=== PATIENT | female | born 1970 | race Caucasian/White ===

== ENCOUNTER 2024-01-09 14:56 | Outpatient (OUT) | payer OTHER, SELFPAY ==
--- NOTE | 2024-01-09 15:02 | US_ITS ---
[address] [address] Patient Name: JACEK LAROSE MRN: [id number] date: 1970 Sex: F Assigned Patient Location: US Current Patient Location: Accession/Order Number: [id number] Exam Date: 01/09/2024 15:03 Report Date: 01/10/2024 06:30 At the request of: SHENG TREJO Procedure: US pelvis w/ transvaginal EXAMINATION: US pelvis w/ transvaginal HISTORY: postmenopausal bleeding N95.0 COMPARISON: No relevant comparison available. TECHNIQUE: Transabdominal and/or transvaginal sonographic examination was performed as indicated by examination type. FINDINGS: UTERUS: Normal size and appearance. Uterus size: 7.0 x 3.8 x 4.7 cm ENDOMETRIUM: Slightly heterogeneous. Endometrial thickness: 8 mm RIGHT OVARY: Normal size and appearance. Duplex Doppler demonstrates normal waveform and flow; resistive index [0.4. Ovary size: 1.9 x 1.7 x 1.9 cm LEFT OVARY: Not seen. No suspicious adnexal findings. CUL-DE-SAC: Unremarkable. No significant free fluid. BLADDER: Unremarkable. OTHER: None. US/US pelvis w/ transvaginal IMPRESSION: 1. Slightly heterogeneous endometrium which is mildly thickened for a postmenopausal patient, 8 mm. Endometrial hyperplasia? Electronically authenticated by: LA NENA LEYVA Date: 01/10/2024 06:30
== END 2024-01-09 14:57 | disposition home or self-care (01) ==
LOC: US 14:56
PROVIDERS: Family Provider Family Medicine; PCP Family Medicine; Visit Provider Obstetrics & Gynecology
DX: N95.0 Postmenopausal bleeding (principal)
CPT/HCPCS: 76830; 76856

== ENCOUNTER 2024-01-27 12:24 | Outpatient (OUT) | payer OTHER, SELFPAY ==
--- OUTSIDE RECORDS SUMMARY | 2024-01-27 12:31 | XMS_ITS | CCD ---
Author Name Unknown Address [address] [place] [address] Organization [facility] Care Team Providers Care Player Piano Technician Name Role Phone Chad Anderson Primary Care Provider [phone] CHONG LAYNE Referring Unavailable HEMEYER, CHAD J Primary Care Unavailable HEMEYER, EDAYAAN J Primary Care Unavailable CHONG LAYNE Referring Unavailable HEMEYER, EDAYAAN J Primary Care Unavailable CHONG LAYNE Referring Unavailable CHONG LAYNE Referring Unavailable HEMEYER, EDAYAAN J Primary Care Unavailable HEMEYER, EDWARD J Primary Care Unavailable CHONG LAYNE Referring Unavailable HEMEYER, EDAYAAN Hoang Primary Care Unavailable HEMEYER, EDWARD J Referring Unavailable CHONG LAYNE Referring Unavailable HEMEYER, EDAYAAN J Primary Care Unavailable CHONG LAYNE Admitting Unavailable CHONG LAYNE Attending Unavailable HEMEYER, EDWARD J Primary Care Unavailable CHONG LAYNE Referring Unavailable CHONG LAYNE Referring Unavailable HEMEYER, EDAYAAN J Primary Care Unavailable HEMEYER, EDAYAAN J Primary Care Unavailable BARBARA GUARDADO Referring Unavailable HEMEYER, EDAYAAN J Primary Care Unavailable CHONG LAYNE Referring Unavailable HEMEYER, EDWARD J Primary Care Unavailable CHONG LAYNE Referring Unavailable HEMEYER, EDAYAAN J Primary Care Unavailable CHONG LAYNE Referring Unavailable HEMEYER, EDAYAAN J Primary Care Unavailable CHONG LAYNE Referring Unavailable HEMEYER, EDAYAAN J Primary Care Unavailable CHONG LAYNE Referring Unavailable HEMEYER, EDWARD J Primary Care Unavailable CHONG LAYNE Referring Unavailable HEMEYER, EDAYAAN J Primary Care Unavailable CHONG LAYNE Referring Unavailable CHONG LAYNE Referring Unavailable HEMEYER, EDWARD J Primary Care Unavailable CHONG LAYNE Referring Unavailable HEMEYER, EDWARD J Primary Care Unavailable CHAD ANDERSON Primary Care Unavailable CHONG LAYNE Referring Unavailable CHAD ANDERSON Primary Care Unavailable CHONG LAYNE Referring Unavailable CHAD ANDERSON Primary Care Unavailable CHONG LAYNE Referring Unavailable Chad Anderson Primary Care Provider [phone] Chad Anderson MD Primary Care Provider Chad Anderson MD Primary Care Provider SHENG VIDALES Attending Unavailable SHENG VIDALES Attending Unavailable Allergies Allergy Classification Reported Allergen(s) Allergy Type Date of Onset Reaction(s) Facility (20 sources) Amoxicillin Drug Allergy 6 Rash [facility] [employer] [facility] Phone: (20 sources) Meperidine Drug Allergy 6 Nausea And Vomiting [facility] [employer] Phone: (2 sources) [place] Drug Allergy 4 [facility] (2 sources) Glycerin Drug Allergy 4 [facility] (2 sources) Meperidine Drug Allergy 4 Nausea Only [facility] (2 sources) WHEAT DEXTRIN Drug Allergy 4 [facility] Medications Current Medications Medication Drug Class(es) Dates Sig (Normalized) Sig (Original) acetaminophen 325 mg / HYDROcodone bitartrate 5 mg oral tablet (1 source) Opioid Agonist Start: 12-05-2020 End: 12-08-2020 take 1 tablet by mouth every six hours as needed for pain and pain, then take 1-2 tablets by mouth every four to six hours as needed for pain and pain HYDROcodone-aceta minophen (NORCO) 5-325 MG per tablet Indications: Right carpal tunnel syndrome Take 1 tablet by mouth every 6 hours as needed for Pain for up to 3 days. 1-2 tabs by mouth every 4-6 hours as needed for pain. 6 tablet 0 12/05/2020 12/08/2020 Active Ascorbic Acid (1 source) Vitamin C Ascorbic Acid (VITAMIN C PO) Take by mouth 0 Active calcium chloride 0.0014 meq/ml / potassium chloride 0.004 meq/ml / sodium chloride 0.103 meq/ml / sodium lactate 0.028 meq/ml injectable solution (1 source) Start: 12-05-2020 lactated ringers infusion 2 ml fentaNYL 0.05 mg/ml injection (2 sources) Opioid Agonist Start: 12-05-2020 fentaNYL (SUBLIMAZE) injection 50 mcg Start: 12-05-2020 fentaNYL (SUBL IMAZE) injection 25 mcg ketorolac tromethamine 10 mg oral tablet (2 sources) Nonsteroidal Anti-inflammatory Drug, Cyclooxygenase Inhibitor Start: 11-11-2017 take 1 tablet by mouth three times daily, then take 1 tablet by mouth three times daily ketorolac (TORADOL) 10 MG tablet Take 1 tablet by mouth 3 times daily for 5 days 1 tab by mouth 3 times daily 15 tablet 0 11/11/2017 Active 2 ml metoclopramide 5 mg/ml prefilled syringe (1 source) Dopamine-2 Receptor Antagonist Start: 12-05-2020 End: 12-05-2020 metoclopramide (REGLAN) injection 10 mg Multiple Vitamins-Minerals (MULTIVITAMIN ADULT PO) (1 source) Multiple Vitamins-Minerals (MULTIVITAMIN ADULT PO) Take by mouth 0 Active 2 ml ondansetron 2 mg/ml injection (1 source) Serotonin-3 Receptor Antagonist Start: 12-05-2020 End: 12-05-2020 ondansetron (ZOFRAN) injection 4 mg oxyCODONE hydrochloride 5 mg oral tablet (1 source) Opioid Agonist Start: 12-05-2020 End: 12-05-2020 oxyCODONE (ROXICODONE) immediate release tablet 5 mg progesterone 200 mg oral capsule (2 sources) Progesterone Start: 12-20-2023 take 1 capsule by mouth once daily at bedtime progesterone 200 MG capsule TAKE 1 CAPSULE BY MOUTH ONCE DAILY AT BEDTIME 0 12/20/2023 Active VITAMIN D PO (1 source) VITAMIN D PO Hector e by mouth 0 Active Zinc (1 source) ZINC PO Take by mouth 0 Active Completed/Discontinued Medications Medication Drug Class(es) Dates Sig (Normalized) Sig (Original) ceFAZolin 2000 mg injection (1 source) Cephalosporin Antibacterial Start: 12-05-2020 End: 12-05-2020 ceFAZolin (ANCEF) 2 g in dextrose 3 % 50 mL IVPB (duplex) ethinyl estradiol 0.035 mg / norethindrone acetate 1 mg oral tablet (20 sources) Estrogen Start: 12-26-2017 End: 11-27-2020 take 1 tablet by mouth once daily NORTREL 1/35, 28, 1-35 MG-MCG per tablet TAKE ONE TABLET BY MOUTH ONCE DAILY 84 tablet 4 12/26/2017 11/27/2020 Discontinued (Therapy completed) liothyronine sodium 0.005 mg oral tablet (20 sources) l-Triiodothyronine End: 11-27-2020 take 1 tablet by mouth twice daily liothyronine (CYTOMEL) 5 MCG tablet Take 5 mcg by mouth 2 times daily 0 11/27/2020 Discontinued (Therapy completed) metoprolol tartrate 25 mg oral tablet (20 sources) beta-Adrenergic Alexia End: 11-27-2020 take 1 tablet by mouth twice daily metoprolol tartrate (LOPRESSOR) 25 MG tablet Take 25 mg by mouth 2 times daily 0 11/27/2020 Discontinued (Therapy completed) Problems Problem Classification Problem Date Documented Da te Episodic/Chronic Menopausal disorders (2 sources) Postmenopausal bleeding; Translations: [Postmenopausal bleeding] 12-27-2023 Chronic Other nervous system disorders (1 source) Carpal tunnel syndrome of right wrist; Translations: [Right carpal tunnel syndrome] Unclassified (2 sources) Patient encounter status; Translations: [Preoperative testing] Results Test Name Value Interpretation Reference Range Facility Screening Mammogram, Chetan singh 07-01-2022 Screening Mammogram, Bilateral COMPARISON: Dating back to January 16, 2020 and July 21, 2018 TECHNIQUE: 2D and 3D Tomosynthesis of the right and left breasts was performed. FINDINGS: Breast composition demonstrates heterogeneously dense parenchyma. Overall appearance stable. No suspicious microcalcifications, dominant mass lesions, or distortion is present. IMPRESSION: BI-RADS 1- Negative Mammogram Board Certified Radiologist. Accredited by the ACR and FDA. MAMMOGRAPHY IS VERY IMPORTANT TO YOUR HEALTH. THE CURRENT CITIZEN OF [place] [employer] GUIDELINES RECOMMENDS ANNUAL MAMMOGRAPHY BEGINNING AT AGE 40 THIS FACILITY USES A REMINDER SYSTEM TO ENSURE ALL PATIENTS RECEIVE REMINDER NOTIFICATIONS AT THE APPROPRIATE TIME BASED ON THE RECOMMENDATIONS OF THIS EXAM. Report reported and signed by Keyshawn Enciso on 07/07/2022 1404 Normal [facility] Is/It Project Manager XR Bone Density (DEXA)on XR Bone Density (DEXA) RegionBMDYoung-AdultA ge-Matched Total(g/cm2)(%)T-Scor e(%)Z-Score [id number]+0.2116+ 1.1 Impression: The mean BMD and corresponding T-score indicated above indicate Normal Bone Mass and places the patient at no significant risk for fracture. This information can serve as a baseline with which to compare future studies. Recommend follow-up exam in 2 years, sooner as clinically necessary. RegionBMDYoung-AdultA ge-Matched Total(g/cm2)(%)T-Scor e(%)Z-Score L1-[id number]+1.6128+ 2.5 Impression: The mean BMD and corresponding T-score indicated above indicate Normal Bone Mass and places the patient no significant risk for fracture. This information can serve as a baseline with which to compare future studies. Recommend follow-up exam in 2 years, sooner as clinically necessary. Comment: The T-score is the primary focus of the interpretation of a patient???s bone mineral density measurement. The T-score is the number of standard deviations an individual is above or below the mean value for a young female having normal bone mass. The WHO defines osteoporosis based on the T-score value??? +1.0 to ???0.9 : Normal bone mass -1.0 to -2.5 : Osteopenia and thus may be at future risk of fracture -2.6 to ???5 : Osteoporosis and ???at significantly increased risk of fracture??? A Z-Score of -2.0 or lower is defined as ???below the expected range for age??? and a Z-Score above -2.0 is ???within the expected range for age.??? Osteoporosis cannot be diagnosed in men under the age of 50 on the basis of BMD alone. Per 2019 ISCD guidelines, Z-Scores (not T-Scores) are preferred when reporting data in premenopausal females and males less than 50 years of age. Report reported and signed by Keyshawn Enciso on 07/05/2022 0822 Normal [facility] Is/It Project Manager COVID-19on 11-30-2020 Source .NASOPHARYNGEAL SWAB [place] [id number] 11-30-2020 SARS-CoV-2 Normal [place], [place] Comment on above: Performed By: #### C OVID #### [employer] [address] [place] [address] Plate Drying Machine Tender: Miguelangel Mora MD [address] [place] [address] Plate Drying Machine Tender: Roger Carmen MD SARS-CoV-2 Not Detected Normal [place], [place] Comment on above: Result Comment: The specimen is NEGATIVE for SARS-CoV-2, the novel coronavirus associated with COVID-19. A negative result does not rule out COVID-19. Anil SARS-CoV-2 for use on the Anil [employer] Systems is a real-time RT-PCR test intended for the qualitative detection of nucleic acids from SARS-CoV-2 in clinician-collected nasal, nasopharyngeal, and oropharyngeal swab specimens from individuals who meet COVID-19 clinical and/or epidemiological criteria. Anil SARS-CoV-2 is for use only under Emergency Use Authorization (EUA) in laboratories certified under Clinical Laboratory Improvement Amendments of 1988 (CLIA), 42 U.S.C. ?263a, that meet requirements to perform high or moderate complexity tests. An individual without symptoms of COVID-19 and who is not shedding SARS-CoV-2 virus would expect to have a negative (not detected) result in this assay. Fact sheet for Healthcare Providers: https://www.fda.gov/media/564022/download Fact sheet for Patients: https://www.fda.gov/media/833946/download METHODOLOGY: RT-PCR Performed By: #### C OVID #### [facility] [address] [place] [address] Plate Drying Machine Tender: Miguelangel Mora MD [facility] [address] [place] [address] [place] [address] Plate Drying Machine Tender: Roger Carmen MD The specimen is NEGATIVE for SARS-CoV-2, the novel coronavirus associated with COVID-19. A negative result does not rule out COVID-19. Anil SARS-CoV-2 for use on the Anil [employer] Systems is a real-time RT-PCR test intended for the qualitative detection of nucleic acids from SARS-CoV-2 in clinician-collected nasal, nasopharyngeal, and oropharyngeal swab specimens from individuals who meet COVID-19 clinical and/or epidemiological criteria. Anil SARS-CoV-2 is for use only under Emergency Use Authorization (EUA) in laboratories certified under Clinical Laboratory Improvement Amendments of 1988 (CLIA), 42 U.S.C. 263a, that meet requirements to perform high or moderate complexity tests. An individual without symptoms of COVID-19 and who is not shedding SARS-CoV-2 virus would expect to have a negative (not detected) result in this assay. Fact sheet for Healthcare Providers: https://www.fda.gov/media/984678/download Fact sheet for Patients: https://www.fda.gov/media/481736/download METHODOLOGY: RT-PCR SARS-CoV-2, Rapid Normal [place], [place] Comment on above: Performed By: #### C OVID #### [address] [id number] Plate Drying Machine Tender: Miguelangel Mora MD [address] [place] [address] Plate Drying Machine Tender: Roger Carmen MD [id number] 11-28-2020 SARS-CoV-2 Source .NASOPHARYNGEAL SWAB Normal [facility] Comment on above: Performed By: #### C OVID #### [address] [id number] Plate Drying Machine Tender: Miguelangel Mora MD [address] [place] [address] Plate Drying Machine Tender: Roger Carmen MD Basic Metabolic Panelon 12-1 Anion gap [Moles/Vol] 7 mmol/L Low 9 - 17 mmol/L [place] Bun/Cre Ratio 34 High [place], [place] Calcium [Mass/Vol] 10.5 mg/dL High 8.6 - 10. 4 mg/dL [place] Chloride [Moles/Vol] 101 mmol/L 98 - 10 7 mmol/L [place] CO2 [Moles/Vol] 28 mmol/L 20 - 31 mmol/L [place] Creatinine [Mass/Vol] 0.64 mg/dL 0.5 - 0.9 mg/dL [place] GFR >60 >60 mL/min [place] GFR Non- >60 >60 mL/min [place] Glucose [Mass/Vol] 106 mg/dL High 70 - 99 mg/dL [place], [place] Interpretation and review of laboratory results Abnormal [place] Potassium [Moles/Vol] 4.9 mmol/L 3.7 - 5.3 mmol/L [place] Sodium [Moles/Vol] 136 mmol/L 135 - 144 mmol/L [place] Urea nitrogen [Mass/Vol] 22 mg/dL High 6 - 20 mg/dL [place] Basic Metabolic Profon 11-06 Calcium [Mass/Vol] 10.5 mg/dL High 8.6-10.4 [facility] Comment on above: Performed By: #### C DP, BMP #### [facility] [address] [place] [address] [place] [address] Plate Drying Machine Tender: Roger Carmen MD (cont.) [facility] Comment on above: Result Comment: Aver age GFR for 50-59 years old: 93 mL/min/1.73sq m Chronic Kidney Disease: <60 mL/min/1.73sq m Kidney failure: <15 mL/min/1.73sq m eGFR calculated using average adult body mass. Additional eGFR calculator available at: http://www.[employer]/multiple_crcl_2012.htm Performed By: #### C DP, BMP #### [facility] [address] [place] [address] Plate Drying Machine Tender: Roger Carmen MD Anion gap [Moles/Vol] 7 mmol/L Low 08-07 [facility] Comment on above: Performed By: #### C DP, BMP #### [facility] [address] [place] [address] Plate Drying Machine Tender: Roger Carmen MD BUN/CRE Ratio 34 High 9-[address] [facility] Comment on above: Performed By: #### C DP, BMP #### [facility] [address] [place], [place] [id number] Plate Drying Machine Tender: Roger Carmen MD Chloride [Moles/Vol] 101 mmol/L Normal 98-107 [facility] Comment on above: Performed By: #### C DP, BMP #### [facility] [address] [place], [place] [id number] Plate Drying Machine Tender: Roger Carmen MD CO2 [Moles/Vol] 28 mmol/L Normal 20-31 [facility] Comment on above: Performed By: #### C DP, BMP #### [facility] [address] [place], [place] [id number] Plate Drying Machine Tender: Roger Carmen MD Creatinine [Mass/Vol] 0.64 mg/dL Normal 0.50-0.90 [facility] Comment on above: Performed By: #### C DP, BMP #### [facility] [address] [place], [place] [id number] Plate Drying Machine Tender: Roger Carmen MD GFR, Amer >60 Normal >60 [facility] Comment on above: Performed By: #### C DP, BMP #### [facility] [address] [place], [place] [id number] Plate Drying Machine Tender: Roger Carmen MD GFR,non Amer >60 Normal >60 [facility] Comment on above: Performed By: #### C DP, BMP #### [facility] [address] [place], [place] [id number] Plate Drying Machine Tender: Roegr Carmen MD Glucose [Mass/Vol] 106 mg/dL High 70-99 [facility] Comment on above: Performed By: #### C DP, BMP #### [facility] [address] [place], [place] [id number] Plate Drying Machine Tender: Roger Carmen MD Potassium [Moles/Vol] 4.9 mmol/L Normal 3.7-5.3 [facility] Comment on above: Performed By: #### C DP, BMP #### [facility] [address] [place] [address] Plate Drying Machine Tender: Roger Carmen MD Sodium [Moles/Vol] 136 mmol/L Normal 135-144 [facility] Comment on above: Performed By: #### C DP, BMP #### [facility] [address] [place] [address] Plate Drying Machine Tender: Roger Carmen MD Staging: Normal [facility] Comment on above: Result Comment: Stag e 1: Some kidney damage normal GFR Stage 2: Mild kidney damage GFR 60-89 Stage 3: Moderate kidney damage GFR 30-59 Stage 4: Severe kidney damage GFR 15-29 Stage 5: Severe kidney damage GFR <15 ESRD - chronic treatment by dialysis or transplant Performed By: #### C DP, BMP #### [facility] [address] [place] [address] Plate Drying Machine Tender: Roger Carmen MD Urea nitrogen [Mass/Vol] 22 mg/dL High 6-20 [facility] Comment on above: Performed By: #### C DP, BMP #### [facility] [address] [place] [address] Plate Drying Machine Tender: Roger Carmen MD CBC Auto Differentialon 10-21 Basophils (Bld) [#/Vol] 0.06 10*3/uL [place] Basophils/100 WBC (Bld) 1 % 0 - 2 % [place] Differential Type NOT REPORTED [place] Eosinophils (Bld) [#/Vol] 0.11 10*3/uL [place] Eosinophils/100 WBC (Bld) 2 % 1 - 4 % [place] Erythrocyte distribution width (RBC) [Ratio] 12.5 % 11.8 - 14.4 % [place] Hematocrit (Bld) [Volume fraction] 43.1 % 36.3 - 47.1 % [place] Hemoglobin (Bld) [Mass/Vol] 14.1 g/dL 11.9 - 15.1 g/dL [place] Immature granulocytes (Bld) [#/Vol] 0 % 0 [place] Immature granulocytes (Bld) [#/Vol] 10*3/uL [place] Lymphocytes (Bld) [#/Vol] 2.87 10*3/uL [place] Lymphocytes/100 WBC (Bld) 40 % 24 - 43 % [place] MCH (RBC) [Entitic mass] 29.4 pg 25.2 - 33.5 pg [place] MCHC (RBC) [Mass/Vol] 32.7 g/dL 28.4 - 34.8 g/dL [place] MCV (RBC) [Entitic vol] 89.8 fL 82.6 - 102.9 fL [place] Monocytes (Bld) [#/Vol] 0.58 10*3/uL [place] Monocytes/100 WBC (Bld) 8 % 3 - 12 % [place] Platelet mean volume (Bld) [Entitic vol] 10.2 fL 8.1 - 13.5 fL [place], [place] Platelets (Bld) [#/Vol] 290 10*3/uL [place] Platelets (Bld) [#/Vol] NOT REPORTED [place] RBC (Bld) [#/Vol] 4.80 10*6/uL 3.95 - 5.1 1 m/uL [place] RBC morphology finding Nom (Bld) NOT REPORTED [place] Segmented neutrophils/100 WBC (Bld) 49 % 36 - 65 % [place] Segs Absolute 3.58 [place] WBC (Bld) [#/Vol] 0.0 10*3/uL 0.0 per 10 0 WBC [place] WBC (Bld) [#/Vol] 7.2 10*3/uL [facility] CBC with Diffon 11-06-2020 Abs. Basophil 0.06 k/uL Normal 0.00-0.[address] [facility] Comment on above: Performed By: #### C DP, BMP #### [address] [place] [id number] Plate Drying Machine Tender: Roger Carmen MD Abs.Imm.Granulocyte <0.03 Normal 0.00-0.30 [facility] Comment on above: Performed By: #### C DP, BMP #### [address] [place] [address] Plate Drying Machine Tender: Roger Carmen MD Abs.Neutrophil (Seg) 3.58 k/uL Normal 1.50-8.10 [facility] Comment on above: Performed By: #### C DP, BMP #### [address] [place] [address] Plate Drying Machine Tender: Roger Carmen MD Basophils/100 WBC (Bld) 1 % Normal 0-2 [facility] Comment on above: Performed By: #### C DP, BMP #### [address] [place] [id number] Plate Drying Machine Tender: Roger Carmen MD Eosinophils (Bld) [#/Vol] 0.11 10*3/uL Normal 0.00-0.44 [facility] Comment on above: Performed By: #### C DP, BMP #### [address] [place] [id number] Plate Drying Machine Tender: Roger Carmen MD Eosinophils/100 WBC (Bld) 2 % Normal 1-4 [facility] Comment on above: Performed By: #### C DP, BMP #### [address] [place] [id number] Plate Drying Machine Tender: Roger Carmen MD Erythrocyte distribution width (RBC) [Ratio] 12.5 % Normal 11.8-14.4 [facility] Comment on above: Performed By: #### C DP, BMP #### [facility] [address] [place], [place] [id number] Plate Drying Machine Tender: Roger Carmen MD Hematocrit (Bld) [Volume fraction] 43.1 % Normal 36.3-47.1 [facility] Comment on above: Performed By: #### C DP, BMP #### [facility] [address] [place], [place] [id number] Plate Drying Machine Tender: Roger Carmen MD Hemoglobin (Bld) [Mass/Vol] 14.1 g/dL Normal 11.9-15.1 [facility] Comment on above: Performed By: #### C DP, BMP #### [address] [place], [facility]83 Plate Drying Machine Tender: Roger Carmen MD Immature granulocytes (Bld) [#/Vol] 0 % Normal 0 [facility] Comment on above: Performed By: #### C DP, BMP #### [facility] [address] [place], [place] [phone] Plate Drying Machine Tender: Roger Carmen MD Lymphocytes (Bld) [#/Vol] 2.87 10*3/uL Normal 1.10-3.70 [facility] Comment on above: Performed By: #### C DP, BMP #### [facility] [address] [place], [facility]83 Plate Drying Machine Tender: Roger Carmen MD Lymphocytes/100 WBC (Bld) 40 % Normal 24-43 [facility] Comment on above: Performed By: #### C DP, BMP #### [facility] [address] [place] [address] Plate Drying Machine Tender: Roger Carmen MD MCH (RBC) [Entitic mass] 29.4 pg Normal 25.2-33.5 [facility] Comment on above: Performed By: #### C DP, BMP #### [facility] [address] [place], [place] [id number] Plate Drying Machine Tender: Roger Carmen MD MCHC (RBC) [Mass/Vol] 32.7 g/dL Normal 28.4-34.8 [facility] Comment on above: Performed By: #### C DP, BMP #### [facility] [address] [place], [facility] Plate Drying Machine Tender: Roger Carmen MD MCV (RBC) [Entitic vol] 89.8 fL Normal 82.6-102.9 [facility] Comment on above: Performed By: #### C DP, BMP #### [address] [place], [facility]83 Plate Drying Machine Tender: Roger Carmen MD Monocytes (Bld) [#/Vol] 0.58 10*3/uL Normal 0.10-1.20 [facility] Comment on above: Performed By: #### C DP, BMP #### [facility] [address] [place], [facility] Plate Drying Machine Tender: Roger Carmen MD Monocytes/100 WBC (Bld) 8 % Normal 3-12 [facility] Comment on above: Performed By: #### C DP, BMP #### [facility] [address] [place], [place] [address] Plate Drying Machine Tender: Roger Carmen MD Neutrophil (Seg) 49 % Normal 36-65 [facility] Comment on above: Performed By: #### C DP, BMP #### [facility] [address] [place], [place] [address] Plate Drying Machine Tender: Roger Carmen MD NRBC Automated 0.0 per 100 WBC Normal 0.0 [facility] Comment on above: Performed By: #### C DP, BMP #### [facility] [address] [place] [id number] Plate Drying Machine Tender: Roger Carmen MD Platelet mean volume (Bld) [Entitic vol] 10.2 fL Normal 8.1-13.5 [facility] Comment on above: Performed By: #### C DP, BMP #### [address] [place] [address] Plate Drying Machine Tender: Roger Carmen MD Platelets (Bld) [#/Vol] 290 10*3/uL Normal 138-453 [facility] Comment on above: Performed By: #### C DP, BMP #### [address] [place], [place] [id number] Plate Drying Machine Tender: Roger Carmen MD RBC (Bld) [#/Vol] 4.80 10*6/uL Normal 3.95-5.11 [facility] Comment on above: Performed By: #### C DP, BMP #### [address] [place], [facility] Plate Drying Machine Tender: Roger Carmen MD WBC (Bld) [#/Vol] 7.2 10*3/uL Normal 3.5-11.3 [facility] Comment on above: Performed By: #### C DP, BMP #### [address] [place], [facility] Plate Drying Machine Tender: Roger Carmen MD Auto Diff Performed NOT REPORTED Normal [facility] Comment on above: Performed By: #### C DP, BMP #### [address] [place], [facility] Plate Drying Machine Tender: Roger Carmen MD Platelets (Bld) [#/Vol] NOT REPORTED Normal [facility] Comment on above: Performed By: #### C DP, BMP #### [address] [place] [address] Plate Drying Machine Tender: Roger Carmen MD RBC morphology finding Nom (Bld) NOT REPORTED Normal [facility] Comment on above: Performed By: #### C DP, BMP #### [facility] [address] [place] [address] Plate Drying Machine Tender: Roger Carmen MD WBC Morphology NOT REPORTED Normal [facility] Comment on above: Performed By: #### C DP, BMP #### [facility] [address] [place] [address] Plate Drying Machine Tender: Roger Carmen MD EKG 12 Leadon 11-06-2020 Atrial Rate 58 BPM [facility], [place] P [place] 56 degrees [facility], [place] P-R Interval 144 ms [facility], [place] Q-T Interval 408 ms [facility] QRS Duration 80 ms [place], [place] QTc Calculation (Bazett) 400 ms [place], [place] R [place] -27 degrees [facility], [place] T [place] 24 degrees [facility], [place] Ventricular Rate 58 BPM [facility], [place] Sinus bradycardia Otherwise normal ECG When compared with ECG of 01-NOV-2017 11:08, No significant change was found Confirmed by YEN LAM ([id number]) on 11/06/2020 1:11:01 PM [place], [place] [facility] Incoming [place] [facility] [place]/06/[place] 1:11 PM EST Sinus bradycardia Otherwise normal ECG When compared with ECG of 01-NOV-2017 11:08, No significant change was found Confirmed by YEN LAM ([id number]) on 11/06/2020 1:11:01 PM [place] Metabolic Panelon 11-06-2020 GFR/1.73 sq M predicted among non-blacks MDRD (S/P/Bld) [Vol rate/Area] [place] Comment on above: Average GFR for 50-5 9 years old: 93 mL/min/1.73sq m Chronic Kidney Disease: <60 mL/min/1.73sq m Kidney failure: <15 mL/min/1.73sq m eGFR calculated using average adult body mass. Additional eGFR calculator available at: http://[email or web address]_[email or web address].htm Stage 1: Some kidney damage normal GFR Stage 2: Mild kidney damage GFR 60-89 Stage 3: Moderate kidney damage GFR 30-59 Stage 4: Severe kidney damage GFR 15-29 Stage 5: Severe kidney damage GFR <15 ESRD - chronic treatment by dialysis or transplant Physical Rehabilitation Offi ce/Clinic Noon 11-03-2020 Physical Rehabilitation Office/Clinic No EMG/NCS of the RUE completed today. Please see report. Electronically signed by Livier Simon MD 11/03/20 11:17 EST Normal [facility] SYLVIA DIGITAL SCREEN W OR WO C AD BILATERALon 01-16-2020 SYLVIA DIGITAL SCREEN W OR WO CAD BILATERAL EXAMINATION: BILATERAL DIGITAL SCREENING MAMMOGRAM, 01/16/2020 TECHNIQUE: CC and MLO views of the left and right breasts were obtained. Computer aided detection was utilized in the interpretation of this exam. 3D tomosynthesis images were obtained. COMPARISON: 21 July 2018; 10 November 2015 HISTORY: Screening. Positive family history of breast cancer; patient's mother at age 48. Oral contraceptive usage times 12 years. Negative history of hormonal replacement therapy. No prior breast interventions. FINDINGS: Breasts are heterogeneously dense which can obscure small masses. No skin thickening, nipple contour changes, malignant type microcalcifications, areas of architectural distortion, or significant interval changes are noted. IMPRESSION: No evidence of malignancy. Advise annual screening mammography. BREAST DENSITY SUMMARY C: The breasts are heterogeneously dense which may obscure small masses. BI-RADS 1 BIRADS: BIRADS - CATEGORY 1 Negative, no evidence of malignancy in either breast. OVERALL ASSESSMENT - NEGATIVE A letter of notification will be sent to the patient regarding the results. RECOMMENDATION: Routine bilateral annual screening mammography is recommended. Follow-up screening mammogram in 1 year is advised. Interpreted by: Frances Granados MD Signed by: Frances Granados MD 01/16/20 Final result Normal [facility] No evidence of malignancy. Advise annual screening mammography. BREAST DENSITY SUMMARY C: The breasts are heterogeneously dense which may obscure small masses. BI-RADS 1 BIRADS: BIRADS - CATEGORY 1 Negative, no evidence of malignancy in either breast. OVERALL ASSESSMENT - NEGATIVE A letter of notification will be sent to the patient regarding the results. RECOMMENDATION: Routine bilateral annual screening mammography is recommended. Follow-up screening mammogram in 1 year is advised. [place] EXAMINATION: BILATERAL DIGITAL SCREENING MAMMOGRAM, 01/16/2020 TECHNIQUE: CC and MLO views of the left and right breasts were obtained. Computer aided detection was utilized in the interpretation of this exam. 3D tomosynthesis images were obtained. COMPARISON: 21 July 2018; 10 November 2015 HISTORY: Screening. Positive family history of breast cancer; patient's mother at age 48. Oral contraceptive usage times 12 years. Negative history of hormonal replacement therapy. No prior breast interventions. FINDINGS: Breasts are heterogeneously dense which can obscure small masses. No skin thickening, nipple contour changes, malignant type microcalcifications, areas of architectural distortion, or significant interval changes are noted. [place], [place] [facility], [facility] Incoming Radiant Results From [facility] - 01/16/2020 10:04 AM EST EXAMINATION: BILATERAL DIGITAL SCREENING MAMMOGRAM, 01/16/2020 TECHNIQUE: CC and MLO views of the left and right breasts were obtained. Computer aided detection was utilized in the interpretation of this exam. 3D tomosynthesis images were obtained. COMPARISON: 21 July 2018; 10 November 2015 HISTORY: Screening. Positive family history of breast cancer; patient's mother at age 48. Oral contraceptive usage times 12 years. Negative history of hormonal replacement therapy. No prior breast interventions. FINDINGS: Breasts are heterogeneously dense which can obscure small masses. No skin thickening, nipple contour changes, malignant type microcalcifications, areas of architectural distortion, or significant interval changes are noted. IMPRESSION: No evidence of malignancy. Advise annual screening mammography. BREAST DENSITY SUMMARY C: The breasts are heterogeneously dense which may obscure small masses. BI-RADS 1 BIRADS: BIRADS - CATEGORY 1 Negative, no evidence of malignancy in either breast. OVERALL ASSESSMENT - NEGATIVE A letter of notification will be sent to the patient regarding the results. RECOMMENDATION: Routine bilateral annual screening mammography is recommended. Follow-up screening mammogram in 1 year is advised. [place] Vital Signs Date Time Vital Sign Value Performing Clinician Facility 01-04-2024 13:43-0500 Body mass index (BMI) [Ratio] 28.13 kg/m2 Sheng Flash DO Work Phone: [facility] 01-04-2024 13:43-0500 Body weight 69.76 kg Sheng Flash DO Work Phone: [facility] 01-04-2024 13:43-0500 Diastolic blood pressure 84 mm[Hg] Sheng Flash DO Work Phone: [facility] 01-04-2024 13:43-0500 Systolic blood pressure 134 mm[Hg] Sheng Flash DO Work Phone: [facility] 12-05-2020 12:30-0500 BP Diastolic 66 mm[Hg] [facility] , [place] 12-05-2020 12:30-0500 BP Systolic 140 mm[Hg] [place], [place] 12-05-2020 12:30-0500 Pulse (Heart Rate) 66 /min [place], [place] 12-05-2020 12:30-0500 Pulse Oximetry 97 % [place], [place] 12-05-2020 12:30-0500 Respiratory Rate 16 /min [facility], [place] 12-05-2020 11:56-0500 Body Temperature 97.7 [degF] [facility], [place] 12-05-2020 09:18-0500 BMI (Body Mass Index) 24.8 kg/m2 [place], [place] 12-05-2020 09:18-0500 Body weight 63.5 kg [place], [place] 12-05-2020 09:18-0500 Height 160 cm [place] Encounters Encounter Date Encounter Type Care Provider Facility Start: 01-18-2024 End: 01-18-2024 ambulatory SHENG FLASH Not Available Start: 01-04-2024 End: 01-04-2024 ambulatory SHENG FLASH Not Available Start: 01-04-2024 End: 01-04-2024 Office outpatient new 20 minutes Sheng Flash DO Work Phone: [facility] Comment on above: Postmenopausal bleed ing Start: 12-05-2020 End: 12-05-2020 Patient encounter procedure [facility] Start: 12-05-2020 End: 12-05-2020 Subsequent hospital visit by physician Chong Layne Work Phone: [facility] Comment on above: Right carpal tunnel syndrome (Primary Dx) Start: 11-28-2020 End: 12-03-2020 Patient encounter procedure [facility] Start: 11-28-2020 End: 12-02-2020 Subsequent hospital visit by physician Kalli Carrollid19 Pat Screening Schedule [facility] ADMIT Comment on above: Preoperative testing Start: 11-06-2020 End: 11-07-2020 Patient encounter procedure [facility] Start: 11-06-2020 End: 11-06-2020 Subsequent hospital visit by physician Chad CISSE EKG Start: 01-24-2020 End: 01-25-2020 Patient encounter procedure [facility] Start: 01-24-2020 End: 01-24-2020 Subsequent hospital visit by physician Manoj CISSE Physical Therapy Comment on above: Arrived Start: 01-22-2020 End: 01-23-2020 Patient encounter procedure [facility] Start: 01-22-2020 End: 01-22-2020 Subsequent hospital visit by physician Harrison [facility] Comment on above: Arrived Start: 01-21-2020 End: 01-22-2020 Patient encounter procedure [facility] Start: 01-21-2020 End: 01-21-2020 Subsequent hospital visit by physician Harrison [facility] Comment on above: Arrived Start: 01-17-2020 End: 01-18-2020 Patient encounter procedure [facility] Start: 01-17-2020 End: 01-17-2020 Subsequent hospital visit by physician Harrison [facility] Therapy Comment on above: Arrived Start: 01-16-2020 End: 01-19-2020 Patient encounter procedure [facility] Start: 01-16-2020 End: 01-18-2020 Subsequent hospital visit by physician [facility] Mamm[facility] Mammography Comment on above: Breast cancer screen ing by mammogram Start: 01-15-2020 End: 01-16-2020 Patient encounter procedure CHAD [facility] Start: 01-15-2020 End: 01-15-2020 Subsequent [facility] Comment on above: Arrived Start: 01-08-2020 End: 01-09-2020 Patient encounter procedure CHAD Hoang [facility] Start: 01-08-2020 End: 01-08-2020 Subsequent hospital visit by physician [facility] Comment on above: Arrived Start: 01-07-2020 End: 01-08-2020 Patient encounter procedure CHAD Hoang [facility] Start: 01-07-2020 End: 01-07-2020 Subsequent hospital visit by physician Harrison MACIEL Physical Therapy Comment on above: Arrived Start: 01-03-2020 End: 01-04-2020 Patient encounter procedure CHAD Hoang [facility] Start: 01-03-2020 End: 01-03-2020 Subsequent hospital visit by physician [facility] Comment on above: Arrived Start: 01-01-2020 End: 01-02-2020 Patient encounter procedure CHAD Hoang [facility] Start: 01-01-2020 End: 01-01-2020 Subsequent hospital visit by physician Harrison Allan [facility] Physical Therapy Comment on above: Arrived Start: 12-31-2019 End: 01-01-2020 Patient encounter procedure CHAD Hoang [facility] Start: 12-31-2019 End: 12-31-2019 Subsequent hospital visit by physician Manoj CISSE Physical Therapy Comment on above: Arrived Start: 12-27-2019 End: 12-28-2019 Patient encounter procedure CHAD Hoang [facility] Start: 12-27-2019 End: 12-27-2019 Subsequent hospital visit by physician Harrison [facility] Comment on above: Arrived Start: 12-25-2019 End: 12-26-2019 Patient encounter procedure CHONG [facility] Start: 12-25-2019 End: 12-25-2019 Subsequent hospital visit by physician [facility] Comment on above: Arrived Start: 12-24-2019 End: 12-25-2019 [facility] Start: 12-24-2019 End: 12-24-2019 Subsequent hospital visit by physician [facility] Comment on above: Arrived Start: 12-20-2019 End: 12-21-2019 Patient encounter procedure CHAD Hoang [facility] Start: 12-20-2019 End: 12-20-2019 Subsequent hospital visit by physician Harrison [facility] Comment on above: Arrived Start: 12-18-2019 End: 12-19-2019 Patient encounter procedure CHAD Hoang [facility] Start: 12-18-2019 End: 12-18-2019 Subsequent hospital visit by physician Harrison [facility] Comment on above: Arrived Start: 12-13-2019 End: 12-14-2019 Patient encounter procedure CHONG [facility] Start: 12-13-2019 End: 12-13-2019 Subsequent hospital visit by physician Harrison [facility] Comment on above: Arrived Start: 12-11-2019 End: 12-12-2019 Patient encounter procedure CHONG [facility] Start: 12-11-2019 End: 12-11-2019 Subsequent hospital visit by physician Manoj Singleton PT [facility] Physical Therapy Comment on above: Arrived Procedures Date Procedure Procedure Detail Performing Clinician Start: 07-01-2022 Mammography Sheng Fazi o DO Work Phone: Start: 11-28-2020 COVID-19 Sami Jau regui Work Phone: Start: 11-06-2020 Ecg routine ecg w/le ast 12 lds w/i&r [facility] Start: 11-06-2020 EKG REPORT [facility] Start: 11-06-2020 Basic metabolic pane l calcium total [facility] Start: 11-06-2020 Blood count complete auto&auto difrntl wbc [facility] Start: 11-06-2020 Ecg routine ecg w/le ast 12 lds w/i&r Chong Layne Work Phone: Start: 11-06-2020 EKG REPORT [facility]pf Scanni ng Start: 11-06-2020 Basic metabolic pane l calcium total Chong Layne Work Phone: Start: 11-06-2020 Blood count complete auto&auto difrntl wbc Chong Layne Work Phone: Start: 01-16-2020 Screening mammograph y bi 2-view breast inc cad CHONG LAYNE Start: 01-16-2020 Screening digital br east tomosynthesis bi Chad Anderson Other Phone: Plan of Treatment Date Care Activity Detail Author Start: 06-15-2027 Screening for malignant neoplasm of cervix [facility] Start: 01-18-2024 End: 01-18-2024 Patient encounter procedure 01/18/2024 2:40 PM EST Consult [facility] [address] [place] [address] Sheng Vidales, DO [address] [place] [address] [facility] Start: 01-04-2024 End: 01-04-2025 US for US PELVIS-TRANSVAG IF INDICATED Imaging Routine Postmenopausal bleeding Expected: 01/04/2024 (Approximate), Expires: 01/04/2025 [facility] Work Phone: Comment on above: Expected: 01/04/2024 (Approximate), Expires: 01/04/2025 Start: 07-22-2023 Influenza vaccination Influenza Vacc ine (#1) [facility] Start: 07-01-2023 Screening for malignant neoplasm of breast Mammogram [facility] Start: 01-16-2022 Screening for malignant neoplasm of breast Breast cancer screen [place] Start: 12-05-2020 End: 12-05-2020 Hospital Encounter [facility] Comment on above: CARPAL TUNNEL RELEAS E ENDOSCOPIC Start: 2020 Screening for malignant neoplasm of colon Colon cancer screen colonoscopy [place] Start: 2020 Shingles Vaccine (1 of 2) Shingles Vaccine (1 of 2) Work Phone: Start: 07-22-2020 Influenza vaccination Flu vaccine (# 1) - [place], [place] Start: 01-25-2020 End: 01-25-2020 Appointment 01/25/2020 Appointment Physical Therapy Manoj Singleton, SHEL[facility] Start: 01-24-2020 End: 01-24-2020 Appointment 01/24/2020 Appointment Physical Therapy Manoj Singleton PT [facility] Start: 01-22-2020 End: 01-22-2020 Appointment 01/22/2020 Appointment Physical Therapy Harrison Allan [facility] Start: 01-21-2020 End: 01-21-2020 Appointment 01/21/2020 Appointment Physical Therapy Harrison Allan [facility] Start: 01-17-2020 End: 01-17-2020 Appointment 01/17/2020 Appointment Physical Therapy Harrison Allan [facility] Start: 01-16-2020 End: 01-16-2020 Appointment 01/16/2020 Appointment [facility] [place] [facility] Start: 01-15-2020 End: 01-15-2020 [facility] Start: 01-14-2020 End: 01-14-2020 Appointment 01/14/2020 Appointment Physical Therapy [facility] Start: 01-10-2020 End: 01-10-2020 Appointment 01/10/2020 Appointment Physical Therapy Manoj Singleton PT [facility] Start: 01-08-2020 End: 01-08-2020 Appointment 01/08/2020 Appointment Physical Therapy Harrison Allan [facility] Start: 01-07-2020 End: 01-07-2020 Appointment 01/07/2020 Appointment Physical Therapy Harrison Allan [facility] Start: 01-03-2020 End: 01-03-2020 Appointment 01/03/2020 Appointment Physical Therapy Harrison Allan [facility] Start: 01-01-2020 End: 01-01-2020 Appointment 01/01/2020 Appointment Physical Therapy Harrison Allan [facility] Start: 12-31-2019 End: 12-31-2019 Appointment 12/31/2019 Appointment Physical Therapy Manoj Singleton, PT [facility] Physical Therapy Start: 12-27-2019 End: 12-27-2019 Appointment 12/27/2019 Appointment Physical Therapy Harrison Allan [facility] Physical Therapy Start: 12-25-2019 End: 12-25-2019 Hospital Encounter [facility] Physical Therap y Start: 12-24-2019 End: 12-24-2019 Patient encounter procedure 12/24/2019 Appointment Physical Therapy Harrison Allan [facility] Physical Therapy Start: 12-20-2019 End: 12-20-2019 Patient encounter procedure 12/20/2019 Appointment Physical Therapy Harrison Allan [facility] Physical Therapy Start: 12-18-2019 End: 12-18-2019 Patient encounter procedure 12/18/2019 Appointment Physical Therapy Harrison Allan [facility] Physical Therapy Start: 12-13-2019 End: 12-13-2019 Patient encounter procedure 12/13/2019 Appointment Physical Therapy Harrison Allan [facility] Physical Therapy Start: 07-22-2019 Influenza vaccination Flu vaccine (# 1) [facility] [employer] Phone: Start: 2010 Lipid panel Lipid screen [place], [place] Start: 2010 Lipid screen Lipid screen [facility] [employer] Phone: Start: 1991 Cervical cancer screen Cervical canc er screen [employer] Phone: Start: 1991 Screening for malignant neoplasm of cervix [facility] Start: 1989 DTaP/Tdap/Td vaccine (1 - Tdap) DTaP/Tdap/Td vaccine (1 - Tdap) [place] Start: 1985 HIV screen HIV screen [facility] [employer] Phone: Start: 1985 HIV screening HIV screen [place], [place] Start: 1981 DTaP/Tdap/Td vaccine (1 - Tdap) DTaP/Tdap/Td vaccine (1 - Tdap) [facility] [employer] Phone: Start: 1970 Hepatitis C screening Hepatitis C sc reen [place], [place] Start: 1970 Screening for malignant neoplasm of colon [facility] Healthcare Phase I & II - meter ed glucose Phase I & II - metered glucose Point of Care Testing Routine As Needed until discontinued starting 12/05/2020 [facility] Comment on above: As Needed until disc ontinued starting 12/05/2020 Immunizations Immunization Date Immunization Notes Care Provider Ana coleman 11-20-2015 influenza virus vacc ine, unspecified formulation Sheng Flash DO Work Phone: [facility] Healthcare Payers Date Payer Category Payer Unknown [employer] [id number] 2024-Present [address] [place] [address] [id number] 2024 Unknown [id number] 2019 Unknown [facility] [place] [id number] xxxxxxxxxxx 2019-Present [address] [address] [place] [address] xxxxxxxxx [id number] 2019 Unknown [id number]. [id number] 2019 Unknown [id number] [id number]. [id number] 2019 Unknown [id number] 1970 Unknown [id number] 2.16.840.1.710913.3.579.2.17 3 1970 Unknown [id number] 2.16.840.1.191850.3.579.2.17 3 1970 Unknown [id number] 2.16.840.1.940933.3.579.2.17 3 1970 Unknown [id number] 2.16.840.1.566515.3.579.2.17 3 1970 Unknown [id number] 2.16.840.1.962023.3.579.2.17 3 1970 Unknown [id number] 2.16.840.1.816389.3.579.2.17 3 1970 Unknown [id number] 2.16.840.1.761772.3.579.2.17 3 1970 Unknown [id number] 2.16.840.1.220439.3.579.2.17 3 1970 Unknown [id number] 2.16.840.1.745246.3.579.2.17 3 1970 Unknown [id number] 2.16.840.1.745452.3.579.2.17 3 1970 Unknown [id number] 2.16.840.1.440076.3.579.2.17 3 1970 Unknown [id number] 2.16.840.1.733953.3.579.2.17 3 1970 Unknown [id number] 2.16.840.1.850807.3.579.2.17 3 1970 Unknown [id number] 2.16.840.1.220515.3.579.2.17 3 1970 Unknown [id number] 2.16.840.1.321076.3.579.2.17 3 1970 Unknown [id number] 2.16.840.1.454975.3.579.2.17 3 1970 Unknown [id number] 2.16.840.1.996855.3.579.2.17 3 1970 Unknown [id number] 2.16.840.1.972354.3.579.2.17 3 1970 Unknown [id number] 2.16.840.1.501065.3.579.2.17 3 1970 Unknown [id number] 2.16.840.1.068632.3.579.2.17 3 1970 Unknown [id number] 2.16.840.1.745473.3.579.2.17 3 1970 Unknown [id number] 2.16.840.1.991509.3.579.2.17 3 1970 Unknown [id number] 2.16.840.1.041180.3.579.2.12 59 1970 Unknown [id number] 2.16.840.1.905592.3.579.2.12 59 Social History Date Type Detail Facility Start: 11-15-2017 End: 11-27-2020 Tobacco smoking status [facility] Former smoker [facility] Phone: End: 02-19-2006 History of tobacco use Current smoker [facility] Phone: End: 02-19-2006 History of tobacco use Cigarette Smoker [facility] Phone: Start: 11-15-2017 End: 11-27-2020 Alcohol intake Current non-drinker of alcohol (finding) [facility] Phone: Sex Assigned At Not on file [facility] [employer] [facility] Phone: Start: 11-15-2017 End: 11-27-2020 Tobacco use and exposure Never used [employer] Exposure to SARS-CoV -2 (event) Not sure [employer] [place] Start: 12-08-2023 Tobacco smoking stat [facility] Never smoked tobacco [facility] Start: 01-04-2024 Alcohol intake Lifetime non-d jory (finding) [facility] Start: 12-08-2023 History of Social function [facility] Start: 12-08-2023 Tobacco use panel [facility] Start: 12-08-2023 Education 13 [facility] Start: 12-08-2023 Alcohol Comment caffeine: 1-2 cups per day [facility] Start: 1970 Sex Assigned At Female [facility] Start: 01-04-2024 Gender identity Identifies as female gender (finding) [facility] Medical Equipment Procedure Code Equipment Code Equipment Origin al Text Equipment Identifier Dates Button Endoscopi c Bicep 2.6x12mm [id number] Start: 11-11-2017 History of Present illness Narrative 01-04-2024 Margo Mathias, CEO & [facility] - 01/04/2024 1:20 PM EST Note Date & Type Note Facility 01-04-2024 History of Presen t illness Narrative Reason for Appointment: Patient ID: Jacek Larose is a 53 y.o. female who presents for postmenopausal bleeding Patient presents today for Acute Visit appointment. Current Medications: has a current medication list which includes the following prescription(s): progesterone. Medical History: Active Ambulatory Problems Diagnosis Date Noted No Active Ambulatory Problems Resolved Ambulatory Problems Diagnosis Date Noted No Resolved Ambulatory Problems Past Medical History: Diagnosis Date Allergy to food Carpal tunnel syndrome of right wrist Ectopic Hypertension (CMS/HCC) [place] exposure Seasonal allergies Family History Problem Relation Name Age of Onset Breast cancer Mother No Known Problems Sister No Known Problems Brother Diabetes Maternal Grandmother No Known Problems Son No Known Problems Son No Known Problems Son No Known Problems Son No Known Problems Daughter Social History Tobacco Use Smoking status: Never Smokeless tobacco: Not on file Substance Use Topics Alcohol use: Never Comment: caffeine: 1-2 cups per day Drug use: Never Past Surgical History: Procedure Laterality Date BICEPS TENODESIS 10/2017 CARPAL TUNNEL RELEASE Right 11/2020 JOE layne ECTOPIC SURGERY left tube removed WISDOM TOOTH EXTRACTION [place] teeth Allergies Allergen Reactions [place] Oil Other Reaction(s): Unknown Glycerin Other Reaction(s): Unknown Meperidine Hcl Nausea Only Wheat Bran Other Reaction(s): Unknown Amoxicillin Rash Meperidine Nausea And Vomiting Review of Systems: Review of Systems Constitutional: Negative. HENT: Negative. Eyes: Negative. Respiratory: Negative. Cardiovascular: Negative. Gastrointestinal: Negative. Genitourinary: Positive for menstrual problem. Musculoskeletal: Negative. Skin: Negative. Neurological: Negative. All other systems reviewed and are negative. Hematological: Negative. Endocrine: Negative. Allergic/Immunologic: Negative. Objective Physical Exam Constitutional: Appearance: Normal appearance. She is well-developed. Cardiovascular: Rate and Rhythm: Normal rate and regular rhythm. Pulmonary: Effort: Pulmonary effort is normal. Breath sounds: Normal breath sounds. Abdominal: General: Bowel sounds are normal. There is no distension. Palpations: Abdomen is soft. Tenderness: There is no abdominal tenderness. There is no guarding or rebound. Musculoskeletal: General: No swelling. Normal range of motion. Right lower leg: No edema. Left lower leg: No edema. Neurological: Mental Status: She is alert and oriented to person, place, and time. Skin: General: Skin is warm and dry. Psychiatric: Mood and Affect: Mood normal. Behavior: Behavior normal. Vitals and nursing note reviewed. Exam conducted with a motorcycle subassembler present. Vitals: Estimated body mass index is 28.13 kg/m as calculated from the following: Height as of 06/10/22: 5' 2 . Weight as of this encounter: 153 lb 12.8 oz. BP: 134/84 No LMP recorded. Assessment/Plan Encounter Diagnosis Name Primary? Postmenopausal bleeding Pt presents with complaints of postmenopausal bleeding. Pt went into menopause late 2019 early 2020. Pt reassured. Pt given ultrasound to have obtained. Discussed all options with pt in detail. Pt to have D&C hysteroscopy. Discussed prophylactic lovenox d/t homozygous MTHFR. Discussed baby aspirin after procedure. Documented by Margo Mathias LPN on behalf of: Sheng Vidales DO documented in this encounter [facility] History of Present illness Narrative 12-20-2019 Harrison Allan - 12/20/2019 8:15 AM EST Note Date & Type Note Facility 12-20-2019 History of Present illness Narrative [facility] Daily Note Patient: Jacek Larose : 1970 CSN #: [id number] Referring Practitioner: Chong Wright MD Referral Date : 12/05/19 Date: 12/20/2019 Diagnosis: Incomplete tear of L rotator cuff, M75.112, Bursitis of L shoulder, M75.52 Treatment Diagnosis: L SLAP tear, incomplete rotator cuff tear Onset Date: 09/25/19 PT Insurance Information: [employer] Total # of Visits Approved: 18 Per Physician Order Total # of Visits to Date: 4 No Show: 0 Canceled Appointment: 0 Pre-Treatment Pain: 2/10 Exercises: Exercise 3: ball rols on mat table Exercise 4: rows/extension --YTB 15x2 Exercise 5: cane supine Exercise 6: post cap stretch 2x Exercise 7: prone exercise--0# Exercise 8: IR/ER--YTB 15x Exercise 9: Joystick-- cw/ccw/fig 8 Exercise 10: purple ball against wall --all directions for scap stab. Exercise 11: Supine ABC's 2# Manual: PROM: Left shld Modalities: Cryotherapy (Minutes\Location): 15 min with IFC E-stim (parameters): IF for pain Assessment Assessment: Pt states shld feels stiff today, states pain is 2-3/10 at end range flexion. Doing well with light scapular exercise. Worked levator scap due to tightness. Cont. to stress shld precautions to pt. IFC/cp end of session. Patient Education Patient Education: Progression of exercise. Pt verbalized/demonstrated good understanding: [x] Yes [] No, pt required further clarification. Post Treatment Pain: 2/10 Plan Times per week: 3 Plan weeks: 6 Goals (Total # of Visits to Date: 4) Short Term Goals - Time Frame for Short term goals: 3 weeks Short term goal 1: Patient will be initiated with a HEP []Met []Partially met []Not met Short term goal 2: Patient will improve L shoulder ER PROM to >80* []Met []Partially met []Not met Short term goal 3: Patient will improve L shoulder flexion to >135* for ADLs []Met []Partially met []Not met []Met []Partially met []Not met Group Home Goals - Time Frame for technician terminal and repeater goals : 6 weeks technician terminal and repeater goal 1: Patient will be independent and compliant with a HEP []Met []Partially met []Not met technician terminal and repeater goal 2: Patient will improve L shoulder AROM to match right for ADLs []Met []Partially met []Not met technician terminal and repeater goal 3: Patient will improve L shoulder strength to >/=4/5 in all major joints and planes []Met []Partially met []Not met halfway goal 4: Patient will report decreased pain to <5/10 at worst. []Met []Partially met []Not met []Met []Partially met []Not met Minutes Tracking: Time In: 809 Time Out: 919 Minutes: 70 Timed Code Treatment Minutes: 62 Minutes Harrison Allan BUSINESS CONTINUITY COORDINATOR Date: 12/20/2019 documented in this encounter [facility] [employer] [facility] Phone: History of Present illness Narrative 12-13-2019 Harrison Allan - 12/13/2019 8:15 AM EST Note Date & Type Note Facility 12-13-2019 History of Present illness Narrative [facility] Daily Note Patient: Jacek Larose : 1970 CSN #: [id number] Referring Practitioner: Chong Wright MD Referral Date : 12/05/19 Date: 12/13/2019 Diagnosis: Incomplete tear of L rotator cuff, M75.112, Bursitis of L shoulder, M75.52 Treatment Diagnosis: L SLAP tear, incomplete rotator cuff tear Onset Date: 09/25/19 PT Insurance Information: [employer] Total # of Visits Approved: 18 Per Physician Order Total # of Visits to Date: 2 No Show: 0 Canceled Appointment: 0 Pre-Treatment Pain: 4/10 Subjective: States pain is better since injection but feels her shld has lost ROM and strength. Current pain level is 4/10 Exercises: Exercise 1: HEP: Therapy ball circles on table x1 min CW/CCW, therapy ball rollouts x10, supine cane ER x10, posterior capsule stretch 2x30 seconds Exercise 2: Codmans 3-4 min Exercise 3: ball rols on mat table Exercise 4: rows/extension --YTB 15x2 Exercise 5: cane supine Exercise 6: post cap stretch 2x Manual: PROM: Left shld Modalities: Cryotherapy (Minutes\Location): 15 min with IFC E-stim (parameters): IFC for pain Assessment Assessment: Pt with complaints of pain ant/post shld. Pt states pain is better following injection but feels her shld is getting tight and weak. Pt initiated on ROM and mild scapular strengthening with no increase in pain. Patient Education Patient Education: Progression of exercise. Pt verbalized/demonstrated good understanding: [x] Yes [] No, pt required further clarification. Post Treatment Pain: 3/10 Plan Times per week: 3 Plan weeks: 6 Goals (Total # of Visits to Date: 2) Short Term Goals - Time Frame for Short term goals: 3 weeks Short term goal 1: Patient will be initiated with a HEP []Met []Partially met []Not met Short term goal 2: Patient will improve L shoulder ER PROM to >80* []Met []Partially met []Not met Short term goal 3: Patient will improve L shoulder flexion to >135* for ADLs []Met []Partially met []Not met []Met []Partially met []Not met Group Home Goals - Time Frame for halfway goals : 6 weeks halfway goal 1: Patient will be independent and compliant with a HEP []Met []Partially met []Not met halfway goal 2: Patient will improve L shoulder AROM to match right for ADLs []Met []Partially met []Not met technician terminal and repeater goal 3: Patient will improve L shoulder strength to >/=4/5 in all major joints and planes []Met []Partially met []Not met technician terminal and repeater goal 4: Patient will report decreased pain to <5/10 at worst. []Met []Partially met []Not met []Met []Partially met []Not met Minutes Tracking: Time In: 0815 Time Out: 15 Minutes: 60 Timed Code Treatment Minutes: 54 Minutes Hrarison Allan BUSINESS CONTINUITY COORDINATOR Date: 12/13/2019 [facility] History of Present illness Narrative 12-11-2019 Manoj Singleton, PT - 12/11/2019 8:45 AM EST Note Date & Type Note Facility 12-11-2019 History of Present illness Narrative [facility] Evaluation Date: 12/11/2019 Patient: Jacek Larose : 1970 CSN #: [id number] Referring Practitioner: Chong Wright MD Referral Date : 12/05/19 Diagnosis: Incomplete tear of L rotator cuff, M75.112, Bursitis of L shoulder, M75.52 Treatment Diagnosis: L SLAP tear, incomplete rotator cuff tear Onset Date: 09/25/19 PT Insurance Information: [employer] Total # of Visits Approved: 18 Total # of Visits to Date: 1 No Show: 0 Canceled Appointment: 0 Subjective Subjective: Pt reports shoveling snow on September 25. She reports pain became gradually worse. She reports anterior and posterior shoulder pain which ranges from 0/10 at best to 10/10 at worst. She reports decreased pain since her cortisone injection. She reports relief with advil and with resting. She reports increased pain with quick jerk movements, reaching overhead, reaching across her body, reaching up her back, and washing her hair. Additional Pertinent Hx: HTN, SLAP repair R shoulder in 2017 Objective Observation/Palpation Posture: Good Palpation: Tenderness at LHB, L upper trap, subacromial bursa RUE General AROM: Flexion 160*, abduction 176*, internal rotation 63*, external rotation 94* LUE General AROM: Flexion 130*, abduction: 134*, IR: 68*, ER: 70* Spine Cervical: Flexion: WNL, extension: 80% with R upper trap/levator pain, L rotation: 80% with R upper trap pain, R rotation: WNL Strength RUE Strength RUE: WFL Strength LUE Strength LUE: Exception L Shoulder Flexion: 2+/5 L Shoulder ABduction: 2+/5 L Shoulder Internal Rotation: 4/5 L Shoulder External Rotation: 4+/5 L Elbow Flexion: 3+/5 Functional Outcome Measures Pt disability report: 75% limitation Assessment Body structures, Functions, Activity limitations: Decreased functional mobility , Decreased high-level IADLs, Decreased ADL status, Decreased ROM, Decreased strength, Increased pain, Decreased endurance Assessment: The patient is a 49 y.o. female who reports an incomplete rotator cuff tear and SLAP tear on imaging. She recently had a cortisone injection which helped reduce pain. She demonstrates decreased L shoulder ROM (Flexion 130*, abduction: 134*, IR: 68*, ER: 70*), decreased strength, and and increased pain levels. She would benefit from skilled PT to address her deficits to improve L UE function. Prognosis: Good Decision Making: Low Complexity Patient Education Patient Education: POC and exercise rationale Pt verbalized/demonstrated good understanding: [X] Yes [] No, pt required further clarification. Goals Short term goals Time Frame for Short term goals: 3 weeks Short term goal 1: Patient will be initiated with a HEP Short term goal 2: Patient will improve L shoulder ER PROM to >80* Short term goal 3: Patient will improve L shoulder flexion to >135* for ADLs technician terminal and repeater goals Time Frame for halfway goals : 6 weeks halfway goal 1: Patient will be independent and compliant with a HEP technician terminal and repeater goal 2: Patient will improve L shoulder AROM to match right for ADLs halfway goal 3: Patient will improve L shoulder strength to >/=4/5 in all major joints and planes halfway goal 4: Patient will report decreased pain to <5/10 at worst. Patient goals : Be able to return to pull-ups, push-ups, and crossfit activities Minutes Tracking: Time In: 844 Time Out: 937 Minutes: 53 Total minutes: 51 Manoj Singleton PT, DPT 12/11/2019 [facility] Phone: Evaluation note Note Date & Type Note Facility Evaluation note Diagnosis Postmenopausal bleeding documented in this encounter [facility] History of Present Illness * Harrison Allan - 12/24/2019 8:30 AM EST [facility] Daily Note Patient: Jacek Larose : 1970 CSN #: [id number] Referring Practitioner: Chong Wright MD Referral Date : 12/05/19 Date: 12/24/2019 Diagnosis: Incomplete tear of L rotator cuff, M75.112, Bursitis of L shoulder, M75.52 Treatment Diagnosis: L SLAP tear, incomplete rotator cuff tear Onset Date: 09/25/19 PT Insurance Information: [employer] Total # of Visits Approved: 18 Per Physician Order Total # of Visits to Date: 5 No Show: 0 Canceled Appointment: 0 Pre-Treatment Pain: 3/10 Subjective: Feeling better,. Pt states she still has some discomfort at end range flexion. Pain 2-3/10 Exercises: Exercise 2: Codmans 3-4 min Exercise 4: rows/extension --YTB 15x2 Exercise 7: prone exercise--0# Exercise 8: IR/ER--YTB 15x Exercise 9: Joystick-- cw/ccw/fig 8 Exercise 10: purple ball against wall --all directions for scap stab. Exercise 11: Supine ABC's 2# Manual: PROM: Left shld Modalities: Cryotherapy (Minutes\Location): 15 min with IFC E-stim (parameters): IFC for pain Assessment Assessment: Pt is doing better with min complaints of pain during session. Mild progressions to scapular exercise. Cont. to advise pt to monitor home activite and exercise. Passive flexion 155-160 before complaints of discomfort Patient Education Patient Education: Progression of exercise. Pt verbalized/demonstrated good understanding: [x] Yes [] No, pt required further clarification. Post Treatment Pain: 2/10 Plan Times per week: 3 Plan weeks: 6 Goals (Total # of Visits to Date: 5) Short Term Goals - Time Frame for Short term goals: 3 weeks Short term goal 1: Patient will be initiated with a HEP []Met []Partially met []Not met Short term goal 2: Patient will improve L shoulder ER PROM to >80* []Met []Partially met []Not met Short term goal 3: Patient will improve L shoulder flexion to >135* for ADLs []Met []Partially met []Not met []Met []Partially met []Not met Group Home Goals - Time Frame for halfway goals : 6 weeks halfway goal 1: Patient will be independent and compliant with a HEP []Met []Partially met []Not met halfway goal 2: Patient will improve L shoulder AROM to match right for ADLs []Met []Partially met []Not met technician terminal and repeater goal 3: Patient will improve L shoulder strength to >/=4/5 in all major joints and planes []Met []Partially met []Not met halfway goal 4: Patient will report decreased pain to <5/10 at worst. 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 Allan BUSINESS CONTINUITY COORDINATOR Date: 12/24/2019 documented in this encounter* Harrison Allan - 12/27/2019 8:15 AM EST [facility] Daily Note Patient: Jacek Larose : 1970 CSN #: [id number] Referring Practitioner: Chong Wright MD Referral Date : 12/05/19 Date: 12/27/2019 Diagnosis: Incomplete tear of L rotator cuff, M75.112, Bursitis of L shoulder, M75.52 Treatment Diagnosis: L SLAP tear, incomplete rotator cuff tear Onset Date: 09/25/19 PT Insurance Information: [employer] Total # of Visits Approved: 18 Per Physician Order Total # of Visits to Date: 7 No Show: 0 Canceled Appointment: 0 Pre-Treatment Pain: 3/10 Subjective: No new complaints. states she stillhas a little anterior shld pain with certain movements. Exercises: Exercise 4: rows/extension --PTB 15x2 , Exercise 6: post cap stretch 2x Exercise 7: prone exercise--3# Exercise 8: IR/ER--YTB 15x Exercise 9: Joystick-- cw/ccw/fig 8 Exercise 10: purple ball against wall --all directions for scap stab. Exercise 11: Supine ABC's 4# Exercise 12: supine flexion/abduction 2# Exercise 13: cybex rows 4pl 15x2 Exercise 14: All 4'2 chest taps, theraband walks Exercise 15: SM push up 15-20x Exercise 16: 90/90 2# 15x Manual: Soft Tissue Mobalization: Levator scap Modalities: Cryotherapy (Minutes\Location): 15 min with [facility] E-stim (parameters): [facility] for pain Assessment Assessment: Pt with no new complaints reported. Still having mild anterior shld pain with certain activities. Slow progression with scapular exercise Patient Education Patient Education: Progression of exercise. Pt verbalized/demonstrated good understanding: [x] Yes [] No, pt required further clarification. Post Treatment Pain: 3/10 Plan Times per week: 3 Plan weeks: 6 Goals (Total # of Visits to Date: 7) Short Term Goals - Time Frame for Short term goals: 3 weeks Short term goal 1: Patient will be initiated with a HEP []Met []Partially met []Not met Short term goal 2: Patient will improve L shoulder ER PROM to >80* []Met []Partially met []Not met Short term goal 3: Patient will improve L shoulder flexion to >135* for ADLs []Met []Partially met []Not met []Met []Partially met []Not met [employer] Goals - Time Frame for technician terminal and repeater goals : 6 weeks halfway goal 1: Patient will be independent and compliant with a HEP []Met []Partially met []Not met technician terminal and repeater goal 2: Patient will improve L shoulder AROM to match right for ADLs []Met []Partially met []Not met technician terminal and repeater goal 3: Patient will improve L shoulder strength to >/=4/5 in all major joints and planes []Met []Partially met []Not met technician terminal and repeater goal 4: Patient will report decreased pain to <5/10 at worst. []Met []Partially met []Not met []Met []Partially met []Not met Minutes Tracking: Time In: 814 Time Out: 929 Minutes: 75 Timed Code Treatment Minutes: 70 Minutes Harrison Allan BUSINESS CONTINUITY COORDINATOR Date: 12/27/2019 documented in this encounter* Manoj Singleton, PT - 12/31/2019 10:30 AM EST [facility] Daily Note Patient: Jacek Larose : 1970 CSN #: [id number] Referring Practitioner: Chong Wright MD Referral Date : 12/05/19 Date: 12/31/2019 Diagnosis: Incomplete tear of L rotator cuff, M75.112, Bursitis of L shoulder, M75.52 Treatment Diagnosis: L SLAP tear, incomplete rotator cuff tear Onset Date: 09/25/19 PT Insurance Information: [employer] Total # of Visits Approved: 18 Per Physician Order Total # of Visits to Date: 8 No Show: 0 Canceled Appointment: 0 Pre-Treatment Pain: 0/10 Subjective: Patient denies pain coming into therapy, but reports she gets pain when opening kitchencounters, reaching to get a cup out of a cupboard with her L UE, shivering or a quick shrug increases pain. Patient reports pain ranges form 0/10 at best to 5/10 at worst. She reports she hasn't beenable to do all her crossfit activities. Exercises: Exercise 3: Ball roll up wall x1 min Exercise 4: rows/extension --PTB 15x2 , Exercise 6: post cap stretch 2x30 seconds/doorway pec stretch 2x30 sec Exercise 8: IR/ER--YTB 15x2 Exercise 9: Joystick-- cw/ccw/fig 8 x20 ea Exercise 10: Brown ball bounce at shoulder height x30 second, and brown ball bounce overhead x30 seconds Exercise 13: cybex rows 5pl 10x2 Exercise 15: SM push up 20x Exercise 16: 90/90, scaption 2# 15x Exercise 17: Lat pulldowns 8 pl 2x10 Modalities: Cryotherapy (Minutes\Location): 15 min with IFC E-stim (parameters): IFC for pain Assessment Body structures, Functions, Activity limitations: Decreased functional mobility , Decreased high-level IADLs, Decreased ADL status, Decreased ROM, Decreased strength, Increased pain, Decreased endurance Assessment: Pt has been seen for her initial evaluation and 7 follow-up appointments focusing on improving shoulder ROM, scapular strength, and shoulder proprioception. She report decreased pain 0/10at best to 5/10 when peforming overhead activities. She demontrates improved shoulder ROM (flexion improved to 150* from 130*, abduction to 157 from 134*, ER to 84* from 70*) and strength, but continues to have pain with MMT of shoulder flexion, abduction, and elbow flexion. She has attempted to perform Crossfit exercises such as kipping pull- ups and cleans, which have increased pain. She is anxious to return to crossfit workouts and was educated on exercises to avoid. Pt to continue per POC atthis time. Patient Education Patient Education: Current progress, POC Pt verbalized/demonstrated good understanding: [x] Yes [] No, pt required further clarification. Post Treatment Pain: 1/10 Plan Times per week: 3 Plan weeks: 6 Goals (Total # of Visits to Date: 8) Short Term Goals - Time Frame for Short term goals: 3 weeks Short term goal 1: Patient will be initiated with a HEP -MET [x]Met []Partially met []Not met Short term goal 2: Patient will improve L shoulder ER PROM to >80* -MET [x]Met []Partially met []Not met Short term goal 3: Patient will improve L shoulder flexion to >135* for ADLs - MET [x]Met []Partially met []Not met []Met []Partially met []Not met [employer] Goals - Time Frame for halfway goals : 6 weeks technician terminal and repeater goal 1: Patient will be independent and compliant with a HEP []Met []Partially met []Not met halfway goal 2: Patient will improve L shoulder AROM to match right for ADLs - PROGRESSING []Met [x]Partially met []Not met halfway goal 3: Patient will improve L shoulder strength to >/=4/5 in all major joints and planes -PROGRESSING []Met [x]Partially met []Not met halfway goal 4: Patient will report decreased pain to <5/10 at worst - PROGRESSING []Met [x]Partially met []Not met []Met []Partially met []Not met Minutes Tracking: Time In: 1030 Time Out: 1133 Minutes: 63 Total time: 61 minutes Manoj Singleton PT, DPT Date: 12/31/2019 documented in this encounter* Harrison Allan - 01/01/2020 8:15 AM EST [facility] Daily Note Patient: Jacek Larose : 1970 CSN #: [id number] Referring Practitioner: Chong Layne MD Referral Date : 12/05/19 Date: 01/01/2020 Diagnosis: Incomplete tear of L rotator cuff, M75.112, Bursitis of L shoulder, M75.52 Treatment Diagnosis: L SLAP tear, incomplete rotator cuff tear Onset Date: 09/25/19 PT Insurance Information: [employer] Total # of Visits Approved: 18 Per Physician Order Total # of Visits to Date: 9 No Show: 0 Canceled Appointment: 0 Pre-Treatment Pain: 1/10 Subjective: Pt reports a mild increase in shld soreness from new exercise added. Exercises: Exercise 4: rows/extension --PTB 15x2 , Exercise 7: prone exercise--3# Exercise 9: Joystick-- cw/ccw/fig 8 x20 ea Exercise 10: Brown ball bounce at shoulder height x30 second, and brown ball bounce overhead x30 seconds Exercise 11: Supine ABC's 4# Exercise 13: cybex rows 5pl 10x2 Exercise 15: SM push up 20x Exercise 16: 90/90, scaption 3# 15x Exercise 17: Lat pulldowns 8 pl 2x10 Manual: PROM: Left shld Modalities: Assessment Assessment: Pt reports mild soreness in shld today. Scapular exercise performed wioth good tolerance. Pt can only tolerate 3# shld flexion in supine postion, 4# increases pain. Cont. to stress no cross fit training at this time. IFC/cp for post ex soreness. Patient Education Patient Education: HEP Pt verbalized/demonstrated good understanding: [x] Yes [] No, pt required further clarification. Post Treatment Pain: 1/10 Plan Times per week: 3 Goals (Total # of Visits to Date: 9) Short Term Goals - Time Frame for Short term goals: 3 weeks Short term goal 1: Patient will be initiated with a HEP -MET []Met []Partially met []Not met Short term goal 2: Patient will improve L shoulder ER PROM to >80* -MET []Met []Partially met []Not met Short term goal 3: Patient will improve L shoulder flexion to >135* for ADLs - MET []Met []Partially met []Not met []Met []Partially met []Not met [employer] Goals - Time Frame for halfway goals : 6 weeks halfway goal 1: Patient will be independent and compliant with a HEP []Met []Partially met []Not met halfway goal 2: Patient will improve L shoulder AROM to match right for ADLs - PROGRESSING []Met []Partially met []Not met technician terminal and repeater goal 3: Patient will improve L shoulder strength to >/=4/5 in all major joints and planes -PROGRESSING []Met []Partially met []Not met technician terminal and repeater goal 4: Patient will report decreased pain to <5/10 at worst - PROGRESSING []Met []Partially met []Not met []Met []Partially met []Not met Minutes Tracking: Time In: 812 Time Out: 829 Minutes: 17 Timed Code Treatment Minutes: 68 Minutes Harrison Allan BUSINESS CONTINUITY COORDINATOR Date: 01/01/2020 documented in this encounter* Harrison Allan - 01/03/2020 8:15 AM EST [facility] Daily Note Patient: Jacek Larose : 1970 CSN #: [id number] Referring Practitioner: Chong Layne MD Referral Date : 12/05/19 Date: 01/03/2020 Diagnosis: Incomplete tear of L rotator cuff, M75.112, Bursitis of L shoulder, M75.52 Treatment Diagnosis: L SLAP tear, incomplete rotator cuff tear Onset Date: 09/25/19 PT Insurance Information: [employer] Total # of Visits Approved: 18 Per Physician Order Total # of Visits to Date: 10 No Show: 0 Canceled Appointment: 0 Pre-Treatment Pain: 3/10 Subjective: States her shld is feeling better but cont. to have pain end range flexion. Exercises: Exercise 4: rows/extension --PTB 15x2 , Exercise 6: post cap stretch 2x30 seconds/doorway pec stretch 2x30 sec Exercise 7: prone exercise--3# Exercise 8: IR/ER--YTB 15x2 Exercise 9: Joystick-- cw/ccw/fig 8 x20 ea Exercise 10: Brown ball bounce at shoulder height x30 second, and brown ball bounce overhead x30 seconds Exercise 11: Supine ABC's 4# Exercise 12: supine flexion/abduction 2# Exercise 13: cybex rows 5pl 10x2 Exercise 14: All 4'2 chest taps, theraband walks Exercise 15: SM push up 20x Exercise 16: 90/90, scaption 3# 15x Exercise 17: Lat pulldowns 8 pl 2x10 Modalities: Cryotherapy (Minutes\Location): 15 min with IFC E-stim (parameters): IFC for pain Assessment Assessment: Pt is feeling better but stll has pain end range flexion 155-155 deg. Cont to modify cross fit training. Plan to progress as tolerated Patient Education Patient Education: HEP Pt verbalized/demonstrated good understanding: [x] Yes [] No, pt required further clarification. Post Treatment Pain: 2/10 Plan Times per week: 3 Plan weeks: 6 Goals (Total # of Visits to Date: 10) Short Term Goals - []Met []Partially met []Not met Short term goal 2: Patient will improve L shoulder ER PROM to >80* -MET []Met []Partially met []Not met Short term goal 3: Patient will improve L shoulder flexion to >135* for ADLs - MET []Met []Partially met []Not met []Met []Partially met []Not met [employer] Goals - Time Frame for halfway goals : 6 weeks technician terminal and repeater goal 1: Patient will be independent and compliant with a HEP []Met []Partially met []Not met technician terminal and repeater goal 2: Patient will improve L shoulder AROM to match right for ADLs - PROGRESSING []Met []Partially met []Not met technician terminal and repeater goal 3: Patient will improve L shoulder strength to >/=4/5 in all major joints and planes -PROGRESSING []Met []Partially met []Not met halfway goal 4: Patient will report decreased pain to <5/10 at worst - PROGRESSING []Met []Partially met []Not met []Met []Partially met []Not met Minutes Tracking: Time In: 812 Time Out: 921 Minutes: 69 Timed Code Treatment Minutes: 65 Minutes Harrison Allan BUSINESS CONTINUITY COORDINATOR Date: 01/03/2020 documented in this encounter* Harrison Allan - 01/07/2020 8:30 AM EST [facility] Therapy Daily Note Patient: Jacek Larose : 1970 CSN #: [id number] Referring Practitioner: Chong Layne MD Referral Date : 12/05/19 Date: 01/07/2020 Diagnosis: Incomplete tear of L rotator cuff, M75.112, Bursitis of L shoulder, M75.52 Treatment Diagnosis: L SLAP tear, incomplete rotator cuff tear Onset Date: 11/05/19 PT Insurance Information: [employer] Total # of Visits Approved: 18 Per Physician Order Total # of Visits to Date: 11 No Show: 0 Canceled Appointment: 0 Pre-Treatment Pain: 2/10 Exercises: Exercise 4: rows/extension --PTB 15x2 , Exercise 6: post cap stretch 2x30 seconds/doorway pec stretch 2x30 sec Exercise 8: IR/ER--YTB 15x2 Exercise 9: Joystick-- cw/ccw/fig 8 x20 ea Exercise 10: Brown ball bounce at shoulder height x30 second, and brown ball bounce overhead x30 seconds Exercise 11: Supine ABC's 4# Exercise 12: supine flexion/abduction 2# Exercise 13: cybex rows 5pl 10x2 Exercise 14: All 4'2 chest taps, theraband walks Exercise 15: SM push up 20x Exercise 16: 90/90, scaption 3# 15x Exercise 17: Lat pulldowns 8 pl 2x10 Manual: PROM: Left shld Modalities: Cryotherapy (Minutes\Location): 15 min with IFC E-stim (parameters): IFC for pain Assessment Assessment: Pain anterior shld. Pt states certain movements continue to produce pain. Mild click cont with ROM. Scapular strengthening well tolerated and ROM has improved with treatment. Cont. to stress modification of cross fit training. Patient Education 2 Patient Education: HEP Pt verbalized/demonstrated good understanding: [x] Yes [] No, pt required further clarification. Post Treatment Pain: 2/10 Plan Times per week: 3 Plan weeks: 6 Goals (Total # of Visits to Date: 11) Short Term Goals - Time Frame for Short term goals: 3 weeks 2 Short term goal 1: Patient will be initiated with a HEP -MET []Met []Partially met []Not met Short term goal 2: Patient will improve L shoulder ER PROM to >80* -MET []Met []Partially met []Not met Short term goal 3: Patient will improve L shoulder flexion to >135* for ADLs - MET []Met []Partially met []Not met []Met []Partially met []Not met Group Home Goals - Time Frame for technician terminal and repeater goals : 6 weeks halfway goal 1: Patient will be independent and compliant with a HEP []Met []Partially met []Not met technician terminal and repeater goal 2: Patient will improve L shoulder AROM to match right for ADLs - PROGRESSING []Met []Partially met []Not met halfway goal 3: Patient will improve L shoulder strength to >/=4/5 in all major joints and planes -PROGRESSING []Met []Partially met []Not met technician terminal and repeater goal 4: Patient will report decreased pain to <5/10 at worst - PROGRESSING []Met []Partially met []Not met []Met []Partially met []Not met Minutes Tracking: Time In: 834 Time Out: 947 Minutes: 73 Timed Code Treatment Minutes: 70 Minutes Harrison Allan BUSINESS CONTINUITY COORDINATOR Date: 01/07/2020 documented in this encounter* Harrison Allan - 01/08/2020 8:15 AM EST [facility] Daily Note Patient: Jacek Larose : 1970 CSN #: [id number] Referring Practitioner: Chong Layne MD Referral Date : 12/05/19 Date: 01/08/2020 Diagnosis: Incomplete tear of L rotator cuff, M75.112, Bursitis of L shoulder, M75.52 Treatment Diagnosis: L SLAP tear, incomplete rotator cuff tear Onset Date: 09/25/19 PT Insurance Information: [employer] Total # of Visits Approved: 18 Per Physician Order Total # of Visits to Date: 12 No Show: 0 Canceled Appointment: 0 Pre-Treatment Pain: 2/10 Subjective: Pain only with certain movements, Pain is toloerable --2/10 Exercises: Exercise 2: . Exercise 3: Ball roll up wall x1 min Exercise 4: rows/extension --PTB 15x2 , Exercise 6: post cap stretch 2x30 seconds/doorway pec stretch 2x30 sec Exercise 7: prone exercise--3# Exercise 8: IR/ER--YTB 15x2 Exercise 13: cybex rows 5pl 10x2 Exercise 16: 90/90, scaption 3# 15x Exercise 17: Lat pulldowns 8 pl 2x10 Exercise 18: SL abduction and ER 5#-4# Manual: PROM: Left shld Soft Tissue Mobalization: Levator scap Modalities: Cryotherapy (Minutes\Location): 15 min with IFC E-stim (parameters): IFC for pain Assessment Assessment: Passive flexion 160-165 with mild pain end range, Abduction 145-145. ER/IR 85-90 deg. Still has some clicking throughout shld ROM. Strength has increased thru modified exercise. [place] Patient Education: HEP Pt verbalized/demonstrated good understanding: [x] Yes [] No, pt required further clarification. Post Treatment Pain: 2/10 Plan Times per week: 3 Plan weeks: 6 Goals (Total # of Visits to Date: 12) Short Term Goals - Time Frame for Short term goals: 3 weeks Short term goal 1: Patient will be initiated with a HEP -MET []Met []Partially met []Not met Short term goal 2: Patient will improve L shoulder ER PROM to >80* -MET []Met []Partially met []Not met Short term goal 3: Patient will improve L shoulder flexion to >135* for ADLs - MET []Met []Partially met []Not met []Met []Partially met []Not met Group Home Goals - Time Frame for technician terminal and repeater goals : 6 weeks technician terminal and repeater goal 1: Patient will be independent and compliant with a HEP []Met []Partially met []Not met halfway goal 2: Patient will improve L shoulder AROM to match right for ADLs - PROGRESSING []Met []Partially met []Not met halfway goal 3: Patient will improve L shoulder strength to >/=4/5 in all major joints and planes -PROGRESSING []Met []Partially met []Not met halfway goal 4: Patient will report decreased pain to <5/10 at worst - PROGRESSING []Met []Partially met []Not met []Met []Partially met []Not met Minutes Tracking: Time In: 814 Time Out: 929 Minutes: 75 Timed Code Treatment Minutes: 70 Minutes Harrison Allan BUSINESS CONTINUITY COORDINATOR Date: 01/08/2020 documented in this encounter* Harrison Allan - 01/15/2020 8:15 AM EST [facility] Daily Note Patient: Jacek Larose : 1970 [facility] #: [id number] Referring Practitioner: Chong Layne MD Referral Date : 12/05/19 Date: 01/15/2020 Diagnosis: Incomplete tear of L rotator cuff, M75.112, Bursitis of L shoulder, M75.52 Treatment Diagnosis: L SLAP tear, incomplete rotator cuff tear Onset Date: 09/25/19 PT Insurance Information: [employer] Total # of Visits Approved: 18 Per Physician Order Total # of Visits to Date: 13 No Show: 0 Canceled Appointment: 0 Pre-Treatment Pain: 3/10 Subjective: Pt states her pain continues when she try to use it during exercise and mil/mod ADL's -- Exercises: Exercise 4: rows/extension --PTB 15x2 , Exercise 5: cane supine Exercise 6: post cap stretch 2x30 seconds/doorway pec stretch 2x30 sec Exercise 7: prone exercise--3# Exercise 8: IR/ER--YTB 15x2 Exercise 9: Joystick-- cw/ccw/fig 8 x20 ea Exercise 10: Brown ball bounce at shoulder height x30 second, and brown ball bounce overhead x30 seconds Exercise 12: supine flexion/abduction 2# Exercise 13: cybex rows 7pl 10x2 Exercise 14: All 4'2 chest taps, theraband walks Exercise 15: SM push up 20x Exercise 16: 90/90, scaption 3# 15x Exercise 17: Lat pulldowns 8 pl 2x10 Exercise 18: SL abduction and ER 5#-4# Manual: PROM: Left shld Modalities: Cryotherapy (Minutes\Location): 15 min with IF E-stim (parameters): IF for pain Assessment Assessment: Pain remains about a 3/10. PROM is doing fine. Strength is slowly increasing but remains limited> [facility] but states she did not see the Dr. Patient Education Patient Education: HEP Pt verbalized/demonstrated good understanding: [x] Yes [] No, pt required further clarification. Post Treatment Pain: 3/10 Plan Times per week: 3 Goals (Total # of Visits to Date: 13) Short Term Goals - Time Frame for Short term goals: 3 weeks Short term goal 1: Patient will be initiated with a HEP -MET []Met []Partially met []Not met Short term goal 2: Patient will improve L shoulder ER PROM to >80* -MET []Met []Partially met []Not met Short term goal 3: Patient will improve L shoulder flexion to >135* for ADLs - MET []Met []Partially met []Not met []Met []Partially met []Not met [employer] Goals - Time Frame for technician terminal and repeater goals : 6 weeks halfway goal 1: Patient will be independent and compliant with a HEP []Met []Partially met []Not met halfway goal 2: Patient will improve L shoulder AROM to match right for ADLs - PROGRESSING []Met []Partially met []Not met technician terminal and repeater goal 3: Patient will improve L shoulder strength to >/=4/5 in all major joints and planes -PROGRESSING []Met []Partially met []Not met technician terminal and repeater goal 4: Patient will report decreased pain to <5/10 at worst - PROGRESSING []Met []Partially met []Not met []Met []Partially met []Not met Minutes Tracking: Time In: 814 Time Out: 930 Minutes: 76 Timed Code Treatment Minutes: 70 Minutes Harrison Allan BUSINESS CONTINUITY COORDINATOR Date: 01/15/2020 documented in this encounter* Harrison Allan - 01/17/2020 8:15 AM EST [facility] Daily Note Patient: Jacek Larose : 1970 CSN #: [id number] Referring Practitioner: Chong Layne MD Referral Date : 12/05/19 Date: 01/17/2020 Diagnosis: Incomplete tear of L rotator cuff, M75.112, Bursitis of L shoulder, M75.52 Treatment Diagnosis: L SLAP tear, incomplete rotator cuff tear Onset Date: 09/25/19 PT Insurance Information: [employer] Total # of Visits Approved: 18 Per Physician Order Total # of Visits to Date: 14 No Show: 0 Canceled Appointment: 0 Pre-Treatment Pain: 2-3/10 Subjective: Pt with no new complaints. States pain continue to limit activities. Exercises: Exercise 6: post cap stretch 2x30 seconds/doorway pec stretch 2x30 sec Exercise 7: prone exercise--3# Exercise 9: Joystick-- cw/ccw/fig 8 x20 ea Exercise 10: Brown ball bounce at shoulder height x30 second, and brown ball bounce overhead x30 seconds Exercise 11: Supine ABC's 4# Exercise 12: supine flexion/abduction 2# Exercise 13: cybex rows 7pl 10x2 Exercise 14: All 4'2 chest taps, theraband walks Exercise 15: SM push up 20x Exercise 16: 90/90, scaption 4# 15x Exercise 17: Lat pulldowns 8 pl 2x10 Exercise 18: SL abduction and ER 5#-4# Manual: PROM: Left shld Soft Tissue Mobalization: Levator scap--sidelying Modalities: Cryotherapy (Minutes\Location): 15 min with IFC E-stim (parameters): IFC for pain Assessment Assessment: Passive range remains 165 deg. Strength slowly increasing but limited by pain. Worked levator sacp and UT due to mod tissue tightness Patient Education Patient Education: HEP Pt verbalized/demonstrated good understanding: [x] Yes [] No, pt required further clarification. Post Treatment Pain: 2-3 Plan Plan weeks: 6 Goals (Total # of Visits to Date: 14) Short Term Goals - Time Frame for Short term goals: 3 weeks Short term goal 1: Patient will be initiated with a HEP -MET []Met []Partially met []Not met Short term goal 2: Patient will improve L shoulder ER PROM to >80* -MET []Met []Partially met []Not met Short term goal 3: Patient will improve L shoulder flexion to >135* for ADLs - MET []Met []Partially met []Not met []Met []Partially met []Not met Group Home Goals - Time Frame for technician terminal and repeater goals : 6 weeks technician terminal and repeater goal 1: Patient will be independent and compliant with a HEP []Met []Partially met []Not met halfway goal 2: Patient will improve L shoulder AROM to match right for ADLs - PROGRESSING []Met []Partially met []Not met technician terminal and repeater goal 3: Patient will improve L shoulder strength to >/=4/5 in all major joints and planes -PROGRESSING []Met []Partially met []Not met technician terminal and repeater goal 4: Patient will report decreased pain to <5/10 at worst - PROGRESSING []Met []Partially met []Not met []Met []Partially met []Not met Minutes Tracking: Time In: 814 Time Out: 934 Minutes: 80 Timed Code Treatment Minutes: 76 Minutes Harrison Allan BUSINESS CONTINUITY COORDINATOR Date: 01/17/2020 documented in this encounter* Jerrell Harrison Castillo - 01/21/2020 8:30 AM EST [facility] Daily Note Patient: Jacek Larose : 1970 CSN #: [id number] Referring Practitioner: Chong Layne MD Referral Date : 12/05/19 Date: 01/21/2020 Diagnosis: Incomplete tear of L rotator cuff, M75.112, Bursitis of L shoulder, M75.52 Treatment Diagnosis: L SLAP tear, incomplete rotator cuff tear Onset Date: 09/25/19 PT Insurance Information: [employer] Total # of Visits Approved: 18 Per Physician Order Total # of Visits to Date: 15 No Show: 0 Canceled Appointment: 0 Pre-Treatment Pain: 3/10 Exercises: Exercise 3: Ball roll up wall x1 min Exercise 4: rows/extension --PTB 15x2 , Exercise 7: prone exercise--3# Exercise 8: IR/ER--YTB 15x2 Exercise 9: Joystick-- cw/ccw/fig 8 x20 ea Exercise 11: Supine ABC's 4# Exercise 12: supine flexion 3#/abduction 5# serratus punches 7# Exercise 13: cybex rows 7pl 10x2 Exercise 14: All 4'2 chest taps, theraband walks Exercise 15: SM push up 20x Exercise 16: 90/90, scaption 4# 15x Exercise 17: Lat pulldowns 8 pl 2x10 Exercise 18: SL abduction and ER 5#-4# Manual: PROM: Left shld Assessment Assessment: Status is about the same, Strength slowly increasing. Pt cont to modify cross fit training. Pain with and clicking cont about the shld. No modalities today. Patient Education Patient Education: HEP Pt verbalized/demonstrated good understanding: [x] Yes [] No, pt required further clarification. Post Treatment Pain: 3/10 Plan Times per week: 3 Plan weeks: 6 Goals (Total # of Visits to Date: 15) Short Term Goals - Time Frame for Short term goals: 3 weeks Short term goal 1: Patient will be initiated with a HEP -MET []Met []Partially met []Not met Short term goal 2: Patient will improve L shoulder ER PROM to >80* -MET []Met []Partially met []Not met Short term goal 3: Patient will improve L shoulder flexion to >135* for ADLs - MET []Met []Partially met []Not met []Met []Partially met []Not met Group Home Goals - Time Frame for halfway goals : 6 weeks halfway goal 1: Patient will be independent and compliant with a HEP []Met []Partially met []Not met halfway goal 2: Patient will improve L shoulder AROM to match right for ADLs - PROGRESSING []Met []Partially met []Not met halfway goal 3: Patient will improve L shoulder strength to >/=4/5 in all major joints and planes -PROGRESSING []Met []Partially met []Not met technician terminal and repeater goal 4: Patient will report decreased pain to <5/10 at worst - PROGRESSING []Met []Partially met []Not met []Met []Partially met []Not met Minutes Tracking: Time In: 0830 Time Out: 0930 Minutes: 60 Harrison Allan BUSINESS CONTINUITY COORDINATOR Date: 01/21/2020 documented in this encounter* Harrison Allan - 01/22/2020 8:15 AM EST [facility] Daily Note Patient: Jacek Larose : 1970 CSN #: [id number] Referring Practitioner: Chong Layne MD Referral Date : 12/05/19 Date: 01/22/2020 Diagnosis: Incomplete tear of L rotator cuff, M75.112, Bursitis of L shoulder, M75.52 Treatment Diagnosis: L SLAP tear, incomplete rotator cuff tear Onset Date: 09/25/19 PT Insurance Information: [employer] Total # of Visits Approved: 18 Per Physician Order Total # of Visits to Date: 16 No Show: 0 Canceled Appointment: 0 Pre-Treatment Pain: 4/10 Exercises: Exercise 4: rows/extension --PTB 15x2 , Exercise 6: post cap stretch 2x30 seconds/doorway pec stretch 2x30 sec Exercise 7: prone exercise--4#& 5# Exercise 11: Supine ABC's 4# Exercise 12: supine flexion 4#/abduction 5# serratus punches 10# Exercise 13: cybex rows 7pl 10x2 Exercise 14: All 4'2 chest taps, theraband walks Exercise 15: SM push up 20x Exercise 16: 90/90, scaption 4# 15x Exercise 17: Lat pulldowns 8 pl 2a27--aaiqr, 6pl waist Exercise 18: SL abduction and ER 5#-4# Assessment Assessment: Pt has one session remaining. Pt states strength has improved but pain is only a littlebetter. Pt to see Dr. Layne in the next few weeks Patient Education Patient Education: HEP Pt verbalized/demonstrated good understanding: [x] Yes [] No, pt required further clarification. Post Treatment Pain: 3/10 Plan Times per week: 3 Plan weeks: 6 Goals (Total # of Visits to Date: 16) Short Term Goals - Time Frame for Short term goals: 3 weeks Short term goal 1: Patient will be initiated with a HEP -MET []Met []Partially met []Not met Short term goal 2: Patient will improve L shoulder ER PROM to >80* -MET []Met []Partially met []Not met Short term goal 3: Patient will improve L shoulder flexion to >135* for ADLs - MET []Met []Partially met []Not met []Met []Partially met []Not met [employer] Goals - Time Frame for technician terminal and repeater goals : 6 weeks halfway goal 1: Patient will be independent and compliant with a HEP []Met []Partially met []Not met technician terminal and repeater goal 2: Patient will improve L shoulder AROM to match right for ADLs - PROGRESSING []Met []Partially met []Not met halfway goal 3: Patient will improve L shoulder strength to >/=4/5 in all major joints and planes -PROGRESSING []Met []Partially met []Not met halfway goal 4: Patient will report decreased pain to <5/10 at worst - PROGRESSING []Met []Partially met []Not met []Met []Partially met []Not met Minutes Tracking: Time In: 814 Time Out: 914 Minutes: 60 Timed Code Treatment Minutes: 57 Minutes Harrison Allan BUSINESS CONTINUITY COORDINATOR Date: 01/22/2020 documented in this encounter* Manoj Singleton, PT - 01/24/2020 8:30 AM EST [facility] Daily Note Patient: Jacek Larose : 1970 CSN #: [id number] Referring Practitioner: Chong Layne MD Referral Date : 12/05/19 Date: 01/24/2020 Diagnosis: Incomplete tear of L rotator cuff, M75.112, Bursitis of L shoulder, M75.52 Treatment Diagnosis: L SLAP tear, incomplete rotator cuff tear Onset Date: 09/25/19 PT Insurance Information: [employer] Total # of Visits Approved: 18 Per Physician Order Total # of Visits to Date: 17 No Show: 0 Canceled Appointment: 0 Pre-Treatment Pain: 0/10 Subjective: Pt denies pain coming into therapy. She reports upper trap soreness coming into therapytoday. She reports difficulty with lifting groceries in a large paper bag, picking up children, andmoving clothes from the washer to dryer. She reports decreased pain with sleeping and hasn't been waking up as stiff and sore. Patient reports pain ranges from 0/10 at best to 7/10 at worst. Exercises: Exercise 2: UBE: 60RPM standing x4 min forward/4 min back Exercise 3: Ball roll up wall x1 min Exercise 4: rows/extension --PTB 15x2 , Exercise 6: post cap stretch 2x30 seconds/doorway pec stretch 2x30 sec Exercise 8: IR/ER--YTB 15x2 Exercise 9: Joystick-- cw/ccw/fig 8 x20 ea Exercise 13: cybex rows 7pl 10x2 Exercise 15: SM push up 20x Exercise 16: 90/90, scaption 4# 15x Assessment Body structures, Functions, Activity limitations: Decreased functional mobility , Decreased high-level IADLs, Decreased ADL status, Decreased ROM, Decreased strength, Increased pain, Decreased endurance Assessment: Pt has attended her initial evaluation and 16 follow-up appointments focusing on ROM and shoulder stability training. She reports pain ranges from 0/10 at best to 7/10 at worst. She reports she has difficulty with lifting object such as groceries and laundry. 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 Since her initial evaluation shedemonstrates improved shoulder ROM (Flexion: 160*, Abduction: 155*, IR: 76*, ER: 84*), and has beenable to progress with resistance with exercises, but continues to break with MMT due to discomfort.(MMT measures: L shoulder flexion: 4/5, shoulder abduction: 3+/5, internal rotation: 5/5, external rotation 4+/5, L elbow flexion: 4/5) She is currently independent with a HEP and was educated on importance of continuing. She was also educated on exercises to avoid such as kipping pull-ups, deep push-ups, overhead lifting, back/front squats. She reports she is returning to physician and requests to be put on hold at this time. Patient Education Patient Education: HEP Pt verbalized/demonstrated good understanding: [x] Yes [] No, pt required further clarification. Post Treatment Pain: 1-2/10 Plan Times per week: 3 Plan weeks: 6 Goals (Total # of Visits to Date: 17) Short Term Goals - Time Frame for Short term goals: 3 weeks Short term goal 1: Patient will be initiated with a HEP -MET [x]Met []Partially met []Not met Short term goal 2: Patient will improve L shoulder ER PROM to >80* -MET [x]Met []Partially met []Not met Short term goal 3: Patient will improve L shoulder flexion to >135* for ADLs - MET [x]Met []Partially met []Not met []Met []Partially met []Not met [employer]per Goals - Time Frame for technician terminal and repeater goals : 6 weeks technician terminal and repeater goal 1: Patient will be independent and compliant with a HEP -MET [x]Met []Partially met []Not met technician terminal and repeater goal 2: Patient will improve L shoulder AROM to match right for ADLs - PROGRESSING []Met [x]Partially met []Not met technician terminal and repeater goal 3: Patient will improve L shoulder strength to >/=4/5 in all major joints and planes -PROGRESSING []Met [x]Partially met []Not met technician terminal and repeater goal 4: Patient will report decreased pain to <5/10 at worst - PROGRESSING []Met [x]Partially met []Not met []Met []Partially met []Not met Minutes Tracking: Time In: 829 Time Out: 916 Minutes: 47 Timed Code Treatment Minutes: 45 Minutes Manoj Singleton PT, DPT Date: 01/24/2020 documented in this encounter* Mel Harding RN - 12/05/2020 12:34 PM EST Patient verbalizes readiness for discharge. All criteria met. Discharge Criteria Inpatients must meet Criteria 1 through 7. All other patients are either YES or N/A. If a NO is chosen then Anesthesia or Surgeon must be notified. 1. Minimum 30 minutes after last dose of sedative medication, minimum 120 minutes after last dose of reversal agent. Yes 2. Systolic BP stable within 20 mmHg for 30 minutes & systolic BP between 90 & 180 or within 10 mmHg of baseline. Yes 3. Pulse between 60 and 100 or within 10 bpm of baseline. Yes 4. Spontaneous respiratory rate >/= 10 per minute. Yes 5. SaO2 >/= 95 or >/= baseline. Yes 6. Able to cough and swallow or return to baseline function. Yes 7. Alert and oriented or return to baseline mental status. Yes 8. Demonstrates controlled, coordinated movements, ambulates with steady gait, or return to baseline activity function. Yes 9. Minimal or no pain or nausea, or at a level tolerable and acceptable to patient. Yes 10. Takes and retains oral fluids as allowed. Yes 11. Procedural / perioperative site stable. Minimal or no bleeding. Yes 12. If GI endoscopy procedure, minimal or no abdominal distention or passing flatus. N/A 13. Written discharge instructions and emergency telephone number provided. Yes 14. Accompanied by a responsible adult. Yes * Mel Harding RN - 12/05/2020 12:23 PM EST Discharge instructions reviewed with patient and patient's spouse. Verbalized understanding and denied any questions. * Lily Bolden RN - 11/27/2020 2:34 PM EST Patient instructed on the pre-operative, intra-operative, and post-operative process. Patient instructed on NPO status. Medication instructions and Pre operative instruction sheet reviewed over the phone. documented in this encounter* Harrison Allan - 12/25/2019 8:15 AM EST [facility] Out[facility] Physical Therapy Daily Note Patient: Jacek Larose : 1970 CSN #: [id number] Referring Practitioner: Chong Wright MD Referral Date : 12/05/19 Date: 12/25/2019 Diagnosis: Incomplete tear of L rotator cuff, M75.112, Bursitis of L shoulder, M75.52 Treatment Diagnosis: L SLAP tear, incomplete rotator cuff tear Onset Date: 09/25/19 PT Insurance Information: [employer] Total # of Visits Approved: 18 Per Physician Order Total # of Visits to Date: 6 No Show: 0 Canceled Appointment: 0 Pre-Treatment Pain: 2/10 Subjective: Pt states she had a little pain in anterior shld. Rates apain 2/10 Exercises: Exercise 3: ball rols on mat table Exercise 4: rows/extension --YTB 15x2 Exercise 6: post cap stretch 2x Exercise 7: prone exercise--0# Exercise 8: IR/ER--YTB 15x Exercise 9: Joystick-- cw/ccw/fig 8 Exercise 10: purple ball against wall --all directions for scap stab. Exercise 11: Supine ABC's 2# Exercise 12: supine flexion/abduction 2# Manual: PROM: Left shld Soft Tissue Mobalization: Levator scap Modalities: Cryotherapy (Minutes\Location): 15 min with IFC E-stim (parameters): IFC for pain Assessment Assessment: Mild TTP over biceps tendon today. Reviewed shld precautions and HEP. Doing well with PROM with no catching noted this date. Worked levator scap due to tightness. Patient Education Patient Education: Progression of exercise. Pt verbalized/demonstrated good understanding: [x] Yes [] No, pt required further clarification. Post Treatment Pain: 2/10 Plan Times per week: 3 Plan weeks: 6 Goals (Total # of Visits to Date: 6) Short Term Goals - Time Frame for Short term goals: 3 weeks Short term goal 1: Patient will be initiated with a HEP []Met []Partially met []Not met Short term goal 2: Patient will improve L shoulder ER PROM to >80* []Met []Partially met []Not met Short term goal 3: Patient will improve L shoulder flexion to >135* for ADLs []Met []Partially met []Not met []Met []Partially met []Not met [employer] Goals - Time Frame for technician terminal and repeater goals : 6 weeks technician terminal and repeater goal 1: Patient will be independent and compliant with a HEP []Met []Partially met []Not met technician terminal and repeater goal 2: Patient will improve L shoulder AROM to match right for ADLs []Met []Partially met []Not met technician terminal and repeater goal 3: Patient will improve L shoulder strength to >/=4/5 in all major joints and planes []Met []Partially met []Not met halfway goal 4: Patient will report decreased pain to <5/10 at worst. 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 Date: 12/25/2019 documented in this encounter Advance Directives No Advanced Directives Records FoundDocuments on File Type Date Recorded Patient New Order Clerk Expl anation Advance Directives and Living Will Power of Senior Cobol Developer Documents on File Type Date Recorded Patient New Order Clerk Expl anation ACP-Advance Directive ACP-Power of Senior Cobol Developer Documents on File Type Date Recorded Patient New Order Clerk Expl anation ACP-Advance Directive ACP-Power of Senior Cobol Developer Documents on File Type Date Recorded Patient New Order Clerk Expl anation Advance Directives and Living Will Power of Senior Cobol Developer Summary Purpose Family History No Family History Records FoundNo Family History Records FoundNo Family History Records FoundNo Family History Records Found Discharge Instructions * Instructions* Chong Layne MD - 12/05/2020 SAME DAY SURGERY INSTRUCTIONS 1. Do not drive or operate hazardous machinery. 2. Do not make important personal or business decisions for 24 hours. 3. Do not drink alcoholic beverages. 4. Do not smoke tobacco products. 5. Eat light foods initially (i.e., Jell-O, soups, etc) and drink plenty of fluids. 6. If your bandages become soaked with a bright red blood, place another dressing pad over your bandages. (Do not remove original bandage.) Call your surgeon for further instructions. A small amount of bright red blood is to be expected. 7. Limit your activities for 48 hours. Do not engage in heavy work until your surgeon gives you permission. 8. Report the following signs or any questions regarding your physical condition to your surgeon immediately: Excessive swelling of, or around, the wound area Redness Temperature of 101 (degrees F) or above Excessive pain 9. Call your surgeon, , for any questions regarding your surgery. Call [phone] forurgent questions after 5PM until 8AM 10. Call for an appointment to see your surgeon in 2 weeks. SPECIAL INSTRUCTIONS AND MEDICATIONS 1. No firm gripping, pushing, pulling, lifting more than several pounds for at least 2 weeks. 2. Move fingers and wrist to improve circulation. Work on restoring full finger range of motion. Atyour 2 week follow up appointment you should be able to make a complete fist. 3. Use prescribed pain pill as directed by the doctor. You may use aspirin or Tylenol if you prefer. 4. Keep your dressing on an dry unless instructed differently by your physician. 5. Use ice as instructed. 6. Remove operative bandages: 12/06. Place a band aid over incision or cover with new gauze and dante wrap 7. Keep incisions/dressings dry. If they happen to get wet remove wet dressing and place a new dry dressing. Chong Layne MD 12/05/2020 12:09 PM documented in this encounter Assessments Diagnosis Right carpal tunnel syndrome- Primary Carpal tunnel syndrome Diagnosis Preoperative testing Preoperative examination, unspecified Diagnosis Breast cancer screening by mammogram Reason for Referral Status Reason Specialty Diagnoses / Procedures Referred By Contact Referred To Contact Pending Review Radiology Diagnoses Breast cancer screening by mammogram Procedures SYLVIA DIGITAL SCREEN W OR WO CAD BILATERAL Chad Anderson MD [address] [place] [address] Fax: Additional Source Comments INFORMATION SOURCE (unrecogn ized section and content) DATE CREATED AUTHOR 11/05/2020 [facility] DATE CREATED AUTHOR AUTHOR'S ORGANIZ ATION 12/05/2020 [facility] DATE CREATED AUTHOR AUTHOR'S ORGANIZ ATION 07/14/2022 [facility] DATE CREATED AUTHOR AUTHOR'S ORGANIZ ATION 01/21/2024 [facility] EPIC Reason for Visit (unrecogniz ed section and content) Status Reason Specialty Diagnoses / Procedures Referre d By Contact Referred To Contact Diagnoses Carpal tunnel syndrome on right RIGHT CARPAL TUNNEL SYNDROME Procedures UT WRIST ARTHROSCOP,RELEASE XVERS LIG CARPAL TUNNEL RELEASE ENDOSCOPIC Chong Layne MD [address] [place] [address] Status Reason Specialty Diagnoses / Procedures Referre d By Contact Referred To Contact Open Radiology Diagnoses Encounter for screening mammogram for malignant neoplasm of breast Procedures HC MAMMO SCREENING INCL CAD IF PERF HC MAMMOGRAM DIGITAL SCREEN BILAT Chad Anderson MD [address] [place] [address] Fax: [facility] [address] [place] [id number] Reason Comments postmenopausal bleeding Ordered Prescriptions (unrec ognized section and content) Prescription Sig Dispensed Refills Start Date End Da te HYDROcodone-acetaminophen (NORCO) 5-325 MG per tabletIndications:Right carpal tunnel syndrome Take 1 tablet by mouth every 6 hours as needed for Pain for up to 3 days. 1-2 tabs by mouth every 4-6 hours as needed for pain. 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 This clinical summary was aggregated from multiple sources. Caution should be exercised in using it in the provision of clinical care. This summary normalizes information from multiple sources, and as a consequence, information in this document may materially change the coding, format and clinical context of patient data. In addition, data may be omitted in some cases. CLINICAL DECISIONS SHOULD BE BASED ON THE PRIMARY CLINICAL RECORDS. [employer] provides no warranty or guarantee of the accuracy or completeness of information in this document.
--- NOTE | 2024-01-27 13:13 | ECG_ITS ---
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
[2024-01-27 14:08] LABS: INR 0.94; Partial Thromboplastin Time 30.2 sec (22.3-36.2)
== END 2024-01-27 12:25 | disposition home or self-care (01) ==
LOC: PST 12:25
PROVIDERS: Family Provider Family Medicine; PCP Family Medicine; Visit Provider Obstetrics & Gynecology
DX: Z01.810 Encounter for preprocedural cardiovascular examination (principal); Z01.812 Encounter for preprocedural laboratory examination; R93.89 Abnormal findings on diagnostic imaging of other specified body structures; N95.1 Menopausal and female climacteric states
CPT/HCPCS: 85610; 85730; 93005

== ENCOUNTER 2024-02-10 06:07 | Day surgery (SDC) | payer OTHER, SELFPAY ==
[2024-01-27 13:13] VITALS: BP 150/88; PULSE 66; RESP 16; TEMP 36.3; O2SAT 98; BMI 26.6
[2024-02-10] VITALS (8 sets, daily range): BP systolic 131–174; BP diastolic 71–85; PULSE 57–81; RESP 14–20; TEMP 36.2–36.5; O2SAT 97–99; BMI 26.1
--- OUTSIDE RECORDS SUMMARY | 2024-02-10 06:10 | XMS_ITS | CCD ---
Author Organization [facility] Care Team Providers Care Time Recorder Name Role Phone Cahd Anderson Primary Care Provider [phone] CHONG LAYNE Referring Unavailable HEMEYER, CHAD Hoang Primary Care Unavailable HEMEYER, CHAD J Primary Care Unavailable CHONG LAYNE Referring Unavailable HEMEYER, AYAAN J Primary Care Unavailable CHONG LAYNE Referring Unavailable CHONG LAYNE Referring Unavailable HEMEYER, CHAD Hoang Primary Care Unavailable HEMEYER, CHAD J Primary Care Unavailable CHONG LAYNE Referring Unavailable HEMEYER, EDAYAAN J Primary Care Unavailable HEMEYER, EDWARD J Referring Unavailable CHONG LAYNE Referring Unavailable HEMEYER, CHAD Hoang Primary Care Unavailable CHONG LAYNE Admitting Unavailable CHONG LAYNE Attending Unavailable HEMEYER, CHAD Hoang Primary Care Unavailable CHONG LAYNE Referring Unavailable CHONG LAYNE Referring Unavailable HEMEYER, EDAYAAN Hoang Primary Care Unavailable HEMEYER, EDAYAAN Hoang Primary Care Unavailable GUARDADO, SAMI Referring Unavailable HEMEYER, CHAD J Primary Care Unavailable CHONG LAYNE Referring Unavailable HEMEYER, EDWARD J Primary Care Unavailable CHONG LAYNE Referring Unavailable HEMEYER, EDWARD J Primary Care Unavailable CHONG LAYNE Referring Unavailable HEMEYER, CHAD Hoang Primary Care Unavailable CHONG LAYNE Referring Unavailable HEMEYER, CHAD J Primary Care Unavailable CHONG LAYNE Referring Unavailable HEMEYER, EDAYAAN J Primary Care Unavailable CHONG LAYNE Referring Unavailable HEMEYER, EDAYAAN J Primary Care Unavailable CHONG LAYNE C Referring Unavailable CHONG LAYNE Referring Unavailable HEMEYER, CHAD J Primary Care Unavailable CHONG LAYNE C Referring Unavailable HEMEYER, EDAYAAN J Primary Care Unavailable HEMEYER, EDWARD J Primary Care Unavailable CHONG LAYNE Referring Unavailable HEMEYER, EDWARD J Primary Care Unavailable CHONG LAYNE Referring Unavailable CHAD ANDERSON Primary Care Unavailable CHONG LAYNE Referring Unavailable Chad Anderson Primary Care Provider [phone] Chad Anderson MD Primary Care Provider Chad Anderson MD Primary Care Provider SHENG VIDALES Attending Unavailable SHENG VIDALES Attending Unavailable Allergies Allergy Classification Reported Allergen(s) Allergy Type Date of Onset Reaction(s) Facility (20 sources) Amoxicillin Drug Allergy 6 Rash [facility] [employer] Work Phone: (20 sources) Meperidine Drug Allergy 6 Nausea And Vomiting [employer] Phone: (2 sources) [place] Oil Drug Allergy 4 [facility] (2 sources) Glycerin Drug Allergy 4 [facility] (2 sources) Meperidine Drug Allergy 4 Nausea Only [facility] (2 sources) WHEAT DEXTRIN Drug Allergy 4 [facility] Medications Current Medications Medication Drug Class(es) Dates [...] VERY IMPORTANT TO YOUR HEALTH. THE CURRENT [employer] GUIDELINES RECOMMENDS ANNUAL MAMMOGRAPHY BEGINNING AT AGE 40 THIS FACILITY USES A REMINDER SYSTEM TO ENSURE ALL PATIENTS RECEIVE REMINDER NOTIFICATIONS AT THE APPROPRIATE TIME BASED ON THE RECOMMENDATIONS OF THIS EXAM. Report reported and signed by Keyshawn Enciso on 07/07/2022 1404 Normal [facility] Representative XR Bone Density (DEXA)on XR Bone Density (DEXA) RegionBMDYoung-AdultA ge-Matched Total(g/cm2)(%)T-Scor e(%)Z-Score [id number]+ 1.1 Impression: The mean BMD and corresponding T-score indicated above indicate Normal Bone Mass and places the patient at no significant risk for fracture. This information can serve as a baseline with which to compare future studies. Recommend follow-up exam in 2 years, sooner as clinically necessary. RegionBMDYoung-AdultA ge-Matched Total(g/cm2)(%)T-Scor e(%)Z-Score L1-[id number]+1.6128+ 2.5 Impression: The mean BMD and corresponding [...] by Keyshawn Enciso on 07/05/2022 0822 Normal [facility] COVID-19on 11-30-2020 Source .NASOPHARYNGEAL SWAB [place] [id number] 11-30-2020 SARS-CoV-2 Normal [place], [place] Comment on above: Performed By: #### C OVID #### [facility] [employer] [address] [place] [address] Wringer Operator: Miguelangel Mora MD [facility] [address] [place] [address] [place] [address] Wringer Operator: Roger Carmen MD SARS-CoV-2 Not Detected Normal [place], [place] Comment on above: Result Comment: The specimen is NEGATIVE for SARS-CoV-2, the novel coronavirus associated with COVID-19. A negative result does not rule out COVID-19. Anil SARS-CoV-2 for use on the Anil [employer] is a real-time RT-PCR test intended [...] this assay. Fact sheet for Healthcare Providers: https://www.fda.gov/media/197131/download Fact sheet for Patients: https://www.fda.gov/media/396907/download METHODOLOGY: RT-PCR Performed By: #### C OVID #### [address] [id number] Wringer Operator: Miguelangel Mora MD [facility] [address] [place] [address] [place] [address] Wringer Operator: Roger Carmen MD The specimen is NEGATIVE for SARS-CoV-2, the novel coronavirus associated with COVID-19. A negative result does not rule out COVID-19. Anil SARS-CoV-2 for use on the Anil [employer] is a real-time RT-PCR test intended [...] this assay. Fact sheet for Healthcare Providers: https://www.fda.gov/media/198486/download Fact sheet for Patients: https://www.fda.gov/media/709117/download METHODOLOGY: RT-PCR SARS-CoV-2, Rapid Normal [place], [place] Comment on above: Performed By: #### C OVID #### [address] [id number] Wringer Operator: Miguelangel Mora MD [facility] [address] [place] [address] [place] [address] Wringer Operator: Roger Carmen MD [id number] 11-28-2020 SARS-CoV-2 Source .NASOPHARYNGEAL SWAB Normal [facility] Comment on above: Performed By: #### C OVID #### [address] [id number] Wringer Operator: Miguelangel Mora MD [facility] [address] [place] [address] [place] [address] Wringer Operator: Roger Carmen MD Basic Metabolic Panelon 12-1 Anion gap [Moles/Vol] 7 mmol/L Low 9 - 17 mmol/L [place] Bun/Cre Ratio 34 [place], [place] Calcium [Mass/Vol] 10.5 mg/dL High 8.6 - 10. 4 mg/dL [place] Chloride [Moles/Vol] 101 mmol/L 98 - 10 7 mmol/L [place] CO2 [Moles/Vol] 28 mmol/L 20 - 31 mmol/L [place] Creatinine [Mass/Vol] 0.64 mg/dL 0.5 - 0.9 mg/dL [place] GFR >60 >60 mL/min [place], [place] GFR Non- >60 >60 mL/min [place] Glucose [Mass/Vol] 106 mg/dL High 70 - 99 mg/dL [place], [place] Interpretation and review of laboratory results Abnormal [place] Potassium [Moles/Vol] 4.9 mmol/L 3.7 - 5.3 mmol/L [place] Sodium [Moles/Vol] 136 mmol/L 135 - 144 mmol/L [place] Urea nitrogen [Mass/Vol] 22 mg/dL High 6 - 20 mg/dL [place] Basic Metabolic Profon 11-06 Calcium [Mass/Vol] 10.5 mg/dL High 8.6-10.4 [facility] Comment on above: Performed By: #### C PASHA, BMP #### [facility] [address] [place] [address] Wringer Operator: Roger Carmen MD (cont.) [facility] Comment on above: Result Comment: Aver age GFR for 50-59 years old: 93 mL/min/1.73sq m Chronic Kidney Disease: <60 mL/min/1.73sq m Kidney failure: <15 mL/min/1.73sq m eGFR calculated using average adult body mass. Additional eGFR calculator available at: http://www.[employer].KlickEx/multiple_crcl_2011.htm Performed By: #### C DP, BMP #### [facility] [address] [place] [address] Wringer Operator: Roger Carmen MD Anion gap [Moles/Vol] 7 mmol/L Low 08-07 [facility] Comment on above: Performed By: #### C DP, BMP #### [facility] [address] [place] [address] Wringer Operator: Roger Carmen MD BUN/CRE Ratio 34 High - [facility] Comment on above: Performed By: #### C DP, BMP #### [facility] [address] [place], [place] [id number] Wringer Operator: Roger Carmen MD Chloride [Moles/Vol] 101 mmol/L Normal 98-107 [facility] Comment on above: Performed By: #### C DP, BMP #### [facility] [address] [place], [place] [id number] Wringer Operator: Roger Carmen MD CO2 [Moles/Vol] 28 mmol/L Normal 20-31 [facility] Comment on above: Performed By: #### C DP, BMP #### [facility] [address] [place], [place] [id number] Wringer Operator: Roger Carmen MD Creatinine [Mass/Vol] 0.64 mg/dL Normal 0.50-0.90 [facility] Comment on above: Performed By: #### C DP, BMP #### [facility] [address] [place], [place] [id number] Wringer Operator: Roger Carmen MD GFR, Amer >60 Normal >60 [facility] Comment on above: Performed By: #### C DP, BMP #### [facility] [address] [place], [place] [id number] Wringer Operator: Roger Carmen MD GFR,non Amer >60 Normal >60 [facility] Comment on above: Performed By: #### C DP, BMP #### [facility] [address] [place], [place] [phone] Wringer Operator: Roger Carmen MD Glucose [Mass/Vol] 106 mg/dL High 70-99 [facility] Comment on above: Performed By: #### C DP, BMP #### [facility] [address] [place], [place] [id number] Wringer Operator: Roger Carmen MD Potassium [Moles/Vol] 4.9 mmol/L Normal 3.7-5.3 [facility] Comment on above: Performed By: #### C DP, BMP #### [facility] [address] [place] [address] Wringer Operator: Roger Carmen MD Sodium [Moles/Vol] 136 mmol/L Normal 135-144 [facility] Comment on above: Performed By: #### C DP, BMP #### [facility] [address] [place] [address] Wringer Operator: Roger Carmen MD Staging: Normal [facility] Comment on above: Result Comment: Stag e 1: Some kidney damage normal GFR Stage 2: Mild kidney damage GFR 60-89 Stage 3: Moderate kidney damage GFR 30-59 Stage 4: Severe kidney damage GFR 15-29 Stage 5: Severe kidney damage GFR <15 ESRD - chronic treatment by dialysis or transplant Performed By: #### C DP, BMP #### [address] [place] [address] Wringer Operator: Roger Carmen MD Urea nitrogen [Mass/Vol] 22 mg/dL High 6-20 [facility] Comment on above: Performed By: #### C DP, BMP #### [address] [place] [address] Wringer Operator: Roger Carmen MD CBC Auto Differentialon 10-21 Basophils (Bld) [#/Vol] 0.06 10*3/uL [place] Basophils/100 WBC (Bld) 1 % 0 - 2 % [place] Differential Type NOT REPORTED [place] Eosinophils (Bld) [#/Vol] 0.11 10*3/uL [place] Eosinophils/100 WBC (Bld) 2 % 1 - 4 % [place] Erythrocyte distribution width (RBC) [Ratio] 12.5 % 11.8 - 14.4 % [place] Hematocrit (Bld) [Volume fraction] 43.1 % 36.3 - 47.1 % [place] Hemoglobin (Bld) [Mass/Vol] 14.1 g/dL 11.9 - 15.1 g/dL [place] Immature granulocytes (Bld) [#/Vol] 0 % 0 [place] Immature granulocytes (Bld) [#/Vol] 10*3/uL [place] Lymphocytes (Bld) [#/Vol] 2.87 10*3/uL [place] Lymphocytes/100 WBC (Bld) 40 % 24 - 43 % [place] MCH (RBC) [Entitic mass] 29.4 pg 25.2 - 33.5 pg [place] MCHC (RBC) [Mass/Vol] 32.7 g/dL 28.4 - 34.8 g/dL [place] MCV (RBC) [Entitic vol] 89.8 fL 82.6 - 102.9 fL [place] Monocytes (Bld) [#/Vol] 0.58 10*3/uL [place] Monocytes/100 WBC (Bld) 8 % 3 - 12 % [place] Platelet mean volume (Bld) [Entitic vol] 10.2 fL 8.1 - 13.5 fL [place], [place] Platelets (Bld) [#/Vol] 290 10*3/uL [place] Platelets (Bld) [#/Vol] NOT REPORTED [place] RBC (Bld) [#/Vol] 4.80 10*6/uL 3.95 - 5.1 1 m/uL [place] RBC morphology finding Nom (Bld) NOT REPORTED [place] Segmented neutrophils/100 WBC (Bld) 49 % 36 - 65 % [place] Segs Absolute 3.58 [place] WBC (Bld) [#/Vol] 0.0 10*3/uL 0.0 per 10 0 WBC [place] WBC (Bld) [#/Vol] 7.2 10*3/uL [place] WBC Morphology NOT REPORTED [place], [place] CBC with Diffon 11-06-2020 Abs. Basophil 0.06 k/uL Normal 0.00-0.20 [facility] Comment on above: Performed By: #### C DP, BMP #### [address] [place], [place] [id number] Wringer Operator: Roger Carmen MD Abs.Imm.Granulocyte <0.03 Normal 0.00-0.30 [facility] Comment on above: Performed By: #### C DP, BMP #### [address] [place] [address] Wringer Operator: Roger Carmen MD Abs.Neutrophil (Seg) 3.58 k/uL Normal 1.50-8.10 [facility] Comment on above: Performed By: #### C DP, BMP #### [address] [place] [id number] Wringer Operator: Roger Carmen MD Basophils/100 WBC (Bld) 1 % Normal 0-2 [facility] Comment on above: Performed By: #### C DP, BMP #### [address] [place], [place] [phone] Wringer Operator: Roger Carmen MD Eosinophils (Bld) [#/Vol] 0.11 10*3/uL Normal 0.00-0.44 [facility] Comment on above: Performed By: #### C DP, BMP #### [address] [place] [id number] Wringer Operator: Roger Carmen MD Eosinophils/100 WBC (Bld) 2 % Normal 1-4 [facility] Comment on above: Performed By: #### C DP, BMP #### [address] [place], [place] [id number] Wringer Operator: Roger Carmen MD Erythrocyte distribution width (RBC) [Ratio] 12.5 % Normal 11.8-14.4 [facility] Comment on above: Performed By: #### C DP, BMP #### [facility] [address] [place], [place] [address] Wringer Operator: Roger Carmen MD Hematocrit (Bld) [Volume fraction] 43.1 % Normal 36.3-47.1 [facility] Comment on above: Performed By: #### C DP, BMP #### [facility] [address] [place], [facility] Wringer Operator: Roger Carmen MD Hemoglobin (Bld) [Mass/Vol] 14.1 g/dL Normal 11.9-15.1 [facility] Comment on above: Performed By: #### C DP, BMP #### [address] [place], [place] [phone] Wringer Operator: Roger Carmen MD Immature granulocytes (Bld) [#/Vol] 0 % Normal 0 [facility] Comment on above: Performed By: #### C DP, BMP #### [address] [place], [facility] Wringer Operator: Roger Carmen MD Lymphocytes (Bld) [#/Vol] 2.87 10*3/uL Normal 1.10-3.70 [facility] Comment on above: Performed By: #### C DP, BMP #### [address] [place], [place] [address] Wringer Operator: Roger Carmen MD Lymphocytes/100 WBC (Bld) 40 % Normal 24-43 [facility] Comment on above: Performed By: #### C DP, BMP #### [address] [place] [id number] Wringer Operator: Roger Carmen MD MCH (RBC) [Entitic mass] 29.4 pg Normal 25.2-33.5 [facility] Comment on above: Performed By: #### C DP, BMP #### [facility] [address] [place] [address] Dr. [place], [place] [phone] Wringer Operator: Roger Carmen MD MCHC (RBC) [Mass/Vol] 32.7 g/dL Normal 28.4-34.8 [facility] Comment on above: Performed By: #### C DP, BMP #### [address] [place], [place] [phone] Wringer Operator: Roger Carmen MD MCV (RBC) [Entitic vol] 89.8 fL Normal 82.6-102.9 [facility] Comment on above: Performed By: #### C DP, BMP #### [address] [place], [place] [phone] Wringer Operator: Roger Carmen MD Monocytes (Bld) [#/Vol] 0.58 10*3/uL Normal 0.10-1.20 [facility] Comment on above: Performed By: #### C DP, BMP #### [address] [place], [place] 3389383 Wringer Operator: Roger Carmen MD Monocytes/100 WBC (Bld) 8 % Normal 3-12 [facility] Comment on above: Performed By: #### C DP, BMP #### [address] [place], [place] [phone] Wringer Operator: Roger Carmen MD Neutrophil (Seg) 49 % Normal 36-65 [facility] Comment on above: Performed By: #### C DP, BMP #### [facility] [address] [place] [address] Dr. [place], [place] 7383083 Wringer Operator: Roger Carmen MD NRBC Automated 0.0 per 100 WBC Normal 0.0 [facility] Comment on above: Performed By: #### C DP, BMP #### [facility] [address] [place] [address] Dr. [place], [place] [phone] Wringer Operator: Roger Carmen MD Platelet mean volume (Bld) [Entitic vol] 10.2 fL Normal 8.1-13.5 [facility] Comment on above: Performed By: #### C DP, BMP #### [address] [place], [place] [phone] Wringer Operator: Roger Carmen MD Platelets (Bld) [#/Vol] 290 10*3/uL Normal 138-453 [facility] Comment on above: Performed By: #### C DP, BMP #### [address] [place], [place] 6993283 Wringer Operator: Roger Carmen MD RBC (Bld) [#/Vol] 4.80 10*6/uL Normal 3.95-5.11 [facility] Comment on above: Performed By: #### C DP, BMP #### [address] [place], [facility]83 Wringer Operator: Roger Carmen MD WBC (Bld) [#/Vol] 7.2 10*3/uL Normal 3.5-11.3 [facility] Comment on above: Performed By: #### C DP, BMP #### [address] [place], [place] [phone] Wringer Operator: Roger Carmen MD Auto Diff Performed NOT REPORTED Normal [facility] Comment on above: Performed By: #### C DP, BMP #### [address] [place], [place] 856[address]83 Wringer Operator: Roger Carmen MD Platelets (Bld) [#/Vol] NOT REPORTED Normal [facility] Comment on above: Performed By: #### C DP, BMP #### [address] [place] [address] Wringer Operator: Roger Carmen MD RBC morphology finding Nom (Bld) NOT REPORTED Normal [facility] Comment on above: Performed By: #### C DP, BMP #### [facility] [address] [place], [place] [phone] Wringer Operator: Roger Carmen MD WBC Morphology NOT REPORTED Normal [facility] Comment on above: Performed By: #### C DP, BMP #### [facility] [address] [place], [place] [phone] Wringer Operator: Roger Carmen MD EKG 12 Leadon 11-06-2020 Atrial Rate 58 BPM [facility], [place] P [place] 56 degrees [facility], [place] P-R Interval 144 ms [facility], [place] Q-T Interval 408 ms [facility] QRS Duration 80 ms [facility] QTc Calculation (Bazett) 400 ms [facility], [place] R [place] -27 degrees [facility], [place] T [place] 24 degrees [facility], [place] Ventricular Rate 58 BPM [facility], [place] Sinus bradycardia Otherwise normal ECG When compared with ECG of 01-NOV-2017 11:08, No significant change was found Confirmed by YEN LAM ([id number]) on 11/06/2020 1:11:01 PM [place], [facility] Incoming Ekg Results From [facility] - 11/06/2020 1:11 PM EST Sinus bradycardia Otherwise normal ECG When compared with ECG of 01-NOV-2017 11:08, No significant change was found Confirmed by YEN LAM ([id number]) on 11/06/2020 1:11:01 PM [facility], [place] Metabolic Panelon 11-06-2020 GFR/1.73 sq M predicted among non-blacks MDRD (S/P/Bld) [Vol rate/Area] [place] Comment on above: Average GFR for 50-5 9 years old: 93 mL/min/1.73sq m Chronic Kidney Disease: <60 mL/min/1.73sq m Kidney failure: <15 mL/min/1.73sq m eGFR calculated using average adult body mass. Additional eGFR calculator available at: http://www.[employer].KlickEx/multiple_crcl_2012.htm Stage 1: Some kidney damage normal GFR [...] Livier Simon MD 11/03/20 11:17 EST Normal [facility] SYLVIA DIGITAL SCREEN W OR WO C [...] Frances Granados MD 01/16/20 Final result Normal [facility] No evidence of malignancy. Advise annual screening [...] screening mammogram in 1 year is advised. [place] EXAMINATION: BILATERAL DIGITAL SCREENING MAMMOGRAM, 01/16/2020 [...] distortion, or significant interval changes are noted. [place], [place] Shaw, tyler Incoming Radiant Results From [employer] - 01/16/2020 10:04 AM EST EXAMINATION: BILATERAL [...] screening mammogram in 1 year is advised. [place] Vital Signs Date Time Vital Sign Value Performing Clinician Facility 01-04-2024 13:43-0500 Body mass index (BMI) [Ratio] 28.13 kg/m2 Sheng Vidales [employer] Work Phone: [facility] 01-04-2024 13:43-0500 Body weight 69.76 kg Sheng Falsh DO Work Phone: [facility] 01-04-2024 13:43-0500 Diastolic blood pressure 84 mm[Hg] Sheng Flash DO Work Phone: [facility] 01-04-2024 13:43-0500 Systolic blood pressure 134 mm[Hg] Sheng Flash DO Work Phone: [facility] 12-05-2020 12:30-0500 BP Diastolic 66 mm[Hg] [facility] , [place] 12-05-2020 12:30-0500 BP Systolic 140 mm[Hg] [facility] , [place] 12-05-2020 12:30-0500 Pulse (Heart Rate) 66 /min [place], [place] 12-05-2020 12:30-0500 Pulse Oximetry 97 % [place], [place] 12-05-2020 12:30-0500 Respiratory Rate 16 /min [facility], [place] 12-05-2020 11:56-0500 Body Temperature 97.7 [degF] [facility], [place] 12-05-2020 09:18-0500 BMI (Body Mass Index) 24.8 kg/m2 [facility], [place] 12-05-2020 09:18-0500 Body weight 63.[address] [facility] , [place] 12-05-2020 09:18-0500 Height 160 cm [place], [place] Encounters Encounter Date Encounter Type Care Provider Facility Start: 01-18-2024 End: 01-18-2024 ambulatory SHENG FLASH Not Available Start: 01-04-2024 End: 01-04-2024 ambulatory SHENG FLASH Not Available Start: 01-04-2024 End: 01-04-2024 Office outpatient new 20 minutes Sheng Flash DO Work Phone: [facility] Comment on above: Postmenopausal bleed ing Start: 12-05-2020 End: 12-05-2020 Patient encounter procedure [facility] Start: 12-05-2020 End: 12-05-2020 Subsequent hospital visit by physician Chong Layne Work Phone: [facility] Comment on above: Right carpal tunnel syndrome (Primary Dx) Start: 11-28-2020 End: 12-03-2020 Patient encounter procedure [facility] Start: 11-28-2020 End: 12-02-2020 Subsequent hospital visit by physician Kalli Bacon19 Pat Screening Schedule [facility] PRE ADMIT Comment on above: Preoperative testing Start: 11-06-2020 End: 11-07-2020 Patient encounter procedure [facility] Start: 11-06-2020 End: 11-06-2020 Subsequent hospital visit by physician Chad CISSE EKG Start: 01-24-2020 End: 01-25-2020 Patient encounter procedure [facility] Start: 01-24-2020 End: 01-24-2020 Subsequent hospital visit by physician Manoj Singleton [facility] Physical Therapy Comment on above: Arrived Start: 01-22-2020 End: 01-23-2020 Patient encounter procedure [facility] Start: 01-22-2020 End: 01-22-2020 Subsequent hospital visit by physician Harrison Allan [facility] Physical Therapy Comment on above: Arrived Start: 01-21-2020 End: 01-22-2020 Patient encounter procedure AYAAN Hoang [facility] Start: 01-21-2020 End: 01-21-2020 Subsequent hospital visit by physician Harrison Allan [facility] Physical Therapy Comment on above: Arrived Start: 01-17-2020 End: 01-18-2020 Patient encounter procedure CHAD Hoang [facility] Start: 01-17-2020 End: 01-17-2020 Subsequent hospital visit by physician Harrison Allan [facility] Physical Therapy Comment on above: Arrived Start: 01-16-2020 End: 01-19-2020 Patient encounter procedure [facility] Start: 01-16-2020 End: 01-18-2020 Subsequent hospital visit by physician [facility]amm[facility] Mammography Comment on above: Breast cancer screen ing by mammogram Start: 01-15-2020 End: 01-16-2020 Patient encounter procedure CHAD Hoang [facility] Start: 01-15-2020 End: 01-15-2020 Subsequent hospital visit by physician Harrison Allan [facility] Comment on above: Arrived Start: 01-08-2020 End: 01-09-2020 Patient encounter procedure CHAD Hoang [facility] Start: 01-08-2020 End: 01-08-2020 Subsequent hospital visit by physician Harrison Allan [facility] Comment on above: Arrived Start: 01-07-2020 End: 01-08-2020 Patient encounter procedure CHAD Hoang [facility] Start: 01-07-2020 End: 01-07-2020 Subsequent hospital visit by physician Harrison Allan [facility] Comment on above: Arrived Start: 01-03-2020 End: 01-04-2020 Patient encounter procedure CHAD Hoang [facility] Start: 01-03-2020 End: 01-03-2020 Subsequent hospital visit by physician Harrison Allan [facility] Comment on above: Arrived Start: 01-01-2020 End: 01-02-2020 Patient encounter procedure CHAD Hoang [facility] Start: 01-01-2020 End: 01-01-2020 Subsequent hospital visit by physician Harrison Allan [facility] Comment on above: Arrived Start: 12-31-2019 End: 01-01-2020 Patient encounter procedure CHAD Hoang [facility] Start: 12-31-2019 End: 12-31-2019 Subsequent hospital visit by physician Manoj Singleton [facility] Comment on above: Arrived Start: 12-27-2019 End: 12-28-2019 Patient encounter procedure CHAD Hoang [facility] Start: 12-27-2019 End: 12-27-2019 Subsequent hospital visit by physician Harrison Allan [facility] Comment on above: Arrived Start: 12-25-2019 End: 12-26-2019 [facility] Start: 12-25-2019 End: 12-25-2019 Subsequent hospital visit by physician Harrison Allan [facility] Comment on above: Arrived Start: 12-24-2019 End: 12-25-2019 Patient encounter procedure CHAD ANDERSON [facility] Start: 12-24-2019 End: 12-24-2019 Subsequent hospital visit by physician Harrison Allan [facility] Comment on above: Arrived Start: 12-20-2019 End: 12-21-2019 Patient encounter procedure CHAD Hoang [facility] Start: 12-20-2019 End: 12-20-2019 Subsequent hospital visit by physician Harrison Allan [facility] Comment on above: Arrived Start: 12-18-2019 End: 12-19-2019 Patient encounter procedure CHAD Hoang [facility] Start: 12-18-2019 End: 12-18-2019 Subsequent [facility] Comment on above: Arrived Start: 12-13-2019 End: 12-14-2019 Patient encounter procedure CHONG Grady [facility] Start: 12-13-2019 End: 12-13-2019 Subsequent hospital visit by physician Harrison Allan [facility] Comment on above: Arrived Start: 12-11-2019 End: 12-12-2019 Patient encounter procedure CHONG Grady [facility] Start: 12-11-2019 End: 12-11-2019 Subsequent hospital visit by physician Manoj Singleton PT [facility] Comment on above: Arrived Procedures Date Procedure Procedure Detail Performing Clinician Start: 07-01-2022 Mammography Sheng Fazi o DO Work Phone: Start: 11-28-2020 COVID-19 Sami Jau regui Work Phone: Start: 11-06-2020 Ecg routine ecg w/le ast 12 lds w/i&r [place] Start: 11-06-2020 EKG REPORT CHONG BALDWIN FARHADSANGEETHA Start: 11-06-2020 Basic metabolic pane l calcium total [place]ONG [place] Start: 11-06-2020 Blood count complete auto&auto difrntl wbc [place]ONG [place] Start: 11-06-2020 Ecg routine ecg w/le ast 12 lds w/i&r Chong Grady [place] Work Phone: Start: 11-06-2020 EKG REPORT Hpf Scanni ng Start: 11-06-2020 Basic metabolic pane l calcium total Chong Lay[place] Work Phone: Start: 11-06-2020 Blood count complete auto&auto difrntl wbc Chong Layne Work Phone: Start: 01-16-2020 Screening mammograph y bi 2-view breast inc cad CHONG [place] Start: 01-16-2020 Screening digital br east tomosynthesis bi Chad Hoang Kurtjeb Other Phone: Plan of Treatment Date Care Activity Detail Author Start: 06-15-2027 Screening for malignant neoplasm of cervix [facility] Start: 01-18-2024 End: 01-18-2024 Patient encounter procedure 01/18/2024 2:40 PM EST Consult [facility] [address] [place] [id number] Sheng Vidales, DO [address] [place], [place] [id number] [facility] Start: 01-04-2024 End: 01-04-2025 US for US PELVIS-TRANSVAG IF INDICATED Imaging Routine Postmenopausal bleeding Expected: 01/04/2024 (Approximate), Expires: 01/04/2025 [facility] Work Phone: Comment on above: Expected: 01/04/2024 (Approximate), Expires: 01/04/2025 Start: 07-22-2023 Influenza vaccination Influenza Vacc ine (#1) [facility] Start: 07-01-2023 Screening for malignant neoplasm of breast Mammogram [facility] Start: 01-16-2022 Screening for malignant neoplasm of breast Breast cancer screen [place] Start: 12-05-2020 End: 12-05-2020 Hospital Encounter [facility] Comment on above: CARPAL TUNNEL RELEAS E ENDOSCOPIC Start: 2020 Screening for malignant neoplasm of colon Colon cancer screen colonoscopy [place], [place] Start: 2020 Shingles Vaccine (1 of 2) Shingles Vaccine (1 of 2) [facility] Work Phone: Start: 07-22-2020 Influenza vaccination Flu vaccine (# 1) [facility] [place], [place] Start: 01-25-2020 End: 01-25-2020 Appointment 01/25/2020 Appointment Physical Therapy Manoj Singleton PT [facility] Start: 01-24-2020 End: 01-24-2020 Appointment [...] 01-16-2020 End: 01-16-2020 Appointment 01/16/2020 Appointment Radiology [facility] Start: 01-15-2020 End: 01-15-2020 [facility]ment [facility] Start: 01-14-2020 End: 01-14-2020 Appointment 01/14/2020 Appointment Physical Therapy Manoj Singleton PT [facility] Start: 01-10-2020 End: 01-10-2020 Appointment [...] 12-31-2019 Appointment 12/31/2019 Appointment Physical Therapy Manoj Singleton PT [facility] Start: 12-27-2019 End: 12-27-2019 Appointment 12/27/2019 Appointment Physical Therapy Harrison Allan [facility] Start: 12-25-2019 End: 12-25-2019 Hospital Encounter [facility] Start: 12-24-2019 End: 12-24-2019 Patient encounter procedure 12/24/2019 Appointment Physical Therapy Harrison Allan [facility] Start: 12-20-2019 End: 12-20-2019 Patient encounter procedure 12/20/2019 Appointment Physical Therapy Harrison Allan [facility] Start: 12-18-2019 End: 12-18-2019 Patient encounter procedure 12/18/2019 Appointment Physical Therapy Harrison Allan [facility] Start: 12-13-2019 End: 12-13-2019 Patient encounter procedure 12/13/2019 Appointment Physical Therapy Harrison Allan [facility] Start: 07-22-2019 Influenza vaccination Flu vaccine (# 1) [facility] [employer] Phone: Start: 2010 Lipid panel Lipid screen [place], [place] Start: 2010 Lipid screen Lipid screen [facility] [employer] Phone: Start: 1991 Cervical cancer screen Cervical canc er screen [facility] [employer] Phone: Start: 1991 Screening for malignant neoplasm of cervix [facility] Start: 1989 DTaP/Tdap/Td vaccine (1 - Tdap) DTaP/Tdap/Td vaccine (1 - Tdap) [place], [place] Start: 1985 HIV screen HIV screen [facility] [employer] Phone: Start: 1985 HIV screening HIV screen [place], [place] Start: 1981 DTaP/Tdap/Td vaccine (1 - Tdap) DTaP/Tdap/Td vaccine (1 - Tdap) [facility] [employer] Phone: Start: 1970 Hepatitis C screening Hepatitis C sc reen [place], [place] Start: 1970 Screening for malignant neoplasm of colon [facility] Phase I & II - meter ed glucose Phase I & II - metered glucose Point of Care Testing Routine As Needed until discontinued starting 12/05/2020 [facility], [place] Comment on above: As Needed until disc ontinued starting 12/05/2020 Immunizations Immunization Date Immunization Notes Care Provider Ana coleman 11-20-2015 influenza virus vacc ine, unspecified formulation Sheng Vidales DO Work Phone: [facility] Healthcare Payers Date Payer Category Payer Unknown [employer] [id number] 2024-Present [address] [place] [address] [id number] 2024 Unknown [id number] 2019 Unknown [facility] [id number] xxxxxxxxxxx 2019-Present [address] [address] [place] [address] xxxxxxxxx [id number] 2019 Unknown xxxxxxxx [id number]. [id number] 2019 Unknown [id number] [id number]. [id number] 2019 Unknown [id number] 1970 Unknown [id number] 2.16.840.1.125519.3.579.2.17 3 1970 Unknown [id number] 2.16.840.1.859730.3.579.2.17 3 1970 Unknown [id number] 2.16.840.1.685884.3.579.2.17 3 1970 Unknown [id number] 2.16.840.1.114356.3.579.2.17 3 1970 Unknown [id number] 2.16.840.1.548210.3.579.2.17 3 1970 Unknown [id number] 2.16.840.1.954520.3.579.2.17 3 1970 Unknown [id number] 2.16.840.1.206622.3.579.2.17 3 1970 Unknown [id number] 2.16.840.1.061961.3.579.2.17 3 1970 Unknown [id number] 2.16.840.1.686332.3.579.2.17 3 1970 Unknown [id number] 2.16.840.1.394062.3.579.2.17 3 1970 Unknown [id number] 2.16.840.1.067612.3.579.2.17 3 1970 Unknown [id number] 2.16.840.1.062079.3.579.2.17 3 1970 Unknown [id number] 2.16.840.1.761304.3.579.2.17 3 1970 Unknown [id number] 2.16.840.1.554267.3.579.2.17 3 1970 Unknown [id number] 2.16.840.1.968793.3.579.2.17 3 1970 Unknown [id number] 2.16.840.1.197886.3.579.2.17 3 1970 Unknown [id number] 2.16.840.1.513955.3.579.2.17 3 1970 Unknown [id number] 2.16.840.1.624885.3.579.2.17 3 1970 Unknown [id number] 2.16.840.1.502312.3.579.2.17 3 1970 Unknown [id number] 2.16.840.1.097208.3.579.2.17 3 1970 Unknown [id number] 2.16.840.1.558538.3.579.2.17 3 1970 Unknown [id number] 2.16.840.1.681084.3.579.2.17 3 1970 Unknown [id number] 2.16.840.1.816642.3.579.2.12 59 1970 Unknown [id number] 2.16.840.1.682230.3.579.2.12 59 Social History Date Type Detail Facility Start: 11-15-2017 End: 11-27-2020 Tobacco smoking status PRIS Former smoker [employer] Phone: End: 02-19-2006 History of tobacco use Current smoker [employer] Phone: End: 02-19-2006 History of tobacco use Cigarette Smoker [employer] Phone: Start: 11-15-2017 End: 11-27-2020 Alcohol intake Current non-drinker of alcohol (finding) [employer] Phone: Sex Assigned At Not on file [employer] Phone: Start: 11-15-2017 End: 11-27-2020 Tobacco use and exposure Never used [employer] Exposure to SARS-CoV -2 (event) Not sure [employer] Start: 12-08-2023 Tobacco smoking stat [facility] Never smoked tobacco [facility] Start: 01-04-2024 [...] of Present illness Narrative 01-04-2024 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 Exam conducted with a inspector machine cut glass present. Vitals: Estimated body mass index is [...] Facility 12-20-2019 History of Present illness Narrative [facility] Daily Note Patient: Jacek Larose : 1970 CSN #: [id number] Referring Practitioner: Chong Wright MD Referral Date : 12/05/19 Date: 12/20/2019 Diagnosis: Incomplete tear of L rotator cuff, M75.112, Bursitis of L shoulder, M75.52 Treatment Diagnosis: L SLAP tear, incomplete rotator cuff tear Onset Date: 09/25/19 PT Insurance Information: [employer] Total # of Visits Approved: 18 Per [...] (parameters): IFC for pain Assessment Assessment: Pt states shld [...] []Not met []Met []Partially met []Not met [employer] 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 []Met []Partially met []Not met []Met []Partially met []Not met Minutes Tracking: Time In: 08 Time Out: 919 Minutes: 70 Timed Code Treatment Minutes: 62 Minutes Harrison Allan 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 Date: 12/20/2019 documented in this encounter [employer] Work Phone: History of Present illness Narrative 12-13-2019 Harrison Allan - 12/13/2019 8:15 AM EST Note Date & Type Note Facility 12-13-2019 History of Present illness Narrative [facility] Daily Note Patient: Jacek Larose : 1970 CSN #: [id number] Referring Practitioner: Chong Wright MD Referral Date : 12/05/19 Date: 12/13/2019 Diagnosis: Incomplete tear of L rotator cuff, M75.112, Bursitis of L shoulder, M75.52 Treatment Diagnosis: L SLAP tear, incomplete rotator cuff tear Onset Date: 09/25/19 PT Insurance Information: [employer] Total # of Visits Approved: 18 Per [...] (parameters): IF for pain Assessment Assessment: Pt with complaints [...] []Not met []Met []Partially met []Not met Mcfp 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 []Met []Partially met []Not met []Met []Partially met []Not met Minutes Tracking: Time In: 814 Time Out: 914 Minutes: 60 Timed Code Treatment Minutes: 54 Minutes Harrison Allan 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 Date: 12/13/2019 documented in this encounter [facility] Work Phone: History of Present illness Narrative 12-11-2019 Manoj Singleton, PT - 12/11/2019 8:45 AM EST Note Date & Type Note Facility 12-11-2019 History of Present illness Narrative [facility] Evaluation Date: 12/11/2019 Patient: Jacek Larose : 1970 CSN #: [id number] Referring Practitioner: Chong Wright MD Referral Date : 12/05/19 Diagnosis: Incomplete tear of L rotator cuff, M75.112, Bursitis of L shoulder, M75.52 Treatment Diagnosis: L SLAP tear, incomplete rotator cuff tear Onset Date: 09/25/19 PT Insurance Information: [employer] Total # of Visits Approved: 18 Total [...] L shoulder flexion to >135* for ADLs long-term goals Time Frame for long-term goals : 6 weeks 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 Patient goals : Be able to return to pull-ups, push-ups, and crossfit activities Minutes Tracking: Time In: 844 Time Out: 937 Minutes: 53 Total minutes: 51 Manoj Singleton PT, DPT 12/11/2019 documented in this encounter [employer] Phone: Evaluation note Note Date & Type Note Facility Evaluation note Diagnosis Postmenopausal bleeding documented in this encounter [facility] History of Present Illness * Harrison Allan - 12/24/2019 8:30 AM EST [facility] Daily Note Patient: Jacek Larose : 1970 CSN #: [id number] Referring Practitioner: Chong Wright MD Referral Date : 12/05/19 Date: 12/24/2019 Diagnosis: Incomplete tear of L rotator cuff, M75.112, Bursitis of L shoulder, M75.52 Treatment Diagnosis: L SLAP tear, incomplete rotator cuff tear Onset Date: 09/25/19 PT Insurance Information: [employer] Total # of Visits Approved: 18 Per [...] []Not met []Met []Partially met []Not met Mcfp 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 Allan 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 Date: 12/24/2019 documented in this encounter* Harrison Allan - 12/27/2019 8:15 AM EST [facility] Daily Note Patient: Jacek Larose : 1970 CSN #: [id number] Referring Practitioner: Chong Wright MD Referral Date : 12/05/19 Date: 12/27/2019 Diagnosis: Incomplete tear of L rotator cuff, M75.112, Bursitis of L shoulder, M75.52 Treatment Diagnosis: L SLAP tear, incomplete rotator cuff tear Onset Date: 09/25/19 PT Insurance Information: [employer] Total # of Visits Approved: 18 Per Physician Order Total # of Visits to Date: 7 No Show: 0 Canceled Appointment: 0 Pre-Treatment Pain: 01/28 Subjective: No new complaints. 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 []Met []Partially met []Not met []Met []Partially met []Not met Minutes Tracking: Time In: 814 Time Out: 0930 Minutes: 75 Timed Code Treatment Minutes: 70 Minutes Harrison Allan 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 Date: 12/27/2019 documented in this encounter* Manoj Singleton, PT - 12/31/2019 10:30 AM EST [facility] Daily Note Patient: Jacek Larose : 1970 CSN #: [id number] Referring Practitioner: Chong Wright MD Referral Date : 12/05/19 Date: 12/31/2019 Diagnosis: Incomplete tear of L rotator cuff, M75.112, Bursitis of L shoulder, M75.52 Treatment Diagnosis: L SLAP tear, incomplete rotator cuff tear Onset Date: 09/25/19 PT Insurance Information: [employer] Total # of Visits Approved: 18 Per [...] []Not met []Met []Partially met []Not met 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 Goals - Time Frame for long-term goals : 6 weeks long-term goal 1: Patient will be independent and compliant with a HEP []Met []Partially met []Not met 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 2: Patient will improve L shoulder AROM to match right for ADLs - PROGRESSING []Met [x]Partially met []Not met 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 3: Patient will improve L shoulder strength to >/=4/5 in all major joints and planes -PROGRESSING []Met [x]Partially met []Not met 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 4: Patient will report decreased pain to <5/10 at worst - PROGRESSING []Met [x]Partially met []Not met []Met []Partially met []Not met Minutes Tracking: Time In: 1030 Time Out: 1133 Minutes: 63 Total time: 61 minutes Manoj Singleton PT, DPT Date: 12/31/2019 documented in this encounter* Harrison Allan - 01/01/2020 8:15 AM EST [facility] Daily Note Patient: Jacek Larose : 1970 CSN #: [id number] Referring Practitioner: Chong Layne MD Referral Date : 12/05/19 Date: 01/01/2020 Diagnosis: Incomplete tear of L rotator cuff, M75.112, Bursitis of L shoulder, M75.52 Treatment Diagnosis: L SLAP tear, incomplete rotator cuff tear Onset Date: 09/25/19 PT Insurance Information: [employer] Total # of Visits Approved: 18 Per [...] []Not met []Met []Partially met []Not met Pipe Tester Goals - Time Frame for long-term goals : 6 weeks long-term goal 1: Patient will be independent and compliant with a HEP []Met []Partially met []Not met long-term goal 2: Patient will improve L shoulder AROM to match right for ADLs - PROGRESSING []Met []Partially met []Not met 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 3: Patient will improve L shoulder strength to >/=4/5 in all major joints and planes -PROGRESSING []Met []Partially met []Not met 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 4: Patient will report decreased pain to <5/10 at worst - PROGRESSING []Met []Partially met []Not met []Met []Partially met []Not met Minutes Tracking: Time In: 812 Time Out: 829 Minutes: 17 Timed Code Treatment Minutes: 68 Minutes Harrison Allan 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 Date: 01/01/2020 documented in this encounter* Harrison Allan - 01/03/2020 8:15 AM EST [facility] Daily Note Patient: Jacek Larose : 1970 CSN #: [id number] Referring Practitioner: Chogn Layne MD Referral Date : 12/05/19 Date: 01/03/2020 Diagnosis: Incomplete tear of L rotator cuff, M75.112, Bursitis of L shoulder, M75.52 Treatment Diagnosis: L SLAP tear, incomplete rotator cuff tear Onset Date: 09/25/19 PT Insurance Information: [employer] Total # of Visits Approved: 18 Per [...] []Not met []Met []Partially met []Not met Mcfp Goals - 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 : 6 weeks long-term goal 1: Patient will be independent and compliant with a HEP []Met []Partially met []Not met 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 2: Patient will improve L shoulder AROM to match right for ADLs - PROGRESSING []Met []Partially met []Not met 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 3: Patient will improve L shoulder strength to >/=4/5 in all major joints and planes -PROGRESSING []Met []Partially met []Not met long-term goal 4: Patient will report decreased pain to <5/10 at worst - PROGRESSING []Met []Partially met []Not met []Met []Partially met []Not met Minutes Tracking: Time In: 812 Time Out: 921 Minutes: 69 Timed Code Treatment Minutes: 65 Minutes Harrison Allan 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 Date: 01/03/2020 documented in this encounter* Harrison Allan - 01/07/2020 8:30 AM EST [facility] Daily Note Patient: Jacek Larose : 1970 CSN #: [id number] Referring Practitioner: Chong Layne MD Referral Date : 12/05/19 Date: 01/07/2020 Diagnosis: Incomplete tear of L rotator cuff, M75.112, Bursitis of L shoulder, M75.52 Treatment Diagnosis: L SLAP tear, incomplete rotator cuff tear Onset Date: 09/25/19 PT Insurance Information: [employer] Total # of Visits Approved: 18 Per [...] []Not met []Met []Partially met []Not met Mcfp Goals - 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 : 6 weeks 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 1: Patient will be independent and compliant with a HEP []Met []Partially met []Not met 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 2: Patient will improve L shoulder AROM to match right for ADLs - PROGRESSING []Met []Partially met []Not met long-term goal 3: Patient will improve L shoulder strength to >/=4/5 in all major joints and planes -PROGRESSING []Met []Partially met []Not met 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 4: Patient will report decreased pain to <5/10 at worst - PROGRESSING []Met []Partially met []Not met []Met []Partially met []Not met Minutes Tracking: Time In: 834 Time Out: 947 Minutes: 73 Timed Code Treatment Minutes: 70 Minutes Harrison Allan 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 Date: 01/07/2020 documented in this encounter* Harrison Allan - 01/08/2020 8:15 AM EST [facility] Daily Note Patient: Jacek Larose : 1970 CSN #: [id number] Referring Practitioner: Chong Layne MD Referral Date : 12/05/19 Date: 01/08/2020 Diagnosis: Incomplete tear of L rotator cuff, M75.112, Bursitis of L shoulder, M75.52 Treatment Diagnosis: L SLAP tear, incomplete rotator cuff tear Onset Date: 09/25/19 PT Insurance Information: [employer] Total # of Visits Approved: 18 Per [...] has increased thru modified exercise. 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 2: Patient will improve L shoulder AROM to match right for ADLs - PROGRESSING []Met []Partially met []Not met 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 3: Patient will improve L shoulder strength to >/=4/5 in all major joints and planes -PROGRESSING []Met []Partially met []Not met long-term goal 4: Patient will report decreased pain to <5/10 at worst - PROGRESSING []Met []Partially met []Not met []Met []Partially met []Not met Minutes Tracking: Time In: 814 Time Out: 929 Minutes: 75 Timed Code Treatment Minutes: 70 Minutes Harrison Allan 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 Date: 01/08/2020 documented in this encounter* Harrison Allan - 01/15/2020 8:15 AM EST [facility] Daily Note Patient: Jacek Larose : 1970 CSN #: [id number] Referring Practitioner: Chong Layne MD Referral Date : 12/05/19 Date: 01/15/2020 Diagnosis: Incomplete tear of L rotator cuff, M75.112, Bursitis of L shoulder, M75.52 Treatment Diagnosis: L SLAP tear, incomplete rotator cuff tear Onset Date: 09/25/19 PT Insurance Information: [employer] Total # of Visits Approved: 18 Per [...] limited> 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 : 6 weeks long-term goal 1: Patient will be independent and compliant with a HEP []Met []Partially met []Not met long-term goal 2: Patient will improve L shoulder AROM to match right for ADLs - PROGRESSING []Met []Partially met []Not met long-term goal 3: Patient will improve L shoulder strength to >/=4/5 in all major joints and planes -PROGRESSING []Met []Partially met []Not met long-term goal 4: Patient will report decreased pain to <5/10 at worst - PROGRESSING []Met []Partially met []Not met []Met []Partially met []Not met Minutes Tracking: Time In: 814 Time Out: 930 Minutes: 76 Timed Code Treatment Minutes: 70 Minutes Harrison Allan 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 Date: 01/15/2020 documented in this encounter* Harrison Allan - 01/17/2020 8:15 AM EST [facility] Daily Note Patient: Jacek Larose : 1970 CSN #: [id number] Referring Practitioner: Chong Layne MD Referral Date : 12/05/19 Date: 01/17/2020 Diagnosis: Incomplete tear of L rotator cuff, M75.112, Bursitis of L shoulder, M75.52 Treatment Diagnosis: L SLAP tear, incomplete rotator cuff tear Onset Date: 09/25/19 PT Insurance Information: [employer] Total # of Visits Approved: 18 Per [...] pt required further clarification. 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 1: Patient will be independent and compliant with a HEP []Met []Partially met []Not met 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 2: Patient will improve L shoulder AROM to match right for ADLs - PROGRESSING []Met []Partially met []Not met 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 3: Patient will improve L shoulder strength to >/=4/5 in all major joints and planes -PROGRESSING []Met []Partially met []Not met long-term goal 4: Patient will report decreased pain to <5/10 at worst - PROGRESSING []Met []Partially met []Not met []Met []Partially met []Not met Minutes Tracking: Time In: 814 Time Out: 934 Minutes: 80 Timed Code Treatment Minutes: 76 Minutes Harrison Allan 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 Date: 01/17/2020 documented in this encounter* Missygume Harrison Castillo - 01/21/2020 8:30 AM EST [facility] Daily Note Patient: Jacek Larose : 1970 CSN #: [id number] Referring Practitioner: Chong Layne MD Referral Date : 12/05/19 Date: 01/21/2020 Diagnosis: Incomplete tear of L rotator cuff, M75.112, Bursitis of L shoulder, M75.52 Treatment Diagnosis: L SLAP tear, incomplete rotator cuff tear Onset Date: 09/25/19 PT Insurance Information: [employer] Total # of Visits Approved: 18 Per [...] []Not met []Met []Partially met []Not met Mcfp Goals - 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 : 6 weeks long-term goal 1: Patient will be independent and compliant with a HEP []Met []Partially met []Not met 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 2: Patient will improve L shoulder AROM to match right for ADLs - PROGRESSING []Met []Partially met []Not met 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 3: Patient will improve L shoulder strength to >/=4/5 in all major joints and planes -PROGRESSING []Met []Partially met []Not met long-term goal 4: Patient will report decreased pain to <5/10 at worst - PROGRESSING []Met []Partially met []Not met []Met []Partially met []Not met Minutes Tracking: Time In: 0830 Time Out: 0930 Minutes: 60 Harrison Allan 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 Date: 01/21/2020 documented in this encounter* Harrison Allan - 01/22/2020 8:15 AM EST [facility] Daily Note Patient: Jacek Larose : 1970 CSN #: [id number] Referring Practitioner: Chong Layne MD Referral Date : 12/05/19 Date: 01/22/2020 Diagnosis: Incomplete tear of L rotator cuff, M75.112, Bursitis of L shoulder, M75.52 Treatment Diagnosis: L SLAP tear, incomplete rotator cuff tear Onset Date: 09/25/19 PT Insurance Information: [employer] Total # of Visits Approved: 18 Per [...] 15x Exercise 17: Lat pulldowns 8 pl [id number], 6pl waist Exercise 18: SL abduction and [...] []Not met []Met []Partially met []Not met Mcfp Goals - 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 : 6 weeks long-term goal 1: Patient will be independent and compliant with a HEP []Met []Partially met []Not met long-term goal 2: Patient will improve L shoulder AROM to match right for ADLs - PROGRESSING []Met []Partially met []Not met 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 3: Patient will improve L shoulder strength to >/=4/5 in all major joints and planes -PROGRESSING []Met []Partially met []Not met 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 4: Patient will report decreased pain to <5/10 at worst - PROGRESSING []Met []Partially met []Not met []Met []Partially met []Not met Minutes Tracking: Time In: 814 Time Out: 914 Minutes: 60 Timed Code Treatment Minutes: 57 Minutes Harrison Allan 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 Date: 01/22/2020 documented in this encounter* Manoj Singleton, PT - 01/24/2020 8:30 AM EST [facility] Daily Note Patient: Jacek Larose : 1970 CSN #: [id number] Referring Practitioner: Chong Layne MD Referral Date : 12/05/19 Date: 01/24/2020 Diagnosis: Incomplete tear of L rotator cuff, M75.112, Bursitis of L shoulder, M75.52 Treatment Diagnosis: L SLAP tear, incomplete rotator cuff tear Onset Date: 09/25/19 PT Insurance Information: [employer] Total # of Visits Approved: 18 Per [...] 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 Call [phone] forurgent questions after 5PM until 8AM 10. [...] WO CAD BILATERAL Chad Anderson MD [address] [place] [address] Fax: Additional Source Comments INFORMATION SOURCE (unrecogn ized section and content) DATE CREATED AUTHOR 11/05/2020 [facility] DATE CREATED AUTHOR AUTHOR'S ORGANIZ ATION 12/05/2020 [facility] DATE CREATED AUTHOR AUTHOR'S ORGANIZ ATION 07/14/2022 [facility]ical Specialist DATE CREATED AUTHOR AUTHOR'S ORGANIZ ATION 01/21/2024 [facility] dical Specialists EPIC Reason for Visit (unrecogniz ed section and content) Status Reason Specialty Diagnoses / Procedures Referre d By Contact Referred To Contact Diagnoses Carpal tunnel syndrome on right RIGHT CARPAL TUNNEL SYNDROME Procedures MA WRIST ARTHROSCOP,RELEASE XVERS LIG CARPAL TUNNEL RELEASE ENDOSCOPIC Chong Layne MD [address] [place] [address] [facility] Status Reason Specialty Diagnoses / Procedures Referre d By Contact Referred To Contact [facility] Diagnoses Encounter for screening mammogram for malignant neoplasm of breast Procedures HC MAMMO SCREENING INCL CAD IF PERF HC MAMMOGRAM DIGITAL SCREEN BILAT Chad Anderson MD [address] [place] [address] Fax: [facility] [address] [place] [id number] Reason Comments postmenopausal bleeding Ordered Prescriptions (unrec [...] Care Teams (unrecognized sec tion and content) Time Recorder Relationship Specialty Start Date End Date Chad Anderson MD [address] [place] [address] (work) PCP - General Family Medicine 03/29/23 FOR [...] BE BASED ON THE PRIMARY CLINICAL RECORDS. [facility]. provides no warranty or guarantee of the accuracy or completeness of information in this document.
[2024-02-10 06:16] LABS: Basophils Absolute Auto 0.1 10^3/uL (0.0-0.1); Basophils Percent Auto 0.8 % (0.2-2.0); Eosinophils Absolute Auto 0.2 10^3/uL (0.0-0.7); Eosinophils Percent Auto 2.6 % (0.9-7.0); Hematocrit 41.1 % (36.0-48.0); Hemoglobin 13.5 g/dL (12.0-16.0); Immature Granulocytes Abs Auto 0.01 10^3/uL (0.00-0.03); Immature Granulocytes Pct Auto 0.1 % (0.0-0.5); Lymphocytes Absolute Auto 3.2 10^3/uL (1.2-3.8); Lymphocytes Percent Auto 40.1 % (20.5-60.0); Mean Corpuscular HGB Conc 32.8 g/dL (29.9-35.2); Mean Corpuscular Hemoglobin 29.3 pg (26.7-34.0); Mean Corpuscular Volume 89.3 fL (81.0-99.0); Mean Platelet Volume 9.8 fL (9.5-13.5); Monocytes Absolute Auto 0.7 10^3/uL (0.3-0.8); Monocytes Percent Auto 8.2 % (1.7-12.0); Neutrophils Absolute Auto 3.8 10^3/uL (1.4-6.5); Neutrophils Percent Auto 48.2 % (43.0-75.0); Platelet Count 308 10^3/uL (150-450); Red Cell Distribution Width 11.6 % (11.0-15.0); White Blood Count 7.9 10^3/uL (4.0-11.0)
[2024-02-10 06:35] LABS: HCG Quantitative <1 mIU/mL
[2024-02-10] MEDS: LACTATED RINGER'S SOLUTION 1,000 ML 50 ML IV (07:07)
[2024-02-10] MEDS: SCOPOLAMINE 1 MG/3 DAYS TRANSDERM PATCH 1 PATCH TD (07:21)
--- NOTE | 2024-02-10 09:21 | P.ON_ITS ---
Brief Operative Note Date of procedure: 02/10/24 Pre-op diagnosis: thickend endometrium Post-op diagnosis: same as pre-op Procedure: NAME OF PROCEDURE: [ D&c hysteroscopy with myosure] PROCEDURE: The patient was taken back to the Operating Room where she was prepped and draped in normal sterile fashion after being placed under general anesthesia without difficulty. She was also placed in the dorsal lithotomy position. A we ighted speculum was placed in the patient?s vagina. The anterior lip of the cervix was identified and grasped with a single tooth tenaculum. The patient?s uterus was then sounded roughly to [? 8] cm. The patient was then gently dilated using Hegar dilators. The hysteroscope was passed through the patient?s cervix into the uterus. Both ostia were identified. fluffy appearing endometrium. No gross evidence of malignancy, no gross evidence of polyps or fibroids. The myosure apparatus was placed through the scope, The myosure was engaged and endometrial curretting were removed along with endometrial polyp, The hysteroscope was then removed from the uterus. The endometrial curettings were sent out to pathology. The single tooth tenaculum was then removed from the patient's anterior lip of the cervix where excellent hemostasis was noted. All instruments were removed from the patient?s vagina. The patient tolerated the procedure well. Sponge, lap and needle counts were correct times two. The patient was taken to the Recovery Room in stable condition.Room in stable condition. Anesthesia: DAINA Surgeon: Sean Vidales Estimated blood loss (mL): 5 Pathology: other (endometrial currettings) Condition: stable Disposition: PACU
--- NOTE | 2024-02-10 09:46 | PC.NURSE ---
Peripad noted to have scant amount red drainage; clean peripad applied; no clots noted
[2024-02-10] MEDS: LACTATED RINGER'S SOLUTION 1,000 ML 100 ML IV (10:01)
--- NOTE | 2024-02-10 10:08 | PC.NURSE ---
Peripad has scant amount red drainage
== END 2024-02-10 10:40 | disposition home or self-care (01) ==
PROVIDERS: Family Provider Family Medicine; PCP Family Medicine; Visit Provider Obstetrics & Gynecology
PROC: (CPT 952; principal; 2024-02-10 07:30)
DX: R93.89 Abnormal findings on diagnostic imaging of other specified body structures (principal); N95.1 Menopausal and female climacteric states; I10 Essential (primary) hypertension; J30.2 Other seasonal allergic rhinitis; Z87.891 Personal history of nicotine dependence
CPT/HCPCS: 58558; 36415; 84702; 85025; 88305; 99999; J1094; J2704

== ENCOUNTER 2024-03-26 20:28 | Outpatient (REF) | payer OTHER, SELFPAY ==
--- OUTSIDE RECORDS SUMMARY | 2024-03-26 20:38 | XMS_ITS | CCD ---
Author Organization [facility] Care Team Providers Care [employer] Customs And Border Officer Name Role Phone Chad Anderson Primary Care Provider [phone] CHONG LAYNE Referring Unavailable HEMEYER, CHAD Hoang [...] Primary Care Unavailable CHONG LAYNE Referring Unavailable HCONG LAYNE Referring Unavailable HEMEYER, EDAYAAN Hoang Primary [...] Referring Unavailable Chad Anderson Primary Care Provider [phone] Chad Anderson MD Primary Care Provider Chad Anderson MD Primary Care Provider SHENG VIDALES Attending Unavailable SHENG VIDALES Attending Unavailable Allergies Allergy Classification Reported Allergen(s) Allergy Type Date of Onset Reaction(s) Facility (20 sources) Amoxicillin Drug Allergy 6 Rash [facility] 3seventy Work Phone: (20 sources) Meperidine Drug Allergy 6 Nausea And Vomiting [employer] Phone: (2 sources) Paoli Oil Drug Allergy 4 [facility] (2 sources) Glycerin Drug Allergy 4 [facility] (2 sources) Meperidine Drug Allergy 4 Nausea Only [facility] (2 sources) WHEAT DEXTRIN Drug Allergy 4 [facility] Medications Current Medications Medication Drug Class(es) [...] VERY IMPORTANT TO YOUR HEALTH. THE CURRENT [place] [employer]PREHENS[employer] GUIDELINES RECOMMENDS ANNUAL MAMMOGRAPHY BEGINNING AT AGE 40 THIS FACILITY USES A REMINDER SYSTEM TO ENSURE ALL PATIENTS RECEIVE REMINDER NOTIFICATIONS AT THE APPROPRIATE TIME BASED ON THE RECOMMENDATIONS OF THIS EXAM. Report reported and signed by Keyshawn Enciso on 07/07/2022 1404 Normal [facility] Speech/Language Therapist XR Bone Density (DEXA)on XR Bone Density (DEXA) RegionBMDYoung-AdultA ge-Matched Total(g/cm2)(%)T-Scor e(%)Z-Score Femurs.[id number]+0.2116+ 1.1 Impression: The mean BMD and corresponding T-score indicated above indicate Normal Bone Mass and places the patient at no significant risk for fracture. This information can serve as a baseline with which to compare future studies. Recommend follow-up exam in 2 years, sooner as clinically necessary. RegionBMDYoung-AdultA ge-Matched Total(g/cm2)(%)T-Scor e(%)Z-Score L1-[id number]+1.6128+ 2.5 Impression: The mean BMD and corresponding [...] by Keyshawn Enciso on 07/05/2022 0822 Normal [facility] Speech/Language Therapist COVID-19on 11-30-2020 Source .NASOPHARYNGEAL SWAB [place] [id number] 11-30-2020 SARS-CoV-2 Normal [place] Comment on above: Performed By: #### C OVID #### [facility] [employer] [address] [place] [address] Rn Primary Care: Miguelangel Mora MD [facility] [address] [place] [address] [place] [address] Rn Primary Care: Roger Carmen MD SARS-CoV-2 Not Detected Normal [place], [place] Comment on above: Result Comment: The specimen is NEGATIVE for SARS-CoV-2, the novel coronavirus associated with COVID-19. A negative result does not rule out COVID-19. Anil SARS-CoV-2 for use on the Anil [employer] is a real-time RT-PCR test intended [...] this assay. Fact sheet for Healthcare Providers: https://www.fda.gov/media/737436/download Fact sheet for Patients: https://www.fda.gov/media/426096/download METHODOLOGY: RT-PCR Performed By: #### C OVID #### [address] [id number] Rn Primary Care: Miguelangel Mora MD [facility] [address] [place] [address] [place] [address] Rn Primary Care: Roger Carmen MD The specimen is NEGATIVE for SARS-CoV-2, the novel coronavirus associated with COVID-19. A negative result does not rule out COVID-19. Anil SARS-CoV-2 for use on the [employer] is a real-time RT-PCR test intended [...] this assay. Fact sheet for Healthcare Providers: https://www.fda.gov/media/230230/download Fact sheet for Patients: https://www.fda.gov/media/287555/download METHODOLOGY: RT-PCR SARS-CoV-2, Rapid [place] Comment on above: Performed By: #### C OVID #### [address] [id number] Rn Primary Care: Miguelangel Mora MD [facility] [address] [place] [address] [place] [address] Rn Primary Care: Roger Carmen MD [id number] 11-28-2020 SARS-CoV-2 Source .NASOPHARYNGEAL SWAB Normal [facility] Comment on above: Performed By: #### C OVID #### [address] [id number] Rn Primary Care: Miguelangel Mora MD [facility] [address] [place] [address] [place] [address] Rn Primary Care: Roger Carmen MD Basic Metabolic Panelon 12-1 Anion gap [Moles/Vol] 7 mmol/L Low 9 - 17 mmol/L [place] Bun/Cre Ratio 34 [place] Calcium [Mass/Vol] 10.5 mg/dL High 8.6 - 10. 4 mg/dL [place] Chloride [Moles/Vol] 101 mmol/L 98 - 10 7 mmol/L [place] CO2 [Moles/Vol] 28 mmol/L 20 - 31 mmol/L [place] Creatinine [Mass/Vol] 0.64 mg/dL 0.5 - 0.9 mg/dL [place] GFR >60 >60 mL/min [place], [place] GFR Non- >60 >60 mL/min [place] Glucose [Mass/Vol] 106 mg/dL High 70 - 99 mg/dL [place], [place] Interpretation and review of laboratory results Abnormal [place] Potassium [Moles/Vol] 4.9 mmol/L 3.7 - 5.3 mmol/L [place] Sodium [Moles/Vol] 136 mmol/L 135 - 144 mmol/L [place] Urea nitrogen [Mass/Vol] 22 mg/dL High 6 - 20 mg/dL [place] Basic Metabolic Profon 11-06 Calcium [Mass/Vol] 10.5 mg/dL High 8.6-10.4 [facility] Comment on above: Performed By: #### C PASHA, BMP #### [facility] [address] [place] [address] Rn Primary Care: Roger Carmen MD (cont.) [facility] Comment on above: Result Comment: Aver age GFR for 50-59 years old: 93 mL/min/1.73sq m Chronic Kidney Disease: <60 mL/min/1.73sq m Kidney failure: <15 mL/min/1.73sq m eGFR calculated using average adult body mass. Additional eGFR calculator available at: http://www.[employer]ek[employer]/multiple_crcl_2011.htm Performed By: #### C DP, BMP #### [facility] [address] [place] [address] Rn Primary Care: Roger Carmen MD Anion gap [Moles/Vol] 7 mmol/L Low 08-07 [facility] Comment on above: Performed By: #### C DP, BMP #### [facility] [address] [place] [address] Rn Primary Care: Roger Carmen MD BUN/CRE Ratio 34 High - [facility] Comment on above: Performed By: #### C DP, BMP #### [facility] [address] [place], [place] [id number] Rn Primary Care: Roger Carmen MD Chloride [Moles/Vol] 101 mmol/L Normal 98-107 [facility] Comment on above: Performed By: #### C DP, BMP #### [facility] [address] [place], [place] [id number] Rn Primary Care: Roger Carmen MD CO2 [Moles/Vol] 28 mmol/L Normal 20-31 [facility] Comment on above: Performed By: #### C DP, BMP #### [facility] [address] [place], [place] 0[address]83 Rn Primary Care: Roger Carmen MD Creatinine [Mass/Vol] 0.64 mg/dL Normal 0.50-0.90 [facility] Comment on above: Performed By: #### C DP, BMP #### [facility] [address] [place], [place] [id number] Rn Primary Care: Roger Carmen MD GFR, Amer >60 Normal >60 [facility] Comment on above: Performed By: #### C DP, BMP #### [facility] [address] [place], [place] [id number] Rn Primary Care: Roger Carmen MD GFR,non Amer >60 Normal >60 [facility] Comment on above: Performed By: #### C DP, BMP #### [facility] [address] [place], [place] [id number] Rn Primary Care: Roger Carmen MD Glucose [Mass/Vol] 106 mg/dL High 70-99 [facility] Comment on above: Performed By: #### C DP, BMP #### [facility] [address] [place], [place] [id number] Rn Primary Care: Roger Carmen MD Potassium [Moles/Vol] 4.9 mmol/L Normal 3.7-5.3 [facility] Comment on above: Performed By: #### C DP, BMP #### [facility] [address] [place] [address] Rn Primary Care: Roger Carmen MD Sodium [Moles/Vol] 136 mmol/L Normal 135-144 [facility] Comment on above: Performed By: #### C DP, BMP #### [facility] [address] [place] [address] Rn Primary Care: Roger Carmen MD Staging: Normal [facility] Comment on above: Result Comment: Stag e 1: Some kidney damage normal GFR Stage 2: Mild kidney damage GFR 60-89 Stage 3: Moderate kidney damage GFR 30-59 Stage 4: Severe kidney damage GFR 15-29 Stage 5: Severe kidney damage GFR <15 ESRD - chronic treatment by dialysis or transplant Performed By: #### C DP, BMP #### [address] [place] [address] Rn Primary Care: Roger Carmen MD Urea nitrogen [Mass/Vol] 22 mg/dL High 6-20 [facility] Comment on above: Performed By: #### C DP, BMP #### [address] [place] [address] Rn Primary Care: Roger Carmen MD CBC Auto Differentialon 10-21 Basophils (Bld) [#/Vol] 0.06 10*3/uL [place] Basophils/100 WBC (Bld) 1 % 0 - 2 % [place] Differential Type NOT REPORTED [place] Eosinophils (Bld) [#/Vol] 0.11 10*3/uL [place] Eosinophils/100 WBC (Bld) 2 % 1 - 4 % [place] Erythrocyte distribution width (RBC) [Ratio] 12.5 % 11.8 - 14.4 % [place] Hematocrit (Bld) [Volume fraction] 43.1 % 36.3 - 47.1 % [place] Hemoglobin (Bld) [Mass/Vol] 14.1 g/dL 11.9 - 15.1 g/dL [place] Immature granulocytes (Bld) [#/Vol] 0 % 0 [place] Immature granulocytes (Bld) [#/Vol] 10*3/uL [place] Lymphocytes (Bld) [#/Vol] 2.87 10*3/uL [place] Lymphocytes/100 WBC (Bld) 40 % 24 - 43 % [place] MCH (RBC) [Entitic mass] 29.4 pg 25.2 - 33.5 pg [place] MCHC (RBC) [Mass/Vol] 32.7 g/dL 28.4 - 34.8 g/dL [place] MCV (RBC) [Entitic vol] 89.8 fL 82.6 - 102.9 fL [place] Monocytes (Bld) [#/Vol] 0.58 10*3/uL [place] Monocytes/100 WBC (Bld) 8 % 3 - 12 % [place] Platelet mean volume (Bld) [Entitic vol] 10.2 fL 8.1 - 13.5 fL [place] Platelets (Bld) [#/Vol] 290 10*3/uL [place] Platelets (Bld) [#/Vol] NOT REPORTED [place] RBC (Bld) [#/Vol] 4.80 10*6/uL 3.95 - 5.1 1 m/uL [place] RBC morphology finding Nom (Bld) NOT REPORTED [place] Segmented neutrophils/100 WBC (Bld) 49 % 36 - 65 % [place] Segs Absolute 3.58 [place] WBC (Bld) [#/Vol] 0.0 10*3/uL 0.0 per 10 0 WBC [place] WBC (Bld) [#/Vol] 7.2 10*3/uL [place] WBC Morphology NOT REPORTED [place], [place] CBC with Diffon 11-06-2020 Abs. Basophil 0.06 k/uL Normal 0.00-0.20 [facility] Comment on above: Performed By: #### C DP, BMP #### [address] [place], [place] [id number] Rn Primary Care: Roger Carmen MD Abs.Imm.Granulocyte <0.03 Normal 0.00-0.30 [facility] Comment on above: Performed By: #### C DP, BMP #### [address] [place] [address] Rn Primary Care: Roger Carmen MD Abs.Neutrophil (Seg) 3.58 k/uL Normal 1.50-8.10 [facility] Comment on above: Performed By: #### C DP, BMP #### [address] [place] [id number] Rn Primary Care: Roger Carmen MD Basophils/100 WBC (Bld) 1 % Normal 0-2 [facility] Comment on above: Performed By: #### C DP, BMP #### [address] [place], [place] [address]84[address]83 Rn Primary Care: Roger Carmen MD Eosinophils (Bld) [#/Vol] 0.11 10*3/uL Normal 0.00-0.44 [facility] Comment on above: Performed By: #### C DP, BMP #### [address] [place] [id number] Rn Primary Care: Roger Carmen MD Eosinophils/100 WBC (Bld) 2 % Normal 1-4 [facility] Comment on above: Performed By: #### C DP, BMP #### [address] [place], [place] 3075483 Rn Primary Care: Roger Carmen MD Erythrocyte distribution width (RBC) [Ratio] 12.5 % Normal 11.8-14.4 [facility] Comment on above: Performed By: #### C DP, BMP #### [facility] [address] [place], [place] [id number] Rn Primary Care: Roger Carmen MD Hematocrit (Bld) [Volume fraction] 43.1 % Normal 36.3-47.1 [facility] Comment on above: Performed By: #### C DP, BMP #### [facility] [address] [place], [facility] Rn Primary Care: Roger Carmen MD Hemoglobin (Bld) [Mass/Vol] 14.1 g/dL Normal 11.9-15.1 [facility] Comment on above: Performed By: #### C DP, BMP #### [address] [place], [place] 277[address]83 Rn Primary Care: Roger Carmen MD Immature granulocytes (Bld) [#/Vol] 0 % Normal 0 [facility] Comment on above: Performed By: #### C DP, BMP #### [address] [place], [facility] Rn Primary Care: Roger Carmen MD Lymphocytes (Bld) [#/Vol] 2.87 10*3/uL Normal 1.10-3.70 [facility] Comment on above: Performed By: #### C DP, BMP #### [address] [place], [place] [address] Rn Primary Care: Roger Carmen MD Lymphocytes/100 WBC (Bld) 40 % Normal 24-43 [facility] Comment on above: Performed By: #### C DP, BMP #### [address] [place] [address]83 Rn Primary Care: Roger Carmen MD MCH (RBC) [Entitic mass] 29.4 pg Normal 25.2-33.5 [facility] Comment on above: Performed By: #### C DP, BMP #### [facility] [address] [place] [address] Dr. [place], [place] [id number] Rn Primary Care: Roger Carmen MD MCHC (RBC) [Mass/Vol] 32.7 g/dL Normal 28.4-34.8 [facility] Comment on above: Performed By: #### C DP, BMP #### [address] [place], [place] 950[address]83 Rn Primary Care: Roger Carmen MD MCV (RBC) [Entitic vol] 89.8 fL Normal 82.6-102.9 [facility] Comment on above: Performed By: #### C DP, BMP #### [address] [place], [place] 534[address]83 Rn Primary Care: Roger Carmen MD Monocytes (Bld) [#/Vol] 0.58 10*3/uL Normal 0.10-1.20 [facility] Comment on above: Performed By: #### C DP, BMP #### [address] [place], [place] 7422883 Rn Primary Care: Roger Carmen MD Monocytes/100 WBC (Bld) 8 % Normal 3-12 [facility] Comment on above: Performed By: #### C DP, BMP #### [address] [place], [place] 6[address]83 Rn Primary Care: Roger Carmen MD Neutrophil (Seg) 49 % Normal 36-65 [facility] Comment on above: Performed By: #### C DP, BMP #### [facility] [address] [place] [address] Dr. [place], [place] [address]69[address] Rn Primary Care: Roger Carmen MD NRBC Automated 0.0 per 100 WBC Normal 0.0 [facility] Comment on above: Performed By: #### C DP, BMP #### [facility] [address] [place] [address] Dr. [place], [place] 6036383 Rn Primary Care: Roger Carmen MD Platelet mean volume (Bld) [Entitic vol] 10.2 fL Normal 8.1-13.5 [facility] Comment on above: Performed By: #### C DP, BMP #### [address] [place], [place] 2610483 Rn Primary Care: Roger Carmen MD Platelets (Bld) [#/Vol] 290 10*3/uL Normal 138-453 [facility] Comment on above: Performed By: #### C DP, BMP #### [address] [place], [place] [address] Rn Primary Care: Roger Carmen MD RBC (Bld) [#/Vol] 4.80 10*6/uL Normal 3.95-5.11 [facility] Comment on above: Performed By: #### C DP, BMP #### [address] [place], [facility]83 Rn Primary Care: Roger Carmen MD WBC (Bld) [#/Vol] 7.2 10*3/uL Normal 3.5-11.3 [facility] Comment on above: Performed By: #### C DP, BMP #### [address] [place], [place] 4496283 Rn Primary Care: Roger Carmen MD Auto Diff Performed NOT REPORTED Normal [facility] Comment on above: Performed By: #### C DP, BMP #### [address] [place], [place] [address] Rn Primary Care: Roger Carmen MD Platelets (Bld) [#/Vol] NOT REPORTED Normal [facility] Comment on above: Performed By: #### C DP, BMP #### [address] [place] [address] Rn Primary Care: Roger Carmen MD RBC morphology finding Nom (Bld) NOT REPORTED Normal [facility] Comment on above: Performed By: #### C DP, BMP #### [facility] [address] [place], [place] [id number] Rn Primary Care: Roger Carmen MD WBC Morphology NOT REPORTED Normal [facility] Comment on above: Performed By: #### C DP, BMP #### [facility] [address] [place], [place] 1012883 Rn Primary Care: Roger Carmen MD EKG 12 Leadon 11-06-2020 Atrial Rate 58 BPM [facility] P Evans 56 degrees [facility] P-R Interval 144 ms [facility] Q-T Interval 408 ms [facility] QRS Duration 80 ms [facility] QTc Calculation (Bazett) 400 ms [facility] R Evans -27 degrees [facility] T Evans 24 degrees [facility], [place] Ventricular Rate 58 BPM [facility] Sinus bradycardia Otherwise normal ECG When compared with ECG of 01-NOV-2017 11:08, No significant change was found Confirmed by YEN LAM ([id number]) on 11/06/2020 1:11:01 PM [place], [place] Shaw, Mhpn Incoming Ekg Results From [facility] - 11/06/2020 1:11 PM EST Sinus bradycardia Otherwise normal ECG When compared with ECG of 01-NOV-2017 11:08, No significant change was found Confirmed by YEN LAM ([id number]) on 11/06/2020 1:11:01 PM [facility] Metabolic Panelon 11-06-2020 GFR/1.73 sq M predicted among non-blacks MDRD (S/P/Bld) [Vol rate/Area] [place] Comment on above: Average GFR for 50-5 9 years old: 93 mL/min/1.73sq m Chronic Kidney Disease: <60 mL/min/1.73sq m Kidney failure: <15 mL/min/1.73sq m eGFR calculated using average adult body mass. Additional eGFR calculator available at: http://www.Dekko.[employer]/multiple_crcl_2012.htm Stage 1: Some kidney damage normal GFR [...] Livier Simon MD 11/03/20 11:17 EST Normal [facility] SYLVIA DIGITAL SCREEN W OR WO C [...] Frances Granados MD 01/16/20 Final result Normal [facility] No evidence of malignancy. Advise annual screening [...] screening mammogram in 1 year is advised. [place] EXAMINATION: BILATERAL DIGITAL SCREENING MAMMOGRAM, 01/16/2020 [...] distortion, or significant interval changes are noted. [place] Shaw, tyler Incoming Radiant Results From [facility] - 01/16/2020 10:04 AM EST EXAMINATION: BILATERAL [...] screening mammogram in 1 year is advised. [place] Vital Signs Date Time Vital Sign Value Performing Clinician Facility 01-04-2024 13:43-0500 Body mass index (BMI) [Ratio] 28.13 kg/m2 Sheng Vidales [facility] Work Phone: [facility] 01-04-2024 13:43-0500 Body weight 69.76 kg Sheng Flash DO Work Phone: [facility] 01-04-2024 13:43-0500 Diastolic blood pressure 84 mm[Hg] Sheng Flash DO Work Phone: [facility] 01-04-2024 13:43-0500 Systolic blood pressure 134 mm[Hg] Sheng Flash DO Work Phone: [facility] 12-05-2020 12:30-0500 BP Diastolic 66 mm[Hg] [facility] [place] 12-05-2020 12:30-0500 BP Systolic 140 mm[Hg] [facility] [place] 12-05-2020 12:30-0500 Pulse (Heart Rate) 66 /min [place], [place] 12-05-2020 12:30-0500 Pulse Oximetry 97 % [place], [place] 12-05-2020 12:30-0500 Respiratory Rate 16 /min [facility] 12-05-2020 11:56-0500 Body Temperature 97.7 [degF] [facility] 12-05-2020 09:18-0500 BMI (Body Mass Index) 24.8 kg/m2 [facility] 12-05-2020 09:18-0500 Body weight 63.5 kg [facility] [place] 12-05-2020 09:18-0500 Height 160 cm [place] Encounters Encounter Date Encounter Type Care Provider Facility Start: 01-18-2024 End: 01-18-2024 ambulatory SHENG FLASH Not Available Start: 01-04-2024 End: 01-04-2024 ambulatory SHENG FLASH Not Available Start: 01-04-2024 End: 01-04-2024 Office outpatient new 20 minutes Sheng Flash DO Work Phone: [facility] OB Comment on above: Postmenopausal bleed ing Start: 12-05-2020 End: 12-05-2020 Patient encounter procedure [facility] Start: 12-05-2020 End: 12-05-2020 Subsequent hospital visit by physician Chong Layne Work Phone: [facility] OR Comment on above: Right carpal tunnel syndrome (Primary Dx) Start: 11-28-2020 End: 12-03-2020 Patient encounter procedure [facility] Start: 11-28-2020 End: 12-02-2020 Subsequent hospital visit by physician Kalli Bacon19 Pat Screening Schedule [facility] PRE ADMIT Comment on above: Preoperative testing Start: 11-06-2020 End: 11-07-2020 Patient encounter procedure [facility] Start: 11-06-2020 End: 11-06-2020 Subsequent hospital visit by physician Chad CISSE EKG Start: 01-24-2020 End: 01-25-2020 Patient encounter procedure [facility] Start: 01-24-2020 End: 01-24-2020 Subsequent hospital visit by physician Manoj Singleton [facility] Physical Therapy Comment on above: Arrived Start: 01-22-2020 End: 01-23-2020 Patient encounter procedure [facility] Start: 01-22-2020 End: 01-22-2020 Subsequent hospital visit by physician Harrison Allan [facility] Physical Therapy Comment on above: Arrived Start: 01-21-2020 End: 01-22-2020 Patient encounter procedure AYAAN Hoang [facility] Start: 01-21-2020 End: 01-21-2020 Subsequent hospital visit by physician Harriosn Allan [facility] Physical Therapy Comment on above: Arrived Start: 01-17-2020 End: 01-18-2020 Patient encounter procedure CHAD Hoang [facility] Start: 01-17-2020 End: 01-17-2020 Subsequent hospital visit by physician Harrison Allan [facility] Physical Therapy Comment on above: Arrived Start: 01-16-2020 End: 01-19-2020 Patient encounter procedure [facility] Start: 01-16-2020 End: 01-18-2020 Subsequent hospital visit by physician [facility] Mammography Room At [facility] Mammography Comment on above: Breast cancer screen ing by mammogram Start: 01-15-2020 End: 01-16-2020 Patient encounter procedure CHAD Hoang [facility] Start: 01-15-2020 End: 01-15-2020 Subsequent hospital visit by physician Harrison Allan [facility] Physical Therapy Comment on above: Arrived Start: 01-08-2020 End: 01-09-2020 Patient encounter procedure CHAD Hoang [facility] Start: 01-08-2020 End: 01-08-2020 Subsequent hospital visit by physician Harrison Allan [facility] Physical Therapy Comment on above: Arrived Start: 01-07-2020 End: 01-08-2020 Patient encounter procedure CHAD Hoang [facility] Start: 01-07-2020 End: 01-07-2020 Subsequent hospital visit by physician Harrison Allan [facility] Physical Therapy Comment on above: Arrived Start: 01-03-2020 End: 01-04-2020 Patient encounter procedure CHAD Hoang [facility] Start: 01-03-2020 End: 01-03-2020 Subsequent hospital visit by physician Harrison Allan [facility] Physical Therapy Comment on above: Arrived Start: 01-01-2020 End: 01-02-2020 Patient encounter procedure CHAD Hoang [facility] Start: 01-01-2020 End: 01-01-2020 Subsequent hospital visit by physician Harrison Allan [facility] Physical Therapy Comment on above: Arrived Start: 12-31-2019 End: 01-01-2020 Patient encounter procedure CHAD Hoang [facility] Start: 12-31-2019 End: 12-31-2019 Subsequent hospital visit by physician Manoj Singleton [facility] Physical Therapy Comment on above: Arrived Start: 12-27-2019 End: 12-28-2019 Patient encounter procedure CHAD Hoang [facility] Start: 12-27-2019 End: 12-27-2019 Subsequent hospital visit by physician Harrison Allan [facility] Physical Therapy Comment on above: Arrived Start: 12-25-2019 End: 12-26-2019 [facility] Start: 12-25-2019 End: 12-25-2019 Subsequent hospital visit by physician Harrison Allan [facility] Physical Therapy Comment on above: Arrived Start: 12-24-2019 End: 12-25-2019 Patient encounter procedure CHAD ANDERSON [facility] Start: 12-24-2019 End: 12-24-2019 Subsequent hospital visit by physician Harrison Allan [facility] Physical Therapy Comment on above: Arrived Start: 12-20-2019 End: 12-21-2019 Patient encounter procedure CHAD Hoang [facility] Start: 12-20-2019 End: 12-20-2019 Subsequent hospital visit by physician Harrison Allan [facility] Comment on above: Arrived Start: 12-18-2019 End: 12-19-2019 Patient encounter procedure CHAD Hoang [facility] Start: 12-18-2019 End: 12-18-2019 Subsequent [facility] visit by physician [facility] Comment on above: Arrived Start: 12-13-2019 End: 12-14-2019 Patient encounter procedure CHONG Grady [facility] Start: 12-13-2019 End: 12-13-2019 Subsequent hospital visit by physician Harrison Allan [facility] Comment on above: Arrived Start: 12-11-2019 End: 12-12-2019 Patient encounter procedure CHONG Grady [facility] Start: 12-11-2019 End: 12-11-2019 Subsequent hospital visit by physician Manoj Singleton PT [facility] Physical Therapy Comment on above: Arrived Procedures Date Procedure Procedure Detail Performing Clinician Start: 07-01-2022 Mammography Sheng Fazi o DO Work Phone: Start: 11-28-2020 COVID-19 Sami Jau regui Work Phone: Start: 11-06-2020 Ecg routine ecg w/le ast 12 lds w/i&r [address] Start: 11-06-2020 EKG REPORT CHONG BALDWIN [facility] Start: 11-06-2020 Basic metabolic pane l calcium total [address] Start: 11-06-2020 Blood count complete auto&auto difrntl wbc [address] Start: 11-06-2020 Ecg routine ecg w/le ast 12 lds w/i&r [place] [place] Work Phone: Start: 11-06-2020 EKG REPORT Hpf [...] 06-15-2027 Screening for malignant neoplasm of cervix [facility] Start: 01-18-2024 End: 01-18-2024 Patient encounter procedure 01/18/2024 2:40 PM EST Consult [facility] [address] [place] [id number] Sheng Vidales, DO [address] [place], [place] [id number] [facility] Start: 01-04-2024 End: 01-04-2025 US for US PELVIS-TRANSVAG IF INDICATED Imaging Routine Postmenopausal bleeding Expected: 01/04/2024 (Approximate), Expires: 01/04/2025 [facility] Work Phone: Comment on above: Expected: 01/04/2024 (Approximate), Expires: 01/04/2025 Start: 07-22-2023 Influenza vaccination Influenza Vacc ine (#1) [facility] Start: 07-01-2023 Screening for malignant neoplasm of breast Mammogram [facility] Start: 01-16-2022 Screening for malignant neoplasm of breast [facility] [place] Start: 12-05-2020 End: 12-05-2020 Hospital Encounter [facility] Comment on above: CARPAL TUNNEL RELEAS E ENDOSCOPIC Start: 2020 Screening for malignant neoplasm of colon Colon cancer screen colonoscopy [place], [place] Start: 2020 Shingles Vaccine (1 of 2) Shingles Vaccine (1 of 2) [facility] Work Phone: Start: 07-22-2020 Influenza vaccination Flu vaccine (# 1) [facility] [place], [place] Start: 01-25-2020 End: 01-25-2020 Appointment [...] 01-16-2020 End: 01-16-2020 Appointment 01/16/2020 Appointment Radiology [facility] Start: 01-15-2020 End: 01-15-2020 [facility] Start: 01-14-2020 End: [...] Appointment 12/27/2019 Appointment Physical Therapy Harrison Allan [facility] Start: 12-25-2019 End: 12-25-2019 Hospital Encounter [facility] Start: 12-24-2019 End: 12-24-2019 Patient encounter procedure 12/24/2019 Appointment Physical Therapy Harrison Allan [facility] Start: 12-20-2019 End: 12-20-2019 Patient encounter procedure 12/20/2019 Appointment Physical Therapy Harrison Allan [facility] Start: 12-18-2019 End: 12-18-2019 Patient encounter procedure 12/18/2019 Appointment Physical Therapy Harrison Allan [facility] Start: 12-13-2019 End: 12-13-2019 Patient encounter procedure 12/13/2019 Appointment Physical Therapy Harrison Allan [facility] Start: 07-22-2019 Influenza vaccination Flu vaccine (# 1) [facility] [employer] Phone: Start: 2010 Lipid panel Lipid screen [place], [place] Start: 2010 Lipid screen Lipid screen [facility] [employer] Phone: Start: 1991 Cervical cancer screen Cervical canc er screen [facility] [employer] Phone: Start: 1991 Screening for malignant neoplasm of cervix [facility] Start: 1989 DTaP/Tdap/Td vaccine (1 - Tdap) DTaP/Tdap/Td vaccine (1 - Tdap) [place], [place] Start: 1985 HIV screen HIV screen [facility] [employer] Phone: Start: 1985 HIV screening HIV screen [address], [place] Start: 1981 DTaP/Tdap/Td vaccine (1 - Tdap) DTaP/Tdap/Td vaccine (1 - Tdap) [facility] [employer] Phone: Start: 1970 Hepatitis C screening Hepatitis C sc reen [place], [place] Start: 1970 Screening for malignant neoplasm of colon [facility] Phase I & II - meter ed glucose Phase I & II - metered glucose Point of Care Testing Routine As Needed until discontinued starting 12/05/2020 [facility], [place] Comment on above: As Needed until disc ontinued starting 12/05/2020 Immunizations Immunization Date Immunization Notes Care Provider Ana coleman 11-20-2015 influenza virus vacc ine, unspecified formulation Sheng Vidales DO Work Phone: [facility] Healthcare Payers Date Payer Category Payer Unknown [employer] [id number] 2024-Present [address] [place] [address] [id number] 2024 Unknown [id number] 2019 Unknown [facility] [id number] xxxxxxxxxxx 2019-Present [address] [address] [place] [address] xxxxxxxxx [id number] 2019 Unknown [id number]. [id number] 2019 Unknown [id number] 1.2.840.290739.1.13.239.2.7. [id number] 2019 Unknown [id number] 1970 Unknown [id number] 2.16.840.1.304384.3.579.2.17 3 1970 Unknown [id number] 2.16.840.1.145789.3.579.2.17 3 1970 Unknown [id number] 2.16.840.1.545603.3.579.2.17 3 1970 Unknown [id number] 2.16.840.1.810043.3.579.2.17 3 1970 Unknown [id number] 2.16.840.1.969911.3.579.2.17 3 1970 Unknown [id number] 2.16.840.1.945639.3.579.2.17 3 1970 Unknown [id number] 2.16.840.1.682051.3.579.2.17 3 1970 Unknown [id number] 2.16.840.1.777733.3.579.2.17 3 1970 Unknown [id number] 2.16.840.1.225400.3.579.2.17 3 1970 Unknown [id number] 2.16.840.1.941674.3.579.2.17 3 1970 Unknown [id number] 2.16.840.1.601493.3.579.2.17 3 1970 Unknown [id number] 2.16.840.1.401213.3.579.2.17 3 1970 Unknown [id number] 2.16.840.1.334423.3.579.2.17 3 1970 Unknown [id number] 2.16.840.1.360308.3.579.2.17 3 1970 Unknown [id number] 2.16.840.1.897829.3.579.2.17 3 1970 Unknown [id number] 2.16.840.1.372107.3.579.2.17 3 1970 Unknown [id number] 2.16.840.1.037848.3.579.2.17 3 1970 Unknown [id number] 2.16.840.1.254013.3.579.2.17 3 1970 Unknown [id number] 2.16.840.1.169771.3.579.2.17 3 1970 Unknown [id number] 2.16.840.1.932323.3.579.2.17 3 1970 Unknown [id number] 2.16.840.1.251889.3.579.2.17 3 1970 Unknown [id number] 2.16.840.1.179173.3.579.2.17 3 1970 Unknown [id number] 2.16.840.1.415491.3.579.2.12 59 1970 Unknown [id number] 2.16.840.1.664855.3.579.2.12 59 Social History Date Type Detail Facility Start: 11-15-2017 End: 11-27-2020 Tobacco smoking status HIIS Former smoker Last Guide Phone: End: 02-19-2006 History of tobacco use Current smoker Last Guide Phone: End: 02-19-2006 History of tobacco use Cigarette Smoker Last Guide Phone: Start: 11-15-2017 End: 11-27-2020 Alcohol intake Current non-drinker of alcohol (finding) Last Guide Phone: Sex Assigned At Not on file Last Guide Phone: Start: 11-15-2017 End: 11-27-2020 Tobacco use and exposure Never used [facility] [employer] Exposure to SARS-CoV -2 (event) Not sure [facility] Start: 12-08-2023 Tobacco smoking stat [facility] Never smoked tobacco [facility] Start: [...] of Present illness Narrative 01-04-2024 Margo Mathias, DB2 DEVELOPER - 01/04/2024 1:20 PM EST Note Date [...] syndrome of right wrist Ectopic Hypertension (CMS/HCC) Ritchie exposure Seasonal allergies Family History Problem Relation [...] SURGERY left tube removed WISDOM TOOTH EXTRACTION Fountain teeth Allergies Allergen Reactions Paoli Oil Other Reaction(s): Unknown Glycerin Other Reaction(s): [...] nursing note reviewed. Exam conducted with a computer architect present. Vitals: Estimated body mass index is [...] Facility 12-20-2019 History of Present illness Narrative [facility] Daily Note Patient: Jacek Larose : 1970 CSN #: [id number] Referring Practitioner: Chong Wright MD Referral Date : 12/05/19 Date: 12/20/2019 Diagnosis: Incomplete tear of L rotator cuff, M75.112, Bursitis of L shoulder, M75.52 Treatment Diagnosis: L SLAP tear, incomplete rotator cuff tear Onset Date: 09/25/19 PT Insurance Information: NextInput Total # of Visits Approved: 18 Per [...] []Not met []Met []Partially met []Not met P[employer] Goals - Time Frame for technician terminal and repeater goals : 6 weeks technician terminal and repeater goal 1: Patient will be independent and compliant with a HEP []Met []Partially met []Not met skilled nursing goal 2: Patient will improve L shoulder AROM to match right for ADLs []Met []Partially met []Not met skilled nursing goal 3: Patient will improve L shoulder strength to >/=4/5 in all major joints and planes []Met []Partially met []Not met skilled nursing goal 4: Patient will report decreased pain to <5/10 at worst. 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 Date: 12/20/2019 documented in this encounter [employer] Work Phone: History of Present illness Narrative 12-13-2019 Harrison Allan - 12/13/2019 8:15 AM EST Note Date & Type Note Facility 12-13-2019 History of Present illness Narrative [facility] Daily Note Patient: Jacek Larose : 1970 CSN #: [id number] Referring Practitioner: Chong Wright MD Referral Date : 12/05/19 Date: 12/13/2019 Diagnosis: Incomplete tear of L rotator cuff, M75.112, Bursitis of L shoulder, M75.52 Treatment Diagnosis: L SLAP tear, incomplete rotator cuff tear Onset Date: 09/25/19 PT Insurance Information: NextInput Total # of Visits Approved: 18 Per [...] []Not met []Met []Partially met []Not met Long-Term Goals - Time Frame for technician terminal and repeater goals : 6 weeks technician terminal and repeater goal 1: Patient will be independent and compliant with a HEP []Met []Partially met []Not met skilled nursing goal 2: Patient will improve L shoulder AROM to match right for ADLs []Met []Partially met []Not met skilled nursing goal 3: Patient will improve L shoulder [...] Code Treatment Minutes: 54 Minutes 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 HEALTH 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 Date: 12/13/2019 documented in this encounter [facility] Work Phone: History of Present illness Narrative 12-11-2019 Manoj Singleton, PT - 12/11/2019 8:45 AM EST Note Date & Type Note Facility 12-11-2019 History of Present illness Narrative [facility] Evaluation Date: 12/11/2019 Patient: Jacek Larose : 1970 CSN #: [id number] Referring Practitioner: Chong Wright MD Referral Date : 12/05/19 Diagnosis: Incomplete tear of L rotator cuff, M75.112, Bursitis of L shoulder, M75.52 Treatment Diagnosis: L SLAP tear, incomplete rotator cuff tear Onset Date: 09/25/19 PT Insurance Information: NextInput Total # of Visits Approved: 18 Total [...] L shoulder flexion to >135* for ADLs skilled nursing goals Time Frame for skilled nursing goals : 6 weeks skilled nursing goal 1: Patient will be independent and compliant with a HEP skilled nursing goal 2: Patient will improve L shoulder AROM to match right for ADLs skilled nursing goal 3: Patient will improve L shoulder strength to >/=4/5 in all major joints and planes skilled nursing goal 4: Patient will report decreased pain to <5/10 at worst. Patient goals : Be able to return to pull-ups, push-ups, and crossfit activities Minutes Tracking: Time In: 844 Time Out: 937 Minutes: 53 Total minutes: 51 Manoj Singleton PT, DPT 12/11/2019 documented in this encounter Last Guide Phone: Evaluation note Note Date & Type Note Facility Evaluation note Diagnosis Postmenopausal bleeding documented in this encounter [facility] History of Present Illness * Harrison Allan - 12/24/2019 8:30 AM EST [facility] Daily Note Patient: Jacek Larose : 1970 CSN #: [id number] Referring Practitioner: Chong Wright MD Referral Date : 12/05/19 Date: 12/24/2019 Diagnosis: Incomplete tear of L rotator cuff, M75.112, Bursitis of L shoulder, M75.52 Treatment Diagnosis: L SLAP tear, incomplete rotator cuff tear Onset Date: 09/25/19 PT Insurance Information: NextInput Total # of Visits Approved: 18 Per [...] []Not met []Met []Partially met []Not met Long-Term Goals - Time Frame for technician terminal and repeater goals : 6 weeks skilled nursing goal 1: Patient will be independent and compliant with a HEP []Met []Partially met []Not met technician terminal and repeater goal 2: Patient will improve L shoulder AROM to match right for ADLs []Met []Partially met []Not met skilled nursing goal 3: Patient will improve L shoulder strength to >/=4/5 in all major joints and planes []Met []Partially met []Not met skilled nursing goal 4: Patient will report decreased pain to <5/10 at worst. 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 HEALTH 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 Date: 12/24/2019 documented in this encounter* Harrison Allan - 12/27/2019 8:15 AM EST [facility] Daily Note Patient: Jacek Larose : 1970 CSN #: [id number] Referring Practitioner: Chong Wright MD Referral Date : 12/05/19 Date: 12/27/2019 Diagnosis: Incomplete tear of L rotator cuff, M75.112, Bursitis of L shoulder, M75.52 Treatment Diagnosis: L SLAP tear, incomplete rotator cuff tear Onset Date: 09/25/19 PT Insurance Information: NextInput Total # of Visits Approved: 18 Per [...] []Not met []Met []Partially met []Not met Long-Term Goals - Time Frame for skilled nursing goals : 6 weeks skilled nursing goal 1: Patient will be independent and [...] Code Treatment Minutes: 70 Minutes 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 HEALTH 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 Date: 12/27/2019 documented in this encounter* Manoj Singleton, PT - 12/31/2019 10:30 AM EST [facility] Daily Note Patient: Jacek Larose : 1970 CSN #: [id number] Referring Practitioner: Chong Wright MD Referral Date : 12/05/19 Date: 12/31/2019 Diagnosis: Incomplete tear of L rotator cuff, M75.112, Bursitis of L shoulder, M75.52 Treatment Diagnosis: L SLAP tear, incomplete rotator cuff tear Onset Date: 09/25/19 PT Insurance Information: NextInput Total # of Visits Approved: 18 Per [...] []Not met []Met []Partially met []Not met Pizzamaker Goals - Time Frame for skilled nursing goals : 6 weeks skilled nursing goal 1: Patient will be independent and [...] Harrison Allan - 01/01/2020 8:15 AM EST [facility] Daily Note Patient: Jacek Larose : 1970 CSN #: [id number] Referring Practitioner: Chong Layne MD Referral Date : 12/05/19 Date: 01/01/2020 Diagnosis: Incomplete tear of L rotator cuff, M75.112, Bursitis of L shoulder, M75.52 Treatment Diagnosis: L SLAP tear, incomplete rotator cuff tear Onset Date: 09/25/19 PT Insurance Information: NextInput Total # of Visits Approved: 18 Per [...] []Not met []Met []Partially met []Not met Pizzamaker Goals - Time Frame for skilled nursing goals : 6 weeks technician terminal and repeater goal 1: Patient will be independent and compliant with a HEP []Met []Partially met []Not met technician terminal and repeater goal 2: Patient will improve L shoulder AROM to match right for ADLs - PROGRESSING []Met []Partially met []Not met skilled nursing goal 3: Patient will improve L shoulder [...] Code Treatment Minutes: 68 Minutes 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 HEALTH 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 Date: 01/01/2020 documented in this encounter* Harrison Allan - 01/03/2020 8:15 AM EST [facility] Daily Note Patient: Jacek Larose : 1970 CSN #: [id number] Referring Practitioner: Chong Layne MD Referral Date : 12/05/19 Date: 01/03/2020 Diagnosis: Incomplete tear of L rotator cuff, M75.112, Bursitis of L shoulder, M75.52 Treatment Diagnosis: L SLAP tear, incomplete rotator cuff tear Onset Date: 09/25/19 PT Insurance Information: NextInput Total # of Visits Approved: 18 Per [...] []Not met []Met []Partially met []Not met Long-Term Goals - Time Frame for technician terminal and repeater goals : 6 weeks skilled nursing goal 1: Patient will be independent and compliant with a HEP []Met []Partially met []Not met technician terminal and repeater goal 2: Patient will improve L shoulder AROM to match right for ADLs - PROGRESSING []Met []Partially met []Not met skilled nursing goal 3: Patient will improve L shoulder strength to >/=4/5 in all major joints and planes -PROGRESSING []Met []Partially met []Not met skilled nursing goal 4: Patient will report decreased pain to <5/10 at worst - PROGRESSING []Met []Partially met []Not met []Met []Partially met []Not met Minutes Tracking: Time In: 812 Time Out: 921 Minutes: 69 Timed Code Treatment Minutes: 65 Minutes 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 HEALTH 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 Date: 01/03/2020 documented in this encounter* Harrison Allan - 01/07/2020 8:30 AM EST [facility] Daily Note Patient: Jacek Larose : 1970 CSN #: [id number] Referring Practitioner: Chong Layne MD Referral Date : 12/05/19 Date: 01/07/2020 Diagnosis: Incomplete tear of L rotator cuff, M75.112, Bursitis of L shoulder, M75.52 Treatment Diagnosis: L SLAP tear, incomplete rotator cuff tear Onset Date: 09/25/19 PT Insurance Information: NextInput Total # of Visits Approved: 18 Per [...] []Not met []Met []Partially met []Not met Pizzamaker Goals - Time Frame for technician terminal and repeater goals : 6 weeks technician terminal and repeater goal 1: Patient will be independent and compliant with a HEP []Met []Partially met []Not met skilled nursing goal 2: Patient will improve L shoulder AROM to match right for ADLs - PROGRESSING []Met []Partially met []Not met skilled nursing goal 3: Patient will improve L shoulder strength to >/=4/5 in all major joints and planes -PROGRESSING []Met []Partially met []Not met skilled nursing goal 4: Patient will report decreased pain to <5/10 at worst - PROGRESSING []Met []Partially met []Not met []Met []Partially met []Not met Minutes Tracking: Time In: 834 Time Out: 947 Minutes: 73 Timed Code Treatment Minutes: 70 Minutes 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 HEALTH 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 Date: 01/07/2020 documented in this encounter* Harrison Allan - 01/08/2020 8:15 AM EST [facility] Daily Note Patient: Jacek Larose : 1970 CSN #: [id number] Referring Practitioner: Chong Layne MD Referral Date : 12/05/19 Date: 01/08/2020 Diagnosis: Incomplete tear of L rotator cuff, M75.112, Bursitis of L shoulder, M75.52 Treatment Diagnosis: L SLAP tear, incomplete rotator cuff tear Onset Date: 09/25/19 PT Insurance Information: NextInput Total # of Visits Approved: 18 Per [...] has increased thru modified exercise. Pt to seeYork Tomorrow Patient Education Patient Education: HEP Pt [...] []Not met []Met []Partially met []Not met Long-Term Goals - Time Frame for skilled nursing goals : 6 weeks skilled nursing goal 1: Patient will be independent and compliant with a HEP []Met []Partially met []Not met skilled nursing goal 2: Patient will improve L shoulder AROM to match right for ADLs - PROGRESSING []Met []Partially met []Not met skilled nursing goal 3: Patient will improve L shoulder strength to >/=4/5 in all major joints and planes -PROGRESSING []Met []Partially met []Not met skilled nursing goal 4: Patient will report decreased pain to <5/10 at worst - PROGRESSING []Met []Partially met []Not met []Met []Partially met []Not met Minutes Tracking: Time In: 814 Time Out: 929 Minutes: 75 Timed Code Treatment Minutes: 70 Minutes 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 HEALTH 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 Date: 01/08/2020 documented in this encounter* Harrison Allan - 01/15/2020 8:15 AM EST [facility] Daily Note Patient: Jacek Larose : 1970 CSN #: [id number] Referring Practitioner: Chong Layne MD Referral Date : 12/05/19 Date: 01/15/2020 Diagnosis: Incomplete tear of L rotator cuff, M75.112, Bursitis of L shoulder, M75.52 Treatment Diagnosis: L SLAP tear, incomplete rotator cuff tear Onset Date: 09/25/19 PT Insurance Information: NextInput Total # of Visits Approved: 18 Per [...] limited> [facility] states she did [...] []Not met []Met []Partially met []Not met Pizzamaker Goals - Time Frame for skilled nursing goals : 6 weeks skilled nursing goal 1: Patient will be independent and compliant with a HEP []Met []Partially met []Not met technician terminal and repeater goal 2: Patient will improve L shoulder AROM to match right for ADLs - PROGRESSING []Met []Partially met []Not met skilled nursing goal 3: Patient will improve L shoulder [...] Code Treatment Minutes: 70 Minutes 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 HEALTH 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 Date: 01/15/2020 documented in this encounter* Harrison Allan - 01/17/2020 8:15 AM EST [facility] Daily Note Patient: Jacek Larose : 1970 CSN #: [id number] Referring Practitioner: Chong Layne MD Referral Date : 12/05/19 Date: 01/17/2020 Diagnosis: Incomplete tear of L rotator cuff, M75.112, Bursitis of L shoulder, M75.52 Treatment Diagnosis: L SLAP tear, incomplete rotator cuff tear Onset Date: 09/25/19 PT Insurance Information: NextInput Total # of Visits Approved: 18 Per [...] []Not met []Met []Partially met []Not met Long-Term Goals - Time Frame for skilled nursing goals : 6 weeks skilled nursing goal 1: Patient will be independent and compliant with a HEP []Met []Partially met []Not met skilled nursing goal 2: Patient will improve L shoulder [...] Code Treatment Minutes: 76 Minutes 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 HEALTH 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 Date: 01/17/2020 documented in this encounter* Missygume Harrison Castillo - 01/21/2020 8:30 AM EST [facility] Daily Note Patient: Jacek Larose : 1970 CSN #: [id number] Referring Practitioner: Chong Layne MD Referral Date : 12/05/19 Date: 01/21/2020 Diagnosis: Incomplete tear of L rotator cuff, M75.112, Bursitis of L shoulder, M75.52 Treatment Diagnosis: L SLAP tear, incomplete rotator cuff tear Onset Date: 09/25/19 PT Insurance Information: NextInput Total # of Visits Approved: 18 Per [...] []Not met []Met []Partially met []Not met Long-Term Goals - Time Frame for technician terminal and repeater goals : 6 weeks technician terminal and repeater goal 1: Patient will be independent and compliant with a HEP []Met []Partially met []Not met technician terminal and repeater goal 2: Patient will improve L shoulder AROM to match right for ADLs - PROGRESSING []Met []Partially met []Not met skilled nursing goal 3: Patient will improve L shoulder strength to >/=4/5 in all major joints and planes -PROGRESSING []Met []Partially met []Not met technician terminal and repeater goal 4: Patient will report decreased pain to <5/10 at worst - PROGRESSING []Met []Partially met []Not met []Met []Partially met []Not met Minutes Tracking: Time In: 0830 Time Out: 0930 Minutes: 60 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 HEALTH 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 Date: 01/21/2020 documented in this encounter* Harrison Allan - 01/22/2020 8:15 AM EST [facility] Daily Note Patient: Jacek Larose : 1970 CSN #: [id number] Referring Practitioner: Chong Layne MD Referral Date : 12/05/19 Date: 01/22/2020 Diagnosis: Incomplete tear of L rotator cuff, M75.112, Bursitis of L shoulder, M75.52 Treatment Diagnosis: L SLAP tear, incomplete rotator cuff tear Onset Date: 09/25/19 PT Insurance Information: NextInput Total # of Visits Approved: 18 Per [...] 15x Exercise 17: Lat pulldowns 8 pl [id number], 6pl waist Exercise 18: SL abduction and [...] []Not met []Met []Partially met []Not met Pizz[employer] Goals - Time Frame for technician terminal [...] Code Treatment Minutes: 57 Minutes 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 HEALTH 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 Date: 01/22/2020 documented in this encounter* Manoj Singleton, PT - 01/24/2020 8:30 AM EST [facility] Daily Note Patient: Jacek Larose : 1970 CSN #: [id number] Referring Practitioner: Chong Layne MD Referral Date : 12/05/19 Date: 01/24/2020 Diagnosis: Incomplete tear of L rotator cuff, M75.112, Bursitis of L shoulder, M75.52 Treatment Diagnosis: L SLAP tear, incomplete rotator cuff tear Onset Date: 09/25/19 PT Insurance Information: NextInput Total # of Visits Approved: 18 Per [...] 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 [...] []Not met []Met []Partially met []Not met [employer] Goals - Time Frame for technician terminal and repeater goals : 6 weeks skilled nursing goal 1: Patient will be independent and compliant with a HEP -MET [x]Met []Partially met []Not met skilled nursing goal 2: Patient will improve L shoulder AROM to match right for ADLs - PROGRESSING []Met [x]Partially met []Not met skilled nursing goal 3: Patient will improve L shoulder [...] Allan Anna - 12/25/2019 8:15 AM EST [facility] Daily Note Patient: Jacek Larose : 1970 CSN #: [id number] Referring Practitioner: Chong Wright MD Referral Date : 12/05/19 Date: 12/25/2019 Diagnosis: Incomplete tear of L rotator cuff, M75.112, Bursitis of L shoulder, M75.52 Treatment Diagnosis: L SLAP tear, incomplete rotator cuff tear Onset Date: 09/25/19 PT Insurance Information: NextInput Total # of Visits Approved: 18 Per [...] []Not met []Met []Partially met []Not met Long-Term Goals - Time Frame for technician terminal [...] Code Treatment Minutes: 62 Minutes 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 HEALTH 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 Date: 12/25/2019 documented in this encounter Advance Directives No Advanced Directives Records FoundDocuments on File Type Date Recorded 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 Call [phone] forurgent questions after 5PM until 8AM 10. [...] WO CAD BILATERAL Chad Anderson MD [address] [place] [address] Fax: Additional Source Comments INFORMATION SOURCE (unrecogn ized section and content) DATE CREATED AUTHOR 11/05/2020 [facility] DATE CREATED AUTHOR AUTHOR'S ORGANIZ ATION 12/05/2020 [facility] DATE CREATED AUTHOR AUTHOR'S ORGANIZ ATION 07/14/2022 [facility] DATE CREATED AUTHOR AUTHOR'S ORGANIZ ATION 01/21/2024 [facility] d[facility] Specialists EPIC Reason for Visit (unrecogniz ed section and content) Status Reason Specialty Diagnoses / Procedures Referre d By Contact Referred To Contact Diagnoses Carpal tunnel syndrome on right RIGHT CARPAL TUNNEL SYNDROME Procedures ME WRIST ARTHROSCOP,RELEASE XVERS LIG CARPAL TUNNEL RELEASE ENDOSCOPIC Chong Layne MD [address] [place] [address] [facility] Status Reason Specialty Diagnoses / Procedures Referre d By Contact Referred To Contact Open Radiology Diagnoses Encounter for screening mammogram for malignant neoplasm of breast Procedures HC MAMMO SCREENING INCL CAD IF PERF HC MAMMOGRAM DIGITAL SCREEN BILAT Chad Anderson MD [address] [place] [address] Fax: [facility] [address] [place] [id number] Reason Comments postmenopausal bleeding Ordered Prescriptions (unrec [...] Care Teams (unrecognized sec tion and content) [place] [employer] Relationship Specialty Start Date End Date Chad Anderson MD [address] [place] [address] (work) PCP - General Family Medicine 03/29/23 [...] BE BASED ON THE PRIMARY CLINICAL RECORDS. [employer] [facility]. provides no warranty or guarantee of the accuracy or completeness of information in this document.
[2024-03-30 19:07] LABS: Age Gdln ACOG Testing Note (.); HPV Aptima Negative (Negative); IGP, Aptima HPV, rfx 16/18,45 Note (.)
== END 2024-03-26 20:29 | disposition home or self-care (01) ==
LOC: LAB 20:28
PROVIDERS: Family Provider Family Medicine; PCP Family Medicine; Visit Provider Physician Assistant
DX: Z01.419 Encounter for gynecological examination (general) (routine) without abnormal findings (principal)
CPT/HCPCS: 87624; G0145